=== PATIENT | male | born 1980 | race Caucasian/White ===

== ENCOUNTER 2016-09-18 21:07 | Emergency (ER) | payer MEDICAID ==
[2011-04-18 13:51] VITALS: BMI 33.2
[2016-09-18 22:16] LABS: APPEARANCE CLEAR (CLEAR); COLOR YELLOW (YELLOW); SPECIFIC GRAVITY 1.015 (1.005-1.020)
[2016-09-18 22:17] LABS: BILIRUBIN NEGATIVE (NEGATIVE); GLUCOSE NEGATIVE (NEGATIVE); KETONE NEGATIVE (NEGATIVE); LEUKOCYTE ESTERASE NEGATIVE (NEGATIVE); NITRITE NEGATIVE (NEGATIVE); PROTEIN NEGATIVE (NEGATIVE); UROBILINOGEN NORMAL (NORMAL)
[2016-09-18 22:56] LABS: BASOPHILS 0.3 % (0-2); EOSINOPHILS 2.4 % (0-7); HEMATOCRIT 51.4 % (42.0-54.0); HEMOGLOBIN 17.8 g/dL (13.5-17.5); IMMATURE GRANULOCYTES 0.3 % (0-5); LYMPHOCYTES 37.7 % (15-50); MCHC 34.6 g/dL (31.0-37.0); MCV 92.3 fL (80.0-100.0); MEAN PLATELET VOLUME 11.3 fL (7.4-10.4); NEUTROPHILS 53.3 % (40-80); PLATELET COUNT 220 10x3/uL (130-400); RBC 5.57 10x6/uL (4.20-6.10); RDW 13.4 % (11.5-14.5); WBC 11.6 10x3/uL (4.8-10.8)
[2016-09-18 23:07] LABS: ALBUMIN 3.9 g/dL (3.4-5.0); ALKALINE PHOSPHATASE 123 U/L (46-116); ALT (SGPT) 73 U/L (10-68); BILIRUBIN - TOTAL 0.51 mg/dL (0.2-1.3); CALC OSMOLALITY 279 mosm/kg (275-300); CALCIUM 9.3 mg/dL (8.5-10.1); CARBON DIOXIDE 26.8 mmol/L (21.0-32.0); CHLORIDE - SERUM 103 mmol/L (98-107); CREATININE - SERUM 0.9 mg/dL (0.6-1.3); GLUCOSE 110 mg/dL (74-106); POTASSIUM - SERUM 4.4 mmol/L (3.5-5.1); SODIUM 140 mmol/L (136-145); UREA NITROGEN 13 mg/dL (7-18); eGFR NON AFRICAN AMERICAN > 90 mL/min (90-120)
== END 2016-09-19 01:27 | disposition home or self-care (01) ==
LOC: D.ER 21:07
PROVIDERS: Emergency Medicine
DX: R10.2 Pelvic and perineal pain (principal); M54.5 Low back pain; R19.7 Diarrhea, unspecified; R11.2 Nausea with vomiting, unspecified

== ENCOUNTER 2016-11-23 22:30 | Emergency (ER) | payer MEDICAID ==
[2011-04-18 13:51] VITALS: BMI 33.2
== END 2016-11-24 00:35 | disposition home or self-care (01) ==
LOC: D.ER 22:30
DX: M25.572 Pain in left ankle and joints of left foot (principal); F17.200 Nicotine dependence, unspecified, uncomplicated

== ENCOUNTER 2016-11-27 11:45 | Emergency (ER) | payer MEDICAID ==
[2011-04-18 13:51] VITALS: BMI 33.2
== END 2016-11-27 15:05 | disposition home or self-care (01) ==
LOC: D.ER 11:45
DX: M25.572 Pain in left ankle and joints of left foot (principal); S82.402A Unspecified fracture of shaft of left fibula, initial encounter for closed fracture; X58.XXXA Exposure to other specified factors, initial encounter; Y93.89 Activity, other specified; Y92.89 Other specified places as the place of occurrence of the external cause; F17.200 Nicotine dependence, unspecified, uncomplicated

== ENCOUNTER 2016-12-16 12:14 | Emergency (ER) | payer MEDICAID ==
[2011-04-18 13:51] VITALS: BMI 33.2
[2016-12-16 12:56] LABS: BASOPHILS 0.3 % (0-2); EOSINOPHILS 1.4 % (0-7); HEMATOCRIT 48.7 % (42.0-54.0); HEMOGLOBIN 17.4 g/dL (13.5-17.5); IMMATURE GRANULOCYTES 0.2 % (0-5); LYMPHOCYTES 26.8 % (15-50); MCH 32.2 pg (26.0-34.0); MCHC 35.7 g/dL (31.0-37.0); MEAN PLATELET VOLUME 11.3 fL (7.4-10.4); MONOCYTES 5.6 % (2-11); NEUTROPHILS 65.7 % (40-80); PLATELET COUNT 199 10x3/uL (130-400); RBC 5.41 10x6/uL (4.20-6.10); WBC 11.1 10x3/uL (4.8-10.8)
[2016-12-16 13:09] LABS: ALBUMIN 3.7 g/dL (3.4-5.0); ALKALINE PHOSPHATASE 110 U/L (46-116); ALT (SGPT) 110 U/L (10-68); BILIRUBIN - TOTAL 0.92 mg/dL (0.2-1.3); CALC OSMOLALITY 279 mosm/kg (275-300); CALCIUM 9.3 mg/dL (8.5-10.1); CHLORIDE - SERUM 103 mmol/L (98-107); GLUCOSE 122 mg/dL (74-106); POTASSIUM - SERUM 4.1 mmol/L (3.5-5.1); PROTEIN - SERUM 7.9 g/dL (6.4-8.2); SODIUM 140 mmol/L (136-145); UREA NITROGEN 13 mg/dL (7-18); eGFR NON AFRICAN AMERICAN 89 mL/min (90-120)
[2016-12-16 13:28] LABS: CKMB 1.2 U/L (0.0-3.6); CREATINE KINASE 220 UL (21-232)
[2016-12-16 13:31] LABS: TROPONIN-I < 0.017 ng/mL (0.000-0.060)
== END 2016-12-16 14:20 | disposition home or self-care (01) ==
LOC: D.ER 12:14
PROVIDERS: Emergency Medicine
DX: R07.9 Chest pain, unspecified (principal); F17.200 Nicotine dependence, unspecified, uncomplicated

== ENCOUNTER 2017-06-05 11:32 | Emergency (ER) | payer MEDICAID ==
[2011-04-18 13:51] VITALS: BMI 33.2
[2017-06-05 12:12] LABS: BASOPHILS 0.2 % (0-2); EOSINOPHILS 1.6 % (0-7); HEMATOCRIT 49.3 % (42.0-54.0); HEMOGLOBIN 17.1 g/dL (13.5-17.5); IMMATURE GRANULOCYTES 0.2 % (0-5); LYMPHOCYTES 26.1 % (15-50); MCH 31.7 pg (26.0-34.0); MCHC 34.7 g/dL (31.0-37.0); MCV 91.5 fL (80.0-100.0); MEAN PLATELET VOLUME 11.3 fL (7.4-10.4); MONOCYTES 5.5 % (2-11); NEUTROPHILS 66.4 % (40-80); PLATELET COUNT 188 10x3/uL (130-400); RBC 5.39 10x6/uL (4.20-6.10); RDW 13.1 % (11.5-14.5); WBC 10.4 10x3/uL (4.8-10.8)
[2017-06-05 12:17] LABS: INR 1.02 (0.85-1.17)
[2017-06-05 12:19] LABS: D-DIMER-QUANTITATIVE < 0.27 ug/mLFEU (0.20-0.54)
[2017-06-05 12:38] LABS: ALBUMIN 3.5 g/dL (3.4-5.0); ALKALINE PHOSPHATASE 106 U/L (46-116); ALT (SGPT) 137 U/L (10-68); BILIRUBIN - TOTAL 0.84 mg/dL (0.2-1.3); CALC OSMOLALITY 273 mosm/kg (275-300); CALCIUM 8.3 mg/dL (8.5-10.1); CHLORIDE - SERUM 104 mmol/L (98-107); CREATININE - SERUM 1.1 mg/dL (0.6-1.3); GLUCOSE 121 mg/dL (74-106); POTASSIUM - SERUM 4.1 mmol/L (3.5-5.1); PROTEIN - SERUM 7.4 g/dL (6.4-8.2); SODIUM 136 mmol/L (136-145); UREA NITROGEN 16 mg/dL (7-18); eGFR NON AFRICAN AMERICAN 79 mL/min (90-120)
[2017-06-05 12:42] LABS: UDS - AMPHET NEGATIVE QUAL (NEGATIVE); UDS - BARB NEGATIVE QUAL (NEGATIVE); UDS - BENZO NEGATIVE QUAL (NEGATIVE); UDS - COCAINE NEGATIVE QUAL (NEGATIVE); UDS - OPIATE NEGATIVE QUAL (NEGATIVE); UDS - PCP NEGATIVE QUAL (NEGATIVE); UDS - THC NEGATIVE QUAL (NEGATIVE)
[2017-06-05 12:43] LABS: CHOL - HDL RATIO 5.7 ratio (2.3-4.9); CHOLESTEROL, TOTAL 182 mg/dL (0-200); CKMB 1.4 U/L (0.0-3.6); CREATINE KINASE 138 UL (21-232); HDL CHOLESTEROL 32 mg/dL (32-96); LDL CHOLESTEROL 79 mg/dL (0-100); LDL-HDL RATIO 2.5 ratio (1.5-3.5); PRO BNP 13 pg/mL (0-125); TRIGLYCERIDE 357 mg/dL (30-200)
[2017-06-05 12:44] LABS: TROPONIN-I < 0.017 ng/mL (0.000-0.060)
[2017-06-05 13:14] LABS: APPEARANCE CLOUDY (CLEAR); BILIRUBIN NEGATIVE (NEGATIVE); COLOR YELLOW (YELLOW); GLUCOSE NEGATIVE (NEGATIVE); KETONE NEGATIVE (NEGATIVE); NITRITE NEGATIVE (NEGATIVE); PROTEIN NEGATIVE (NEGATIVE)
[2017-06-05 13:14] LABS: AMYLASE - SERUM 45 U/L (25-115); LIPASE 131 U/L (73-393)
[2017-06-05 13:15] LABS: AMORPHOUS SEDIMENT >1+ /lpf (NONE SEEN); BACTERIA FEW /hpf (NONE SEEN); EPITHELIAL CELLS RARE /hpf (0-5); MUCUS <1+ /lpf (NONE SEEN); WHITE CELLS - URINE RARE /hpf (0-5)
== END 2017-06-05 14:24 | disposition home or self-care (01) ==
LOC: D.ER 11:32
PROVIDERS: Emergency Medicine; Nurse Practitioner Family
DX: R09.1 Pleurisy (principal); Z86.79 Personal history of other diseases of the circulatory system

== ENCOUNTER 2017-06-15 20:38 | Emergency (ER) | payer MEDICAID ==
[2011-04-18 13:51] VITALS: BMI 33.2
[2017-06-15 21:11] LABS: BASOPHILS 0.3 % (0-2); EOSINOPHILS 1.7 % (0-7); HEMATOCRIT 47.4 % (42.0-54.0); HEMOGLOBIN 16.9 g/dL (13.5-17.5); IMMATURE GRANULOCYTES 0.3 % (0-5); LYMPHOCYTES 32.5 % (15-50); MCH 32.3 pg (26.0-34.0); MCHC 35.7 g/dL (31.0-37.0); MCV 90.5 fL (80.0-100.0); MEAN PLATELET VOLUME 11.7 fL (7.4-10.4); MONOCYTES 6.7 % (2-11); NEUTROPHILS 58.5 % (40-80); RBC 5.24 10x6/uL (4.20-6.10); RDW 12.9 % (11.5-14.5); WBC 13.3 10x3/uL (4.8-10.8)
[2017-06-15 21:12] LABS: PLATELET COUNT 276 10x3/uL (130-400)
[2017-06-15 21:52] LABS: APTT 31.5 SECONDS (22.8-39.4); PROTIME 12.8 SECONDS (11.6-15.0)
[2017-06-15 22:08] LABS: ALBUMIN 3.4 g/dL (3.4-5.0); ALKALINE PHOSPHATASE 104 U/L (46-116); ALT (SGPT) 116 U/L (10-68); BILIRUBIN - TOTAL 0.56 mg/dL (0.2-1.3); CALC OSMOLALITY 270 mosm/kg (275-300); CALCIUM 8.9 mg/dL (8.5-10.1); CARBON DIOXIDE 25.8 mmol/L (21.0-32.0); CHLORIDE - SERUM 101 mmol/L (98-107); CKMB 1.7 U/L (0.0-3.6); CREATINE KINASE 229 UL (21-232); GLUCOSE 115 mg/dL (74-106); POTASSIUM - SERUM 3.6 mmol/L (3.5-5.1); PRO BNP 27 pg/mL (0-125); PROTEIN - SERUM 7.2 g/dL (6.4-8.2); SODIUM 135 mmol/L (136-145); UREA NITROGEN 12 mg/dL (7-18); eGFR NON AFRICAN AMERICAN 88 mL/min (90-120)
[2017-06-15 22:14] LABS: TROPONIN-I < 0.017 ng/mL (0.000-0.060)
== END 2017-06-16 00:27 | disposition home or self-care (01) ==
LOC: D.ER 20:38
PROVIDERS: Family Medicine
DX: R00.2 Palpitations (principal); I10 Essential (primary) hypertension

== ENCOUNTER 2017-10-27 18:52 | Emergency (ER) | payer MEDICAID ==
[~2017-10-27] VITALS: Ht 195.6 cm; Wt 140.9 kg
[2017-10-27 19:48] VITALS: Ht 195.6 cm; Wt 140.9 kg
[2017-10-27 20:42] LABS: BASOPHILS 0.2 % (0-2); HEMATOCRIT 48.1 % (42.0-54.0); HEMOGLOBIN 16.9 g/dL (13.5-17.5); IMMATURE GRANULOCYTES 0.3 % (0-5); LYMPHOCYTES 36.7 % (15-50); MCHC 35.1 g/dL (31.0-37.0); MCV 91.1 fL (80.0-100.0); MEAN PLATELET VOLUME 10.8 fL (7.4-10.4); NEUTROPHILS 54.8 % (40-80); RBC 5.28 10x6/uL (4.20-6.10); RDW 13.1 % (11.5-14.5); WBC 13.1 10x3/uL (4.8-10.8)
[2017-10-27 20:59] LABS: PLATELET COUNT 196 10x3/uL (130-400)
[2017-10-27 21:10] LABS: ALBUMIN 3.7 g/dL (3.4-5.0); ALKALINE PHOSPHATASE 100 U/L (46-116); ALT (SGPT) 95 U/L (10-68); BILIRUBIN - TOTAL 0.55 mg/dL (0.2-1.3); CALC OSMOLALITY 276 mosm/kg (275-300); CALCIUM 8.6 mg/dL (8.5-10.1); CARBON DIOXIDE 26.7 mmol/L (21.0-32.0); CHLORIDE - SERUM 104 mmol/L (98-107); CREATININE - SERUM 0.9 mg/dL (0.6-1.3); GLUCOSE 80 mg/dL (74-106); POTASSIUM - SERUM 3.9 mmol/L (3.5-5.1); PROTEIN - SERUM 7.6 g/dL (6.4-8.2); SODIUM 139 mmol/L (136-145); UREA NITROGEN 13 mg/dL (7-18); eGFR NON AFRICAN AMERICAN > 90 mL/min (90-120)
[2017-10-27 22:21] LABS: APPEARANCE CLEAR (CLEAR); BILIRUBIN NEGATIVE (NEGATIVE); COLOR YELLOW (YELLOW); GLUCOSE NEGATIVE (NEGATIVE); KETONE NEGATIVE (NEGATIVE); NITRITE NEGATIVE (NEGATIVE); PROTEIN NEGATIVE (NEGATIVE); SPECIFIC GRAVITY 1.025 (1.005-1.020); UROBILINOGEN NORMAL (NORMAL)
[2017-10-28] MEDS ORDERED: ACETAMINOPHEN500 M1 PO (00:04)
[2017-10-28] MEDS ORDERED: MEDROL DOSE PACK4 MG PO (00:04)
[2017-10-28] MEDS ORDERED: IBUPROFEN800 MG PO (00:04)
[2017-10-28] MEDS ORDERED: KEFLEX500 MG PO (00:04)
[2017-10-28 00:28] VITALS: BP 139/74
== END 2017-10-28 00:27 | disposition home or self-care (01) ==
LOC: D.ER 18:52
PROVIDERS: Family Medicine
DX: J02.9 Acute pharyngitis, unspecified (principal); R13.10 Dysphagia, unspecified; F17.200 Nicotine dependence, unspecified, uncomplicated

== ENCOUNTER 2017-12-31 14:21 | Inpatient (IN) | payer MEDICAID ==
[~2017-12-31] VITALS: Ht 195.6 cm; Wt 154.8 kg
[2017-12-31] VITALS (10 sets, daily range): BP systolic 110–130; BP diastolic 67–84; BMI 36.8
--- NOTE | ~2017-12-31 | HEMODYNAMI ---
PATIENT:HEMANTH JUDD MEDICAL RECORD: [id number] : 76 [facility] [id number] ADMISSION DATE: 12/31/17 Generatedon:12/31/201716:23 Patient name: HEMANTH JUDD Patient #: [id number] : 1980 Date of study: 12/31/2017 Page: Of Hemodynamic Procedure Report Patient Data Patient Demographics Procedure consent was obtained First Name: HEMANTH Gender: Male Last Name: DUTCH : 1980 [facility] Initial: Nabil Age: 37 year(s) Patient #: [id number] Race: SSN: [id number] Additional ID: [id number] Contact details [address]: [address] [place] [address] circle State: [place] City: [place] Zip code: [address] Admission Admission Data Admission Date: 12/31/2017 Admission Time: 15:09 Arrival Date: 12/31/2017 Arrival Time: 14:21 Admit Source: Emergency Insurance Payor: Medicaid department Room #: D.T04 Lab Results Lab Result Date: 12/31/2017 Lab Result Time: 0:00 Biochemistry Name Units Result Min Max BUN mg/dl 26 --(----)-* 7 18 Creatinine mg/dl 1.6 --(----)-* 0.6 1.3 CBC Name Units Result Min Max Hemoglobin g/dl 12.9 -*(----)-- 13.5 17.5 Procedure Procedure Types Cath Procedure Diagnostic Procedure LHC LHC w/Coronaries Sedation Charges Moderate Sedation up to 30 minutes PCI Procedure AMI/SVG/CERTIFIED NURSE PRACTITIONER PTCA or Stent AMI-BMS/YOVANY Initial PTCA PTCA Additional Procedure Description Procedure Date Procedure Date: 12/31/2017 Procedure Start Time: 14:58 Procedure End Time: 16:14 Procedure Staff Name Function Rohan Collins MD Performing Physician Jocelin Fall RT Monitor Nikkie Colón RT Scrub Adonis Braun RN Nurse Herman Moseley MD Assisting physician Procedure Data Cath Procedure Fluoroscopy Diagnostic fluoroscopy Total fluoroscopy Time: time: 22.8 min 22.8 min Diagnostic fluoroscopy Total fluoroscopy dose: dose: 4780 mGy 4780 mGy Contrast Material Contrast Material Type Amount (ml) Isovue 300 333 Entry Location Entry Primary Successful Side Size Upsize Upsize Entry Closure Succes sful Closure Location (Fr) 1 (Fr) 2 (Fr) Remarks Device Remarks Femoral Right 6 Fr Exoseal artery Short Femoral Right 6 Fr Sheath vein Short sutured in place Estimated blood loss: 5 ml Diagnostic catheters Device Type Used For End Catheter Placement MULTIPACK JL 4.0 5Fr Left Coronary catheter Angiography MULTIPACK 3DRC 5Fr Right Coronary catheter Angiography MULTIPACK Pigtail 5 Fr Right Coronary catheter Angiography Procedure Complications No complications Procedure Medications Medication Administration Route Dosage Amiodarone Loading I.V. drip Dose (150mg/100ml D5W) Heparin Bolus I.V. 9000 units Fentanyl I.V. 50 mcg Versed I.V. 1 mg Lopressor I.V. 5 mg Fentanyl I.V. 50 mcg Versed I.V. 1 mg Oxygen NC 2 l/min Heparin Flush Bag added to field 2 bags (1000units/500ml NS) 0.9% NaCl I.V. 100 ml/hr Fentanyl I.V. 50 mcg Fentanyl I.V. 50 mcg Heparin Bolus I.V. 4000 units Integrilin (Bolus I.V. 11.2 ml 2mg/ml) Fentanyl I.V. 50 mcg Fentanyl I.V. 50 mcg Integrilin Drip I.V. drip 20 ml/hr (75mg/100ml) Integrilin Drip I.V. drip 20 ml/hr (75mg/100ml) Brilinta P.O. 180 mg Hemodynamics Rest HGB: 12.9 (g/dl) Heart Rate: 174 (bpm) Pressure Samples Time Site Value (mmHg) Purpose Heart Use Rate(bpm) 15:19 LV 131/16,37 Snapshot 77 Gradients Valve Time Site Site Mean SEP/DFP Peak To Heart Use 1 2 (mmHg) (sec/min) Peak Rate (mmHg) (bpm) Aortic 15:19 LV AO 87 Snapshots Pre Cath Intra NCS Post Cath Vital Signs Time Heart Resp SPO2 etCO2 NIBP (mmHg) Rhythm Pain Sedation Rate (ipm) (%) (mmHg) Status Level (bpm) 14:56:49 74 17 0 Measuring NSR 0 (11) 10(A) , No pain 14:57:12 113 15 0 165/104(131) NSR 0 (11) 10(A) , No pain 15:02:11 300 15 98 0 Measuring NSR 0 (11) 10(A) , No pain 15:03:35 143 18 100 0 Time NSR 0 (11) 10(A) Exceeded , No pain 15:05:34 109 13 98 0 144/93(128) NSR 0 (11) 10(A) , No pain 15:09:52 136 12 96 0 151/101(121) NSR 0 (11) 10(A) , No pain 15:14:14 103 9 96 0 142/97(110) NSR 0 (11) 10(A) , No pain 15:18:32 109 8 96 0 152/93(131) NSR 0 (11) 10(A) , No pain 15:22:52 95 13 96 0 135/100(118) NSR 0 (11) 10(A) , No pain 15:27:06 94 19 93 26.1 148/98(120) NSR 0 (11) 10(A) , No pain 15:32:05 96 16 92 19.4 Measuring NSR 0 (11) 10(A) , No pain 15:32:07 96 12 92 19.4 140/104(118) NSR 0 (11) 10(A) , No pain 15:36:28 95 17 92 26.9 152/94(123) NSR 0 (11) 10(A) , No pain 15:40:54 96 17 92 11.2 159/103(129) NSR 0 (11) 10(A) , No pain 15:45:22 95 17 93 29.9 157/106(128) NSR 0 (11) 10(A) , No pain 15:49:48 93 16 90 25.4 143/79(104) NSR 0 (11) 10(A) , No pain 15:54:08 102 16 93 28.4 152/99(116) NSR 0 (11) 10(A) , No pain 15:58:33 206 17 88 25.4 145/108(123) NSR 0 (11) 10(A) , No pain 16:02:55 97 17 86 26.9 156/99(132) NSR 0 (11) 10(A) , No pain 16:07:25 99 17 87 31.4 171/59(124) NSR 0 (11) 10(A) , No pain 16:11:51 96 17 88 8.9 146/89(101) NSR 0 (11) 10(A) , No pain Medications Time Medication Route Dose Verified Delivered Reason Notes Effectiveness by by 14:50:18 Oxygen NC 2 Rohan Adonis Per physician l/min Dennis Braun RN 14:50:30 Heparin Flush added 2 Rohan Adonis used for Bag to bags Dennis Braun RN procedure (1000units/500ml field NS) 14:50:40 0.9% NaCl I.V. 100 Rohan Adonis Per physician ml/hr Dennis Braun RN 14:58:31 Amiodarone I.V. Rohan Adonis for arrhythmia Loading Dose drip Dennis Braun RN (150mg/100ml D5W) 15:05:02 Heparin Bolus I.V. 9000 Rohan Adonis for units Dennis Braun RN anticoagulation 15:06:50 Fentanyl I.V. 50 Rohan Adonis for sedation mcg Dennis Braun RN 15:06:57 Versed I.V. 1 mg Rohan Adonis for sedation Dennis Braun RN 15:12:15 Lopressor I.V. 5 mg Rohan Adonis for arrhythmia Dennis Braun RN 15:17:47 Fentanyl I.V. 50 Rohan Adonis for sedation mcg Dennis Braun RN 15:17:51 Versed I.V. 1 mg Rohan Adonis for sedation Dennis Braun RN 15:30:19 Fentanyl I.V. 50 Rohan Adonis for sedation mcg Dennis Braun RN 15:40:24 Fentanyl I.V. 50 Rohan Adonis for sedation mcg Dennis Braun RN 15:49:49 Heparin Bolus I.V. 4000 Rohan Adonis for units Dennis Braun RN anticoagulation 15:50:02 Integrilin I.V. 11.2 Rohan Adonis for (Bolus 2mg/ml) ml Dennis Braun RN anticoagulation 15:52:06 Fentanyl I.V. 50 Rohan Adonis for sedation mcg Dennis Braun RN 15:55:24 Fentanyl I.V. 50 Rohan Adonis for sedation mcg Dennis Braun RN 16:03:42 Integrilin Drip I.V. 20 Rohan Adonis for (75mg/100ml) drip ml/hr Dennis Braun RN antiplatelet therapy 16:05:26 Integrilin Drip I.V. 20 Rohan Adonis for (75mg/100ml) drip ml/hr Dennis Braun RN antiplatelet therapy 16:07:34 Brilinta P.O. 180 Rohan Adonis for mg Dennis Braun RN antiplatelet therapy Procedure Log Time Note 14:35:07 Adonis Braun RN sent for patient. Start room use. 14:44:02 Informed consent obtained and on chart 14:44:20 Admit Source: Emergency department 14:44:22 Arrival Date: 12/31/2017 2:21:00 PM 14:44:29 Insurance Payor : Medicaid 14:44:45 Diagnostic Cath Status : Emergency 14:45:08 Time tracking: Regular hours (M-F 7:00 - 5:00) 14:45:12 Plan of Care:Hemodynamics will remain stable., Cardiac rhythm will remain stable., Comfort level will be maintained., Respiratory function will remain adequate., Patient/ family verbilizes understanding of procedure., Procedure tolerated without complication., Recovers from procedure without complications.. 14:45:49 Patient received from ED to CCL 2 Alert and oriented. Tansferred to table in Supine position. 14:45:50 Warm blankets applied, and ashley hugger turned on for patient comfort. 14:45:52 Correct patient and procedure confirmed by team. 14:45:52 ECG and BP/O2 sat monitors applied to patient. 14:50:18 Oxygen 2 l/min NC was administered by Adonis Braun RN; Per physician; 14:50:30 Heparin Flush Bag (1000units/500ml NS) 2 bags added to field was administered by Adonis Braun RN; used for procedure; 14:50:40 0.9% NaCl 100 ml/hr I.V. was administered by Adonis Braun RN; Per physician; 14:55:00 Vital chart was started 14:55:03 Baseline sample Acquired. 14:55:07 Full Disclosure recording started 14:55:13 H&P Date Dictated: 12/31/2017 New H&P dictated by physician.. 14:55:14 Pre-procedure instructions explained to patient. 14:55:15 Pre-op teaching completed and patient verbalized understanding. 14:55:16 Family in waiting room. 14:55:19 Is the patient allergic to Iodine/contrast media? Unknown. 14:55:21 Was the patient premedicated? Unknown 14:55:22 Is patient on blood thinner?Unknown 14:55:23 Patient diabetic? Unknown. 14:55:26 Previous problem with sedation/anesthesia? Unknown ? 14:55:28 Snore? Unknown 14:55:30 Sleep apnea? Unknown 14:55:31 Deviated septum? Unknown 14:55:32 Opens mouth fully? Unknown 14:55:33 Sticks out tongue? Unknown 14:55:36 Airway obstruction? Unknown ? 14:55:39 Dentures? Unknown ? 14:55:50 IV patent on arrival in left antecubital with 0.9% NaCl at [facility]. 14:55:57 Right groin area was prepped with chlora-prep and draped in sterile fashion 14:55:58 Alarms reviewed by R. N. 14:55:58 Sharps counted by scrub and verified by R.N. 14:56:00 Physician arrived 14:56:01 --------ALL STOP TIME OUT------ 14:56:01 Final Timeout: patient, procedure, and site verified with staff and physician. All members of the team are in agreement. 14:56:03 Right groin site verified by team. 14:56:05 Physical assessment completed. ASA score P 2 - A patient with mild systemic disease as per Rohan Collins MD. 14:56:10 Sedation plan: IV Moderate Sedation Medication:Versed, Fentanyl 14:56:23 Use device set Femoral Dx 14:56:24 ACIST Syringe (72749) opened to sterile field. 14:56:24 Bag Decanter (2002) opened to sterile field. 14:56:25 Medline Cath Pack ([id number]) opened to sterile field. 14:56:25 DIAGNOSTIC WIRE .035 260cm J wire (066684) opened to sterile field. 14:56:26 ACIST Hand Control (70154) opened to sterile field. 14:56:27 ACIST Manifold (56582) opened to sterile field. 14:56:27 DIAGNOSTIC Multipack 5Fr catheter set (VZ3977) opened to sterile field. 14:56:28 Tegaderm 4 x 4 (1626W) opened to sterile field. 14:56:39 SHEATH Prelude 6Fr 0.035 (CCN-1T-83-035) opened to sterile field. 14:56:43 Procedure started. 14:58:08 patient went into Vtach on the table during preperation for procedure; quick combo pad placed on chest and shocked 3 times at 360 joules;code blue called 14:58:31 Amiodarone Loading Dose (150mg/100ml D5W) I.V. drip was administered by Adonis Braun RN; for arrhythmia; 14:58:50 Local anesthetic to right femoral artery with Lidocaine 2% by Rohan Collins MD.INITIAL ACCESS ONLY 14:59:00 A 6 Fr Short sheath was inserted into the Right Femoral artery 14:59:28 A MULTIPACK JL 4.0 5Fr catheter was advanced over the wire and used for Left Coronary Angiography. 14:59:36 Defibrillator synced and charged to 360 Joules. 14:59:38 Shock delivered. 15:00:06 LCA angiography performed. 15:00:14 Injector settings: Ml/sec: 3, Volume: 6, 15:01:01 TUBING High Pressure Extension Tubing (Dennis) ([id number]) opened to sterile field. 15:01:01 GUIDE 6FR XBLAD 3.5 catheter ([id number]) opened to sterile field. 15:01:26 Defibrillator synced and charged to 360 Joules. 15:01:29 Shock delivered. 15:02:28 Defibrillator synced and charged to 360 Joules. 15:02:29 Shock delivered. 15:02:51 BMW 300cm Chariton 2 J wire ([id number]) opened to sterile field. 15:03:28 6 Fr xblad 3.5 guide catheter was inserted over the wire 15:03:31 bmw wire advanced. 15:03:55 Defibrillator synced and charged to 360 Joules. 15:04:45 Inflate balloon Inflation number: 1 A EMERGE OTW 3.0 x 15 balloon ([id number]) was prepped and advanced across the Ramus, then inflated to 10 TYREL for 0:10 (min:sec). 15:05:02 Heparin Bolus 9000 units I.V. was administered by Adonis Braun RN; for anticoagulation; 15:05:04 Inflation number: 2 The EMERGE OTW 3.0 x 15 balloon ([id number]) was reinflated across the Ramus, to 12 TYREL for 0:10 (min:sec). 15:06:50 Fentanyl 50 mcg I.V. was administered by Adonis Braun RN; for sedation; 15:06:57 Versed 1 mg I.V. was administered by Adonis Braun RN; for sedation; 15:08:08 Wire removed. 15:08:20 WHISPER 300cm guide wire ([id number]) opened to sterile field. 15:12:15 Lopressor 5 mg I.V. was administered by Adonis Braun RN; for arrhythmia; 15:15:29 whisper wire advanced and removed 15:15:34 Catheter removed. 15:15:42 A MULTIPACK 3DRC 5Fr catheter was advanced over the wire and used for Right Coronary Angiography. 15:17:09 RCA angiography performed. 15:17:11 Injector settings: Ml/sec: 3, Volume: 6, 15:17:46 Catheter removed. 15:17:47 Fentanyl 50 mcg I.V. was administered by Adonis Braun RN; for sedation; 15:17:51 Versed 1 mg I.V. was administered by Adonis Braun RN; for sedation; 15:17:59 A MULTIPACK Pigtail 5 Fr catheter was advanced over the wire and used for Right Coronary Angiography. 15:19:08 LV hemodynamics recorded. 15:19:09 LV gram done using DUVAL 15:19:12 Injector settings: Ml/sec: 5, Volume: 15, 15:19:31 EF : 40 % 15:19:47 Catheter removed. 15:21:33 6 Fr xblad 3.5 guide catheter was inserted over the wire 15:27:49 whisper wire advanced. 15:29:38 FIELDER XT J 300cm guide wire ([id number]) opened to sterile field. 15:29:44 Wire removed. 15:29:52 fielder wire advanced. 15:30:19 Fentanyl 50 mcg I.V. was administered by Adonis Braun RN; for sedation; 15:38:51 Dr Moseley scrubbing in to assist 15:40:21 A 6 Fr Short sheath was inserted into the Right Femoral vein 15:40:24 Fentanyl 50 mcg I.V. was administered by Adonis Braun RN; for sedation; 15:40:30 SuperCross Microcatheter 90 angle (5304) opened to sterile field. 15:40:51 SHEATH Prelude 6Fr 0.035 (BPO-5E-35-035) opened to sterile field. 15:41:30 CHOICE PT Extra Support J 300cm guide wire ([id number]) opened to sterile field. 15:43:03 super cross catheter and choice pt extra support wire used to gain access to LAD 15:44:48 Wire advanced across lesion. 15:45:00 supercross removed over wire 15:48:28 Inflate balloon Inflation number: 1 A EUPHORA 3.5 x 20 Balloon ([id number]) was prepped and advanced across the Prox LAD, then inflated to 10 TYREL for 0:10 (min:sec). 15:49:49 Heparin Bolus 4000 units I.V. was administered by Adonis Braun RN; for anticoagulation; 15:50:02 Integrilin (Bolus 2mg/ml) 11.2 ml I.V. was administered by Adonis Braun RN; for anticoagulation; 15:50:03 Balloon removed over the wire. 15:51:50 BMW 300cm Chariton 2 J wire ([id number]) opened to sterile field. 15:52:06 Fentanyl 50 mcg I.V. was administered by Adonis Braun RN; for sedation; 15:52:19 choice pt wire exchanged for bmw wire 15:53:06 Inflation number: 2 The EMERGE OTW 3.0 x 15 balloon ([id number]) was reinflated across the Prox LAD, to 14 TYREL for 0:10 (min:sec). 15:53:26 Inflation number: 3 The EMERGE OTW 3.0 x 15 balloon ([id number]) was reinflated across the Prox LAD, to 14 TYREL for 0:10 (min:sec). 15:55:24 Fentanyl 50 mcg I.V. was administered by Adonis Braun RN; for sedation; 15:56:27 Place stent Inflation Number: 4 A INTEGRITY OTW 4.0 X 22 stent ([id number]) was prepped and advanced across the Prox LAD. The stent was deployed at 14 TYREL for 0:10 (min:sec). 15:57:52 Stent catheter was removed intact over wire. 16:00:00 EXOSEAL 6Fr (EX600) opened to sterile field. 16:00:15 Sheath removed intact; hemostasis achieved with Exoseal to the Right Femoral artery. 16:00:19 Procedure ended.(Physican Out) 16:02:28 Fluoroscopy time 22.80 minutes. 16::35 Flurop Dose total: 4780 16::35 Fluoroscopy dose: 4780 mGy 16:03:14 Contrast amount:Isovue 300 333ml. 16:03:24 Sharps counted by scrub and verified by R.N. 16:03:26 Insertion/operative site no bleeding no hematoma. 16:03:28 Post-op/insertion site Right Femoral artery dressed using a 4 x 4 and Tegaderm. 16:03:31 Post right femoral artery:stable 16:03:38 Post Procedure Pulses reassessed and unchanged 16:03:42 Integrilin Drip (75mg/100ml) 20 ml/hr I.V. drip was administered by Adonis Braun RN; for antiplatelet therapy; 16:03:43 Post procedure rhythm: unchanged. 16:03:46 Estimated blood loss: 5 ml 16:03:47 Post procedure instruction explained to patient.Patient verbalizes understanding. 16:05:26 Integrilin Drip (75mg/100ml) 20 ml/hr I.V. drip was administered by Adonis Braun RN; for antiplatelet therapy; 16:07:34 Brilinta 180 mg P.O. was administered by Adonis Braun RN; for antiplatelet therapy; 16:08:51 Patient needs reinforcement of post procedure teaching. 16:09:13 Sheath removed intact; hemostasis achieved with Sheath sutured in place to the Right Femoral vein. 16:13:51 Procedure type changed to Cath procedure, Diagnostic procedure, LHC, LHC w/Coronaries, Sedation Charges, Moderate Sedation up to 30 minutes, PCI procedure, AMI/SVG/CERTIFIED NURSE PRACTITIONER PTCA or Stent, AMI-BMS/YOVANY Initial, PTCA, PTCA Additional 16:13:52 Procedure and supply charges have been captured, reviewed, submitted and are correct. 16:13:55 Procedure Complication : No complications 16:13:58 Vital chart was stopped 16::58 See physician's report for complete and final results. 16:14:15 Report given to CVICU. 16:14:18 Patient transfered to CVICU with Stretcher. 16:14:21 Procedure ended. 16:14:21 Full Disclosure recording stopped 16:14:28 ACC-PCI Only Patient was given prescriptions, or instructed by Rohan Collins MD to start/continue the following medications upon discharge: Plavix 16:14:30 End room use (Document Last) 16:15:31 Lab Result : Hemoglobin 12.9 g/dl 16:15:31 Lab Result : Creatinine 1.6 mg/dl 16:15:31 Lab Result : BUN 26 mg/dl Intervention Summary Intervention Notes Time ActionType Lesion and Equipment Action# Pressure Duration Attributes Used 15:04:45 Inflate Ramus EMERGE OTW 1 10 00:10 balloon 3.0 x 15 balloon ([id number]) 15:05:04 Reinflate Ramus EMERGE OTW 2 12 00:10 balloon 3.0 x 15 balloon ([id number]) 15:48:28 Inflate Prox LAD EUPHORA 3.5 1 10 00:10 balloon x 20 Balloon ([id number]) 15:53:06 Reinflate Prox LAD EMERGE OTW 2 14 00:10 balloon 3.0 x 15 balloon ([id number]) 15:53:26 Reinflate Prox LAD EMERGE OTW 3 14 00:10 balloon 3.0 x 15 balloon ([id number]) 15:56:27 Place stent Prox LAD INTEGRITY 4 14 00:10 OTW 4.0 X 22 stent ([id number]) Device Usage Item Name Manufacture Quantity Catalog Number Hospital Part Current Minimal Lot# / Charge Number Stock Stock Serial# Code ACIST Syringe Acist 1 64012 437407 067254 [id number] 20 (33431) [employer] Bag Decanter Microtek 1 502418 34096 923744 5 () Medical Inc. Medline Cath Cardinal [address] [id number] 1925[address] [facility] (OBSZ92790) DIAGNOSTIC WIRE St Silvio 1 490294 015824 674385 330687 30 .035 260cm J wire (304745) ACIST Hand Acist 1 78216 782284 997558 776258 5 Control (63983) [employer] Inc ACIST Manifold Acist 1 16982 111186 780418 436754 5 (42536) [employer] Inc DIAGNOSTIC Cardinal 1 RC0799 332557 56162 860976 30 Multipack 5Fr Health catheter set (AD5163) Tegaderm 4 x 4 3M 1 1626W 492739 407978 637263 5 (1626W) SHEATH Prelude Merit 2 TUC-2J-22-35 893537 3208409 191014 5 6Fr 0.035 Medical (YLC-1R-62-035) MULTIPACK JL Cardinal 1 120137 5 4.0 5Fr Health catheter TUBING High Merit 1 [id number] 386106 76014 331327 10 Pressure Medical Extension Tubing (Collins) (JV8862Q) GUIDE 6FR XBLAD Cardinal 1 10038004 909958 226829 893137 10 3.5 catheter Health (11533767) BMW 300cm Adames 2 5992301D 553058 250917 078461 5 Chariton 2 J Vascular wire (1444957N) EMERGE OTW 3.0 Sumner 1 [id number] 515284 759915 223639 5 15240215 x 15 balloon Scientific ([id number]) WHISPER 300cm Adames 1 [id number] 941912 284598 744212 5 guide wire Vascular (1329172OP) MULTIPACK 3DRC Cardinal 1 351387 5 5Fr catheter Health MULTIPACK Cardinal 1 072656 5 Pigtail 5 Fr Health catheter FIELDER XT J Adames 1 [id number] 735110 524481 187137 5 300cm guide Vascular wire ([id number]) SuperCross Vascular 1 5304 407515 017924 645662 5 Microcatheter Solutions 90 angle (5304) CHOICE PT Extra Sumner 1 [id number] 960598 091850 078488 5 Support J 300cm Scientific guide wire ([id number]) EUPHORA 3.5 x Medtronic 1 [id number] 517468 059347 780471 5 [id number] 20 Balloon (TVY7496Z) INTEGRITY OTW Medtronic 1 [id number] 716558 045306 5 [id number] 4.0 X 22 stent ([id number]) EXOSEAL 6Fr Cardinal 1 EX600 122442 524485 035615 10 (EX600) Health Signature Audit [place] Stage Time Signature Unsigned Intra-Procedure 12/31/2017 Jocelin Fall 4:23:36 PM RT(R) Signatures Monitor : Jocelin Fall RT Signature : Date : Time : [address] [place] [address]
--- NOTE | ~2017-12-31 | CN ---
PATIENT NAME:HEMANTH LOVE MEDICAL RECORD: [id number] : 76 LOCATION:[facility] ADMIT DATE: 12/31/17 ACCOUNT: [id number] CONSULTING PHYSICIAN: CARRILLO LYNNE MD REFERRING PHYSICIAN: ELICEO COLLINS M.D. DATE OF CONSULTATION: 01/01/2018 CONSULT REQUESTING PHYSICIAN: Eliceo Collins MD REASON FOR CONSULTATION: Hemoptysis. HISTORY OF PRESENT ILLNESS: Mr. Love is a 37-year-old gentleman who was admitted yesterday with chest pain, found out his anterior wall AR. The patient was taken to the cardiac catheterization and during the catheterization, he went into V-tach and the patient was shocked times 6. Today, he is complaining of some chest wall pain and also whenever he coughs, he is coughing blood. The blood pressure is fresh, is not clotted blood and is not frothy. It is tinged with phlegm. REVIEW OF SYSTEMS: Mainly in the history of present illness. PAST MEDICAL HISTORY: 1. Hypertension. 2. Diabetes mellitus. 3. History of cerebrovascular accident. PAST SURGICAL HISTORY: He has a knee surgery. He has a left ankle surgery. ALLERGIES: There is no known drug allergy. MEDICATIONS: On MyWeb[employer] is reviewed. PERSONAL AND SOCIAL HISTORY: The patient is a drinker. FAMILY HISTORY: Noncontributory. PHYSICAL EXAMINATION: GENERAL: Now, the patient is lying comfortably in bed. He is not in acute distress. VITAL SIGNS: The blood pressure is 121/77, pulse is 84, respiration is 16, temperature 98.2, SpO2 is 93% on room air. HEENT: Conjunctivae are pink. Sclerae are not icteric. NECK: The neck is supple, no JVD. CHEST: The chest excursion is minimal on both sides. There is no wheeze, no rales. The chest wall is tender on palpation. HEART: Rhythm regular, normal sound, no murmur. ABDOMEN: The abdomen is soft, bowel sounds present. No hepatosplenomegaly. RECTAL: Deferred. EXTREMITIES: No cyanosis, no clubbing, no pedal edema. SKIN: The skin is warm, normal turgor. CENTRAL NERVOUS SYSTEM: The patient is awake and alert. There is no obvious cranial nerve abnormality. The gait was not tested. IMAGING: Chest radiograph on the , there is mild diffuse increase in interstitial marking. Possible pulmonary edema. CONSULT REPORT [id number] [facility] DATA: CBC: WBC 18.2, hemoglobin 16.8, hematocrit 48.6, the platelet count 202. Chemistry: Sodium 139, potassium 4.2, BUN is 11, creatinine 0.9. IMPRESSION: 1. Hemoptysis, rule out pulmonary embolism. The patient is high risk for recent AR, cardiac catheterization yesterday. 2. Possible bronchitis with significant leukocytosis. 3. Acute anterior wall myocardial infarction. 4. V-tach, status post shock times 6. Chest pain secondary to AR as well as secondary to shock of the chest. 5. History of cerebrovascular accident. RECOMMENDATION: 1. Start racemic nebulizer p.r.n. 2. Check the CTA of the chest. Check the anti-GBM. Check the ANCA level. 3. Start on empiric Augmentin for possible bronchitis. Follow up labs and chest radiograph. Dr. Collins, thank you for involving me in the care of Mr. Love. TRANSINT:[id number] Voice Confirmation ID: [id number] DOCUMENT ID: [id number] CARRILLO LYNNE MD at 1301 CC: [id number] DICTATION DATE: 01/01/181732 CREAM BUYER: 01/01/18 1805 DIS IN 01/05/18 [facility] [address] [place] [address]
--- NOTE | ~2017-12-31 | OP ---
PATIENT NAME: HEMANTH JUDD MEDICAL RECORD: [id number] :76 LOCATION:[facility] EarlCV07 ADMISSION DATE:12/31/17 SURGEON: ADELIA BAEZA MD DATE OF OPERATION: 01/02/2018 DATE OF SERVICE: 01/02/2018 PROCEDURES: 1. PTCA stent of left circumflex. 2. Selective coronary angiography. INDICATION: Angina and coronary artery disease. PROCEDURE IN DETAIL: After informed consent was obtained and after detailed description of risks, benefits as well as alternative therapies, the patient elected to proceed with angiogram and angioplasty. The right radial area was prepped and draped in normal sterile fashion. Right radial artery was cannulated via modified Seldinger technique with placement of 6-Bengali sheath. All catheters exchanged through this sheath. FINDINGS: The left circumflex had 90% stenosis. This was addressed with a 3.0 x 18 mm Integrity stent. Result was 0% residual stenosis. OVERALL IMPRESSION: Successful percutaneous transluminal coronary angioplasty stent of the left circumflex going from 90% initial stenosis to 0% residual stenosis. TRANSINT:[id number] Voice Confirmation ID: [id number] DOCUMENT ID: [id number] ADELIA BAEZA MD at 1616 CC: [id number] DICTATION DATE: 01/02/18 1219 DIAGNOSTICS SALES DEVELOPER: 01/02/18 1227 [place] [address]
--- NOTE | ~2017-12-31 | HEMODYNAMI ---
PATIENT:HEMANTH JUDD MEDICAL RECORD: [id number] : 76 [facility]atan[id number] ADMISSION DATE: 12/31/17 Generatedon:01/02/201812:25 Patient name: HEMANTH JUDD Patient #: [id number] : 1980 Date of study: 01/02/2018 Page: Of Hemodynamic Procedure Report Patient Data Patient Demographics Procedure consent was obtained First Name: HEMANTH Gender: Male Last Name: DUTCH : 1980 [facility] Initial: J Age: 37 year(s) Patient #: [id number] Race: SSN: [id number] Additional ID: [id number] Contact details Address: [address] [place] [address] [place] State: [place] City: [place] Zip code: [address] Past Medical History Allergies Allergen Reaction Date Comments Reported Other allergy 01/02/2018 Admission Admission Data Admission Date: 12/31/2017 Admission Time: 15:09 Arrival Date: 12/31/2017 Arrival Time: 14:21 Admit Source: Emergency Insurance Payor: Medicaid department Room #: D.CV07 Lab Results Lab Result Date: 01/02/2018 Lab Result Time: 5:55 Biochemistry Name Units Result Min Max BUN mg/dl 11 --(-*--)-- 7 18 Creatinine mg/dl 0.9 --(-*--)-- 0.6 1.3 CBC Name Units Result Min Max Hematocrit % 48.6 --(--*-)-- 42 54 Hemoglobin g/dl 16.8 --(---*)-- 13.5 17.5 Procedure Procedure Types Cath Procedure Diagnostic Procedure Sedation Charges Moderate Sedation up to 15 minutes PCI Procedure Coronary Stent Coronary Stent Additional Procedure Description Procedure Date Procedure Date: 01/02/2018 Procedure Start Time: 12:03 Procedure End Time: 12:21 Procedure Staff Name Function Herman Moseley MD Performing Physician Kelly Rey RT Monitor Roshan Nelson RT Scrub Buffie Torres RN Nurse Procedure Data Cath Procedure Fluoroscopy Diagnostic fluoroscopy Total fluoroscopy Time: 2 time: 2 min min Diagnostic fluoroscopy Total fluoroscopy dose: 356 dose: 356 mGy mGy Contrast Material Contrast Material Type Amount (ml) Isovue 300 38 Entry Location Entry Primary Successful Side Size Upsize Upsize Entry Closure Padron ccessful Closure Location (Fr) 1 (Fr) 2 (Fr) Remarks Device Remarks Radial Right 6 Fr Mechanical artery Short Compression Estimated blood loss: 10 ml Procedure Complications No complications Procedure Medications Medication Administration Route Dosage Oxygen NC 3 l/min Lidocaine 2% added to field 20 Radial Cocktail I.A. 1 syringe (Verapomil 2mg/Nitro 400mcg/Heparin 1500units) 0.9% NaCl I.V. 100 ml/hr Versed I.V. 2 mg Fentanyl I.V. 100 mcg Versed I.V. 2 mg Fentanyl I.V. 50 mcg Heparin Bolus I.V. 4000 units Plavix P.O. 75 mg Hemodynamics Rest Pre Cath Intra NCS Post Cath Vital Signs Time Heart Resp SPO2 etCO2 NIBP (mmHg) Rhythm Pain Status Sedation Rate (ipm) (%) (mmHg) Level (bpm) 11:31:59 80 19 91 21 110/82(95) NSR w/ ST 4 (11) , 10(A) Elevation Distressing 11:36:43 82 25 93 26.3 108/77(91) NSR w/ ST 4 (11) , 10(A) Elevation Distressing 11:41:30 78 27 94 20.3 117/85(103) NSR w/ ST 4 (11) , 10(A) Elevation Distressing 11:46:17 80 20 91 12.7 113/84(99) NSR w/ ST 4 (11) , 10(A) Elevation Distressing 11:51:04 82 23 92 2.2 122/79(99) NSR w/ ST 4 (11) , 10(A) Elevation Distressing 11:55:51 84 20 90 9 120/79(101) NSR w/ ST 4 (11) , 10(A) Elevation Distressing 12:00:37 78 21 91 2.2 119/81(93) NSR w/ ST 4 (11) , 10(A) Elevation Distressing 12:05:26 76 18 90 39 107/77(85) NSR w/ ST 0 (11) , No 9(A) Elevation pain 12:10:11 81 17 91 36.8 104/69(83) NSR w/ ST 0 (11) , No 9(A) Elevation pain 12:14:55 78 27 94 32.3 109/69(88) NSR w/ ST 0 (11) , No 10(A) Elevation pain 12:19:40 41 21 92 3 116/77(90) NSR w/ ST 0 (11) , No 9(A) Elevation pain Medications Time Medication Route Dose Verified Delivered Reason Notes Effectiveness by by 11:50:54 Oxygen NC 3 l/min Herman Buffie used for Pradip Torres RN procedure 11:54:00 Lidocaine 2% added 20ml Herman Sutton for local to vial Pradip Moseley MD anesthetic field 11:54:17 0.9% NaCl I.V. 100 Herman Felixie Per physician ml/hr Pradip Torres RN 11:54:47 Versed I.V. 2 mg Herman Ferreira for sedation Pradip Torres RN 11:54:53 Fentanyl I.V. 100 mcg Herman Ferreira for sedation Pradip Torres RN 12:01:38 Versed I.V. 2 mg Herman Felixie for sedation Pradip Torres RN 12:01:44 Fentanyl I.V. 50 mcg Herman Ferreira for sedation Pradip Torres RN 12:06:07 Radial I.A. 1 Herman Ferreira for Cocktail syringe Pradip Torres RN vasodilation (Verapomil 2mg/Nitro 400mcg/Heparin 1500units) 12:06:25 Heparin Bolus I.V. 4000 Herman Ferreira for verifi ed units Pradip Torres RN anticoagulation with dr moseley 12:18:07 Plavix P.O. 75 mg Herman Ferreira for Pradip Torres RN antiplatelet therapy Procedure Log Time Note 11:02:03 Informed consent obtained and on chart 11:02:08 Admit Source: Emergency department 11:03:32 Diagnostic Cath status Elective 11:03:35 Time tracking: Regular hours (M-F 7:00 - 5:00) 11:03:37 Plan of Care:Hemodynamics will remain stable., Cardiac rhythm will remain stable., Comfort level will be maintained., Respiratory function will remain adequate., Patient/ family verbilizes understanding of procedure., Procedure tolerated without complication., Recovers from procedure without complications.. 11:03:58 H&P Date Dictated: 12/31/2017 Within 30 days and on chart.. 11:11:04 Hanna Torres RN sent for patient. Start room use. 11:15:00 Lab Result : Hemoglobin 16.8 g/dl 11:15:00 Lab Result : Creatinine 0.9 mg/dl 11:15:00 Lab Result : BUN 11 mg/dl 11:15:00 Lab Result : Hematocrit 48.6 % 11:24:13 Patient received from CVICU to CCL 1 Alert and oriented. Tansferred to table in Supine position. 11:24:14 Warm blankets applied, and ashley hugger turned on for patient comfort. 11:24:14 Correct patient and procedure confirmed by team. 11:24:15 ECG and BP/O2 sat monitors applied to patient. 11:24:16 Pre-procedure instructions explained to patient. 11:24:17 Pre-op teaching completed and patient verbalized understanding. 11:24:18 Family in waiting room. 11:24:25 Patient NPO since Midnight. 11:24:31 Patient allergic to Other allergy 11:31:02 Vital chart was started 11:31:10 Rhythm: sinus rhythm 11:31:11 Full Disclosure recording started 11:31:15 Is the patient allergic to Iodine/contrast media? No. 11:31:17 Is patient on blood thinner?Yes 11:31:20 ACC The patient was administered the following blood thiners within the last 24 hours: ACCBrilinta 11:33:27 Patient diabetic? No. 11:33:30 Previous problem with sedation/anesthesia? No ? 11:33:32 Snore? Yes 11:33:33 Sleep apnea? Yes 11:33:34 Deviated septum? No 11:33:35 Opens mouth fully? Yes 11:33:36 Sticks out tongue? Yes 11:33:38 Airway obstruction? No ? 11:33:41 Dentures? No ? 11:33:45 Pre procedure: left dorsailis pedis pulse 1+ Palpable, but thready & weak; easily obliterated 11:33:49 Modified Leander's test Ulnar < 7 seconds 11:34:05 Patient pain scale 0/10 ?. 11:36:06 IV patent on arrival in right femoral vein with 0.9% NaCl at KVO. 11:36:38 Lab results completed and on chart. 11:36:44 Right Radial & Left Groin area was prepped with chlora-prep and draped in sterile fashion 11:36:47 Alarms reviewed by R. N. 11:36:48 Sharps counted by scrub and verified by R.N. 11:48:47 RT FEMORAL VENOUS LINE D/C. 11:48:56 IV started by Hanna Torres RN inleft hand with a 22 gauge IV catheter with 0.9% NaCl at KVO. 11:49:06 STOPCOCK 3-Way Large Bore ([id number]) opened to sterile field. 11:50:54 Oxygen 3 l/min NC was administered by Hanna Torres RN; used for procedure; 11:51:29 RADIAL PULSE AT 80BPM 11:51:30 --------ALL STOP TIME OUT------ 11:51:31 Final Timeout: patient, procedure, and site verified with staff and physician. All members of the team are in agreement. 11:51:33 Right Radial & Left Groin site verified by team. 11:51:36 Physical assessment completed. ASA score P 2 - A patient with mild systemic disease as per Herman Moseley MD. 11:51:42 Sedation plan: IV Moderate Sedation Medication:Versed, Fentanyl 11:54:00 Lidocaine 2% 20ml vial added to field was administered by Herman Moseley MD; for local anesthetic; 11:54:03 Zero performed for pressure channel P1 11:54:17 0.9% NaCl 100 ml/hr I.V. was administered by Hanna Torres RN; Per physician; 11:54:47 Versed 2 mg I.V. was administered by Hanna Torres RN; for sedation; 11:54:53 Fentanyl 100 mcg I.V. was administered by Hanna Torres RN; for sedation; 11:58:17 Zero performed for pressure channel P1 12::38 Versed 2 mg I.V. was administered by Hanna Torres RN; for sedation; 12:01:44 Fentanyl 50 mcg I.V. was administered by Hanna Torres RN; for sedation; 12:03:24 Procedure started. 12:03:36 Local anesthetic to right radial artery with Lidocaine 2% by Herman Moseley MD.INITIAL ACCESS ONLY 12:04:02 Use device set Radial Dx or PCI 12:04:07 ACIST Syringe (92894) opened to sterile field. 12:04:08 Bag Decanter () opened to sterile field. 12:04:12 ACIST Hand Control (00591) opened to sterile field. 12:04:12 ACIST Manifold (22098) opened to sterile field. 12:04:14 Tegaderm 4 x 4 (1626W) opened to sterile field. 12:04:15 Medline Cath Pack ([id number]) opened to sterile field. 12:04:16 DIAGNOSTIC WIRE .035 260cm J wire (148107) opened to sterile field. 12:04:16 MBrace Wrist Support ([id number]) opened to sterile field. 12:04:17 SHEATH 6Fr Prelude Radial ([id number]) opened to sterile field. 12:04:39 A 6 Fr Short sheath was inserted into the Right Radial artery 12:05:06 GUIDE 6FR XB 4.0 catheter ([id number]) opened to sterile field. 12:05:38 6 Fr XB 4 guide catheter was inserted over the wire 12:06:07 Radial Cocktail (Verapomil 2mg/Nitro 400mcg/Heparin 1500units) 1 syringe I.A. was administered by Hanna Torres RN; for vasodilation; 12:06:25 Heparin Bolus 4000 units I.V. was administered by Hanna Torres RN; for anticoagulation; verified with dr moseley 12:07:57 INFLATOR Merit BasixCompak (DX8943) opened to sterile field. 12:07:57 CHOICE PT Extra Support 182cm wire ([id number]) opened to sterile field. 12:07:59 STOPCOCK 3-Way Large Bore (Z10165) opened to sterile field. 12:08:14 CHOICE ES 182 wire advanced. 12:08:38 Wire advanced across lesion. 12:09:54 Place stent Inflation Number: 1 A INTEGRITY RX 3.0 x 18 stent ([id number]) was prepped and advanced across the 1st Ob Josiane. The stent was deployed at 13 TYREL for 0:10 (min:sec). 12:10:09 Stent catheter was removed intact over wire. 12:10:09 Wire removed. 12:10:10 Guide catheter removed. 12:10:16 TR BAND Standard (EVN32PFD) opened to sterile field. 12:10:24 Procedure ended.(Physican Out) 12:11:15 Sheath removed intact; hemostasis achieved with Mechanical Compression to the Right Radial artery. 12:12:00 Fluoroscopy time 02.00 minutes. 12:12:05 Flurop Dose total: 356 12:12:05 Fluoroscopy dose: 356 mGy 12:12:09 Contrast amount:Isovue 300 38ml. 12:12:10 Sharps counted by scrub and verified by R.N. 12:12:12 TR band inflated with 11cc of air. 12:15:13 RT. FEMORAL VENOUS SHEATH PULLED. 12:15:25 Post-op/insertion site Right Femoral vein dressed using a 4 x 4 and Tegaderm. 12:15:30 Post right femoral vein:stable, soft, clean and dry 12:18:07 Plavix 75 mg P.O. was administered by Hanna Torres RN; for antiplatelet therapy; 12:19:25 Post-procedure physical assessment completed. ASA score P 2 - A patient with mild systemic disease as per Herman Moseley MD. 12:19:31 Post procedure rhythm: unchanged. 12:19:35 Estimated blood loss: 10 ml 12:19:38 Post procedure instruction explained to patient.Patient verbalizes understanding. 12:19:39 Patient needs reinforcement of post procedure teaching. 12:21:01 Procedure type changed to Cath procedure, Diagnostic procedure, Sedation Charges, Moderate Sedation up to 15 minutes, PCI procedure, Coronary Stent, Coronary Stent Additional 12:21:31 Procedure and supply charges have been captured, reviewed, submitted and are correct. 12:21:34 Procedure Complication : No complications 12:21:35 Vital chart was stopped 12:21:36 See physician's report for complete and final results. 12:21:38 Report given to CVICU. 12:21:41 Patient transfered to CVICU with Bed. 12:21:43 Procedure ended. 12:21:43 Full Disclosure recording stopped 12:21:45 End room use (Document Last) Intervention Summary Intervention Notes Time ActionType Lesion and Equipment Action# Pressure Duration Attributes Used 12:09:54 Place stent 1st Ob Josiane INTEGRITY RX 1 13 00:10 3.0 x 18 stent ([id number]) Device Usage Item Name Manufacture Quantity Catalog Number Hospital Part Current M inimal Lot# / Charge Number Stock Stock Serial# Code ELIZABETH 3-Way Cook Medical 2 [id number] 065279 0594 665378 5 Large Bore ([id number]) ACIST Syringe Acist 1 55898 313599 531313 654194 2 0 (67753) Medical Systems Inc Bag Decanter Microtek 1 2001S 936929 07256 335263 5 (2001S) Medical Inc. ACIST Hand Acist 1 98734 795752 421403 888959 5 Control (96521) Medical Systems Inc ACIST Manifold Acist 1 35058 407791 619415 785070 5 (10240) Medical Systems Inc Tegaderm 4 x 4 3M 1 1626W 144823 903827 149623 5 (1626W) Medline Cath Cardinal 1 [id number] 590374 57800 835827 5 Pack Health ([id number]) DIAGNOSTIC WIRE St Silvio 1 612397 706502 617563 059908 3 0 .035 260cm J wire (204271) MBrace Wrist Advanced 1 140-0250-00 705509 48721 039877 5 Support Vascular ([id number]) Dynamics SHEATH 6Fr Merit 1 [id number] 238342 947754 843639 5 Prelude Radial Medical ([id number]) GUIDE 6FR XB Cardinal 1 [id number] 794499 730416 774726 2 4.0 catheter Health (98139073) INFLATOR Merit Merit 1 LL6781 637547 975798 808600 1 5 TheBlogTV (PG0212) CHOICE PT Extra Raymond 1 [id number] 089007 905562 792406 5 Support 182cm Scientific wire ([id number]) INTEGRITY RX Medtronic 1 [id number] 188603 756816 201980 5 [id number] 3.0 x 18 stent ([id number]) TR BAND Terumo 1 [id number] 308705 428420 284338 4 0 Standard ([id number]) Signature Audit [place] Stage Time Signature Unsigned Intra-Procedure 01/02/2018 Kelly Rey 12:25:01 PM RT(R) Signatures Monitor : Kelly Rey Signature : RT Date : Time : [place] [address] [address] [place] [address]
--- NOTE | ~2017-12-31 | DS ---
PATIENT:HEMANTH JUDD :[birth year] MEDICAL RECORD: [id number] DISCHARGE SUMMARY ADMISSION DATE: 12/31/17 DISCHARGE DATE: DATE OF DISCHARGE: 01/02/2018 DISCHARGE DIAGNOSES: 1. Acute anterior myocardial infarction. 2. Coronary artery disease. 3. PTCA and stent of LAD and left circumflex this admission. 4. Hyperlipidemia. HOSPITAL COURSE: Mr. Judd presented with acute anterior myocardial infarction. Underwent PTCA and stent of the LAD. He had concomitant disease of the left circumflex. Underwent PTCA and stent of the left circumflex. Discharged home with the addition of aspirin, Plavix, atorvastatin, Coreg to his medical regimen. He will follow up with [facility] in 1 month. TRANSINT:[id number] Voice Confirmation ID: [id number] DOCUMENT ID: [id number] ADELIA BAEZA MD at 1616 CC: [id number] DICTATION DATE: 01/02/188 TERRA COTTA ROOFER HELPER: 01/02/18 1222 ADM IN [place] [address] [place] [address]
[~2017-12-31 14:21] MED LIST: ACETAMINOPHEN500 M1 PO; IBUPROFEN800 MG PO; KEFLEX500 MG PO; MEDROL DOSE PACK4 MG PO
[2017-12-31 14:56] LABS: BASOPHILS 0.2 % (0-2); HEMATOCRIT 48.2 % (42.0-54.0); HEMOGLOBIN 17.6 g/dL (13.5-17.5); IMMATURE GRANULOCYTES 0.2 % (0-5); LYMPHOCYTES 40.4 % (15-50); MCH 32.5 pg (26.0-34.0); MCHC 36.5 g/dL (31.0-37.0); MCV 89.1 fL (80.0-100.0); MEAN PLATELET VOLUME 11.7 fL (7.4-10.4); MONOCYTES 8.3 % (2-11); NEUTROPHILS 48.9 % (40-80); PLATELET COUNT 213 10x3/uL (130-400); RBC 5.41 10x6/uL (4.20-6.10); RDW 12.8 % (11.5-14.5); WBC 12.5 10x3/uL (4.8-10.8)
[2017-12-31 15:10] LABS: APTT 31.4 SECONDS (22.8-39.4); INR 0.96 (0.85-1.17); PROTIME 12.4 SECONDS (11.6-15.0)
[2017-12-31 15:11] LABS: D-DIMER-QUANTITATIVE 0.49 ug/mLFEU (0.20-0.54)
[2017-12-31 15:25] LABS: ALBUMIN 3.5 g/dL (3.4-5.0); ALKALINE PHOSPHATASE 112 U/L (46-116); BILIRUBIN - TOTAL 2.17 mg/dL (0.2-1.3); CALCIUM 8.4 mg/dL (8.5-10.1); CARBON DIOXIDE 22.3 mmol/L (21.0-32.0); CHLORIDE - SERUM 106 mmol/L (98-107); CKMB 2.7 U/L (0.0-3.6); CREATINE KINASE 452 UL (21-232); POTASSIUM - SERUM 4.5 mmol/L (3.5-5.1); PRO BNP 37 pg/mL (0-125); PROTEIN - SERUM 7.6 g/dL (6.4-8.2); SODIUM 141 mmol/L (136-145); UREA NITROGEN 11 mg/dL (7-18); eGFR NON AFRICAN AMERICAN 88 mL/min (90-120)
[2017-12-31 15:32] LABS: ALT (SGPT) 141 U/L (10-68); CALC OSMOLALITY 281 mosm/kg (275-300); GLUCOSE 132 mg/dL (74-106); TROPONIN-I < 0.017 ng/mL (0.000-0.060)
[2018-01-01] VITALS (15 sets, daily range): BP systolic 101–128; BP diastolic 47–85; BMI 40.1
[2018-01-01 07:10] LABS: CALC OSMOLALITY 278 mosm/kg (275-300); CALCIUM 7.9 mg/dL (8.5-10.1); CARBON DIOXIDE 24.1 mmol/L (21.0-32.0); CHLORIDE - SERUM 106 mmol/L (98-107); CREATININE - SERUM 0.9 mg/dL (0.6-1.3); GLUCOSE 137 mg/dL (74-106); POTASSIUM - SERUM 4.2 mmol/L (3.5-5.1); SODIUM 139 mmol/L (136-145); UREA NITROGEN 11 mg/dL (7-18); eGFR NON AFRICAN AMERICAN > 90 mL/min (90-120)
[2018-01-01 07:44] LABS: TROPONIN-I 137.768 ng/mL (0.000-0.060)
[2018-01-01 13:14] LABS: BASOPHILS 0.1 % (0-2); EOSINOPHILS 0.3 % (0-7); HEMATOCRIT 48.6 % (42.0-54.0); HEMOGLOBIN 16.8 g/dL (13.5-17.5); IMMATURE GRANULOCYTES 0.3 % (0-5); LYMPHOCYTES 11.6 % (15-50); MCH 32.1 pg (26.0-34.0); MCHC 34.6 g/dL (31.0-37.0); MONOCYTES 5.6 % (2-11); NEUTROPHILS 82.1 % (40-80); PLATELET COUNT 202 10x3/uL (130-400); RBC 5.24 10x6/uL (4.20-6.10); RDW 13.5 % (11.5-14.5)
[2018-01-01 13:15] LABS: MCV 92.7 fL (80.0-100.0); WBC 18.2 10x3/uL (4.8-10.8)
[2018-01-02] VITALS (15 sets, daily range): BP systolic 90–115; BP diastolic 59–77; Ht 195.6 cm; Wt 154.8 kg
[2018-01-02 06:37] LABS: CHOL - HDL RATIO 5.5 ratio (2.3-4.9); LDL-HDL RATIO 3.4 ratio (1.5-3.5)
[2018-01-03] VITALS (14 sets, daily range): BP systolic 94–128; BP diastolic 56–75
[2018-01-03 03:25] LABS: BASOPHILS 0.3 % (0-2); EOSINOPHILS 2.1 % (0-7); HEMATOCRIT 43.5 % (42.0-54.0); HEMOGLOBIN 14.9 g/dL (13.5-17.5); IMMATURE GRANULOCYTES 0.3 % (0-5); LYMPHOCYTES 28.3 % (15-50); MCH 31.6 pg (26.0-34.0); MCHC 34.3 g/dL (31.0-37.0); MCV 92.4 fL (80.0-100.0); MEAN PLATELET VOLUME 11.1 fL (7.4-10.4); MONOCYTES 9.4 % (2-11); NEUTROPHILS 59.6 % (40-80); PLATELET COUNT 179 10x3/uL (130-400); RBC 4.71 10x6/uL (4.20-6.10); RDW 13.2 % (11.5-14.5)
[2018-01-03 03:26] LABS: WBC 11.7 10x3/uL (4.8-10.8)
[2018-01-03 03:34] LABS: CALC OSMOLALITY 272 mosm/kg (275-300); CALCIUM 8.2 mg/dL (8.5-10.1); CARBON DIOXIDE 24.8 mmol/L (21.0-32.0); CHLORIDE - SERUM 103 mmol/L (98-107); CREATININE - SERUM 0.8 mg/dL (0.6-1.3); GLUCOSE 115 mg/dL (74-106); POTASSIUM - SERUM 4.1 mmol/L (3.5-5.1); SODIUM 136 mmol/L (136-145); UREA NITROGEN 12 mg/dL (7-18); eGFR NON AFRICAN AMERICAN > 90 mL/min (90-120)
[2018-01-04] VITALS (15 sets, daily range): BP systolic 90–120; BP diastolic 47–79
[2018-01-04 03:19] LABS: BASOPHILS 0.4 % (0-2); EOSINOPHILS 2.9 % (0-7); HEMATOCRIT 42.3 % (42.0-54.0); HEMOGLOBIN 14.6 g/dL (13.5-17.5); IMMATURE GRANULOCYTES 0.5 % (0-5); LYMPHOCYTES 26.2 % (15-50); MCH 31.7 pg (26.0-34.0); MCHC 34.5 g/dL (31.0-37.0); MEAN PLATELET VOLUME 11.2 fL (7.4-10.4); MONOCYTES 8.2 % (2-11); NEUTROPHILS 61.8 % (40-80); PLATELET COUNT 176 10x3/uL (130-400); WBC 10.3 10x3/uL (4.8-10.8)
[2018-01-04 03:27] LABS: CALC OSMOLALITY 270 mosm/kg (275-300); CALCIUM 8.2 mg/dL (8.5-10.1); CARBON DIOXIDE 26.2 mmol/L (21.0-32.0); CHLORIDE - SERUM 102 mmol/L (98-107); CREATININE - SERUM 0.9 mg/dL (0.6-1.3); GLUCOSE 107 mg/dL (74-106); POTASSIUM - SERUM 4.1 mmol/L (3.5-5.1); SODIUM 136 mmol/L (136-145); UREA NITROGEN 11 mg/dL (7-18); eGFR NON AFRICAN AMERICAN > 90 mL/min (90-120)
[2018-01-05] VITALS (9 sets, daily range): BP systolic 95–113; BP diastolic 53–75
[2018-01-05 04:57] LABS: BASOPHILS 0.3 % (0-2); EOSINOPHILS 2.6 % (0-7); HEMOGLOBIN 14.7 g/dL (13.5-17.5); IMMATURE GRANULOCYTES 0.4 % (0-5); LYMPHOCYTES 25.2 % (15-50); MCH 31.4 pg (26.0-34.0); MCHC 34.2 g/dL (31.0-37.0); MCV 91.9 fL (80.0-100.0); MEAN PLATELET VOLUME 11.6 fL (7.4-10.4); MONOCYTES 7.2 % (2-11); NEUTROPHILS 64.3 % (40-80); RBC 4.68 10x6/uL (4.20-6.10); RDW 13.1 % (11.5-14.5); WBC 9.6 10x3/uL (4.8-10.8)
[2018-01-05 05:03] LABS: CALC OSMOLALITY 274 mosm/kg (275-300); CALCIUM 8.3 mg/dL (8.5-10.1); CARBON DIOXIDE 26.1 mmol/L (21.0-32.0); CHLORIDE - SERUM 103 mmol/L (98-107); CREATININE - SERUM 0.9 mg/dL (0.6-1.3); GLUCOSE 92 mg/dL (74-106); POTASSIUM - SERUM 4.1 mmol/L (3.5-5.1); SODIUM 138 mmol/L (136-145); UREA NITROGEN 11 mg/dL (7-18); eGFR NON AFRICAN AMERICAN > 90 mL/min (90-120)
[2018-01-05 05:07] LABS: PLATELET COUNT 225 10x3/uL (130-400)
[2018-01-05] MEDS ORDERED: LIPITOR20 MG PO (13:38)
[2018-01-05] MEDS ORDERED: COREG 3.1253.125 MG PO (13:38)
[2018-01-05] MEDS ORDERED: PLAVIX75 MG PO (13:38)
[2018-01-05] MEDS ORDERED: LEVAQUIN750 MG PO ×2 (13:47→13:51)
[2018-01-05] MEDS ORDERED: LEVAQUIN250 MG PO (13:51)
[2018-01-05] MEDS ORDERED: NICODERM TRANSDERM (13:55)
[2018-01-05] MEDS ORDERED: BAYER CHEWABLE81 MG PO (14:37)
[2018-01-14 16:18] LABS: ANCA - ANTIMYELOPEROXIDASE <9.0 U/mL (0.0-9.0); ANCA - ANTIPROTEINASE 3 <3.5 U/mL (0.0-3.5); ANCA - ATYPICAL <1:20 titer (Neg:<1:20); ANCA - CYTOPLASMIC <1:20 titer (Neg:<1:20); ANCA - PERINUCLEAR <1:20 titer (Neg:<1:20)
== END 2018-01-05 14:40 | disposition home or self-care (01) | DRG 248 ==
LOC: D.ER 14:21 → D.CVICU 15:09 → D.EDHOLD 15:09 → D.CVICU 16:30
PROVIDERS: Emergency Medicine; Internal Medicine Cardiovascular Disease; Internal Medicine Pulmonary Disease
PROC: B2111ZZ Fluoroscopy of Multiple Coronary Arteries using Low Osmolar Contrast (ICD-10-PCS; 2017-12-31)
PROC: B2151ZZ Fluoroscopy of Left Heart using Low Osmolar Contrast (ICD-10-PCS; 2017-12-31)
PROC: 4A023N7 Measurement of Cardiac Sampling and Pressure, Left Heart, Percutaneous Approach (ICD-10-PCS; 2017-12-31)
PROC: 02703ZZ Dilation of Coronary Artery, One Artery, Percutaneous Approach (ICD-10-PCS; principal; 2017-12-31 14:45)
PROC: 02703DZ Dilation of Coronary Artery, One Artery with Intraluminal Device, Percutaneous Approach (ICD-10-PCS; 2017-12-31 14:45)
PROC: 02703DZ Dilation of Coronary Artery, One Artery with Intraluminal Device, Percutaneous Approach (ICD-10-PCS; 2018-01-02)
DX: I21.09 ST elevation (STEMI) myocardial infarction involving other coronary artery of anterior wall (principal); J18.9 Pneumonia, unspecified organism; I50.21 Acute systolic (congestive) heart failure; J81.1 Chronic pulmonary edema; I47.2 Ventricular tachycardia; R04.2 Hemoptysis; I25.10 Atherosclerotic heart disease of native coronary artery without angina pectoris; E78.5 Hyperlipidemia, unspecified; D72.829 Elevated white blood cell count, unspecified; Y95 Nosocomial condition; Z86.73 Personal history of transient ischemic attack (TIA), and cerebral infarction without residual deficits; I27.20 Pulmonary hypertension, unspecified; K76.0 Fatty (change of) liver, not elsewhere classified; R16.1 Splenomegaly, not elsewhere classified; E78.00 Pure hypercholesterolemia, unspecified; F17.200 Nicotine dependence, unspecified, uncomplicated; I11.0 Hypertensive heart disease with heart failure; E11.9 Type 2 diabetes mellitus without complications

== ENCOUNTER 2018-01-06 02:59 | Inpatient (IN) | payer MEDICAID ==
[~2018-01-06] VITALS: Ht 195.6 cm; Wt 149.8 kg
[~2018-01-06 02:59] MED LIST changes: +BAYER CHEWABLE81 MG PO; +COREG 3.1253.125 MG PO; +LEVAQUIN250 MG PO; +LEVAQUIN750 MG PO; +LIPITOR20 MG PO; +NICODERM TRANSDERM; +PLAVIX75 MG PO
[2018-01-06 03:46] LABS: BASOPHILS 0.2 % (0-2); EOSINOPHILS 2.6 % (0-7); HEMATOCRIT 44.2 % (42.0-54.0); HEMOGLOBIN 15.7 g/dL (13.5-17.5); IMMATURE GRANULOCYTES 0.2 % (0-5); LYMPHOCYTES 16.7 % (15-50); MCH 32.1 pg (26.0-34.0); MCHC 35.5 g/dL (31.0-37.0); MCV 90.4 fL (80.0-100.0); MEAN PLATELET VOLUME 10.8 fL (7.4-10.4); MONOCYTES 7.3 % (2-11); PLATELET COUNT 244 10x3/uL (130-400); RBC 4.89 10x6/uL (4.20-6.10); RDW 12.8 % (11.5-14.5)
[2018-01-06 03:51] LABS: APTT 30.3 SECONDS (22.8-39.4); INR 1.07 (0.85-1.17); PROTIME 13.5 SECONDS (11.6-15.0)
[2018-01-06 03:52] LABS: D-DIMER-QUANTITATIVE 1.51 ug/mLFEU (0.20-0.54)
[2018-01-06 03:53] LABS: WBC 12.1 10x3/uL (4.8-10.8)
[2018-01-06 03:58] LABS: ALBUMIN 3.1 g/dL (3.4-5.0); ALKALINE PHOSPHATASE 77 U/L (46-116); ALT (SGPT) 115 U/L (10-68); BILIRUBIN - TOTAL 1.15 mg/dL (0.2-1.3); CALC OSMOLALITY 274 mosm/kg (275-300); CALCIUM 8.7 mg/dL (8.5-10.1); CHLORIDE - SERUM 102 mmol/L (98-107); CREATININE - SERUM 0.9 mg/dL (0.6-1.3); GLUCOSE 103 mg/dL (74-106); POTASSIUM - SERUM 4.2 mmol/L (3.5-5.1); SODIUM 137 mmol/L (136-145); eGFR NON AFRICAN AMERICAN > 90 mL/min (90-120)
[2018-01-06 03:59] LABS: UREA NITROGEN 15 mg/dL (7-18)
[2018-01-06 04:15] LABS: CKMB 4.4 U/L (0.0-3.6); CREATINE KINASE 642 UL (21-232); PRO BNP 2833 pg/mL (0-125)
[2018-01-06 04:18] LABS: TROPONIN-I 6.512 ng/mL (0.000-0.060)
[2018-01-06 04:43] VITALS: BP 125/74
[2018-01-06 05:46] VITALS: BP 111/64
[2018-01-06 07:37] LABS: ERYTHROCYTE SEDIMENTATION RATE 4 mm/hr (0-15)
[2018-01-06 08:21] VITALS: BP 111/64
[2018-01-06 11:23] VITALS: BP 119/69
[2018-01-06 15:18] LABS: MAGNESIUM - SERUM 1.8 mg/dL (1.8-2.4); T4 THYROXIN - FREE 1.12 ng/dL (0.76-1.46); THYROID STIMULATING HORMONE 2.32 uIU/mL (0.36-3.74)
[2018-01-06 15:26] LABS: APPEARANCE CLEAR (CLEAR); BILIRUBIN NEGATIVE (NEGATIVE); COLOR YELLOW (YELLOW); GLUCOSE NEGATIVE (NEGATIVE); KETONE NEGATIVE (NEGATIVE); NITRITE NEGATIVE (NEGATIVE); PROTEIN NEGATIVE (NEGATIVE); UROBILINOGEN NORMAL (NORMAL)
[2018-01-06 15:39] VITALS: BP 101/60
[2018-01-06 23:50] VITALS: BP 98/58
[2018-01-07 06:28] LABS: BASOPHILS 0.4 % (0-2); EOSINOPHILS 3.2 % (0-7); HEMOGLOBIN 15.5 g/dL (13.5-17.5); IMMATURE GRANULOCYTES 0.3 % (0-5); LYMPHOCYTES 25.5 % (15-50); MCH 31.6 pg (26.0-34.0); MCHC 34.4 g/dL (31.0-37.0); MCV 91.8 fL (80.0-100.0); MEAN PLATELET VOLUME 11.3 fL (7.4-10.4); MONOCYTES 8.3 % (2-11); NEUTROPHILS 62.3 % (40-80); PLATELET COUNT 246 10x3/uL (130-400); RDW 13.3 % (11.5-14.5)
[2018-01-07 07:06] LABS: CALC OSMOLALITY 272 mosm/kg (275-300); CALCIUM 8.7 mg/dL (8.5-10.1); CARBON DIOXIDE 26.9 mmol/L (21.0-32.0); CHLORIDE - SERUM 100 mmol/L (98-107); GLUCOSE 84 mg/dL (74-106); MAGNESIUM - SERUM 2.3 mg/dL (1.8-2.4); POTASSIUM - SERUM 4.3 mmol/L (3.5-5.1); PRO BNP 1625 pg/mL (0-125); SODIUM 137 mmol/L (136-145); UREA NITROGEN 13 mg/dL (7-18); eGFR NON AFRICAN AMERICAN 88 mL/min (90-120)
[2018-01-07 07:09] VITALS: BP 96/57
[2018-01-07 09:04] VITALS: BP 94/49
[2018-01-07 11:26] VITALS: BP 102/51
[2018-01-07 12:47] VITALS: Ht 195.6 cm; Wt 149.8 kg
[2018-01-07 15:47] VITALS: BP 110/63
[2018-01-07 22:05] VITALS: BP 91/45
[2018-01-08 05:21] LABS: BASOPHILS 0.5 % (0-2); EOSINOPHILS 3.1 % (0-7); HEMATOCRIT 43.5 % (42.0-54.0); HEMOGLOBIN 14.9 g/dL (13.5-17.5); IMMATURE GRANULOCYTES 0.2 % (0-5); LYMPHOCYTES 31.3 % (15-50); MCH 31.6 pg (26.0-34.0); MCHC 34.3 g/dL (31.0-37.0); MCV 92.4 fL (80.0-100.0); MEAN PLATELET VOLUME 11.4 fL (7.4-10.4); MONOCYTES 8.7 % (2-11); NEUTROPHILS 56.2 % (40-80); PLATELET COUNT 242 10x3/uL (130-400); RBC 4.71 10x6/uL (4.20-6.10); WBC 8.8 10x3/uL (4.8-10.8)
[2018-01-08 05:49] LABS: CALC OSMOLALITY 271 mosm/kg (275-300); CALCIUM 8.6 mg/dL (8.5-10.1); CARBON DIOXIDE 26.6 mmol/L (21.0-32.0); CHLORIDE - SERUM 102 mmol/L (98-107); GLUCOSE 87 mg/dL (74-106); MAGNESIUM - SERUM 2.1 mg/dL (1.8-2.4); POTASSIUM - SERUM 4.4 mmol/L (3.5-5.1); SODIUM 136 mmol/L (136-145); UREA NITROGEN 16 mg/dL (7-18); eGFR NON AFRICAN AMERICAN 88 mL/min (90-120)
[2018-01-08 06:16] VITALS: BP 91/60
[2018-01-08 08:39] VITALS: BP 94/66
[2018-01-08 10:47] VITALS: BP 97/64
[2018-01-08 15:37] VITALS: BP 107/72
[2018-01-08 21:18] VITALS: BP 116/73
[2018-01-09 05:02] LABS: BASOPHILS 0.5 % (0-2); EOSINOPHILS 2.9 % (0-7); HEMATOCRIT 44.5 % (42.0-54.0); HEMOGLOBIN 15.8 g/dL (13.5-17.5); IMMATURE GRANULOCYTES 0.3 % (0-5); LYMPHOCYTES 27.5 % (15-50); MCH 32.4 pg (26.0-34.0); MCHC 35.5 g/dL (31.0-37.0); MCV 91.2 fL (80.0-100.0); MEAN PLATELET VOLUME 10.7 fL (7.4-10.4); MONOCYTES 9.4 % (2-11); NEUTROPHILS 59.4 % (40-80); PLATELET COUNT 238 10x3/uL (130-400); RBC 4.88 10x6/uL (4.20-6.10); RDW 12.7 % (11.5-14.5); WBC 9.3 10x3/uL (4.8-10.8)
[2018-01-09 05:22] LABS: CALCIUM 8.7 mg/dL (8.5-10.1); CARBON DIOXIDE 26.1 mmol/L (21.0-32.0); CHLORIDE - SERUM 103 mmol/L (98-107); CREATININE - SERUM 1.1 mg/dL (0.6-1.3); POTASSIUM - SERUM 4.5 mmol/L (3.5-5.1); SODIUM 136 mmol/L (136-145); eGFR NON AFRICAN AMERICAN 79 mL/min (90-120)
[2018-01-09 05:35] LABS: CALC OSMOLALITY 272 mosm/kg (275-300); GLUCOSE 86 mg/dL (74-106); UREA NITROGEN 17 mg/dL (7-18)
[2018-01-09 05:42] VITALS: BP 107/73
[2018-01-09 11:50] VITALS: BP 104/67
[2018-01-09] MEDS ORDERED: ATROVENT 0.02%2.5 ML UPD ×2 (11:56→15:21)
[2018-01-09] MEDS ORDERED: LISINOPRIL2.5 MG PO (11:57)
[2018-01-09] MEDS ORDERED: ALDACTONE25 MG PO (11:57)
[2018-01-09] MEDS ORDERED: LASIX40 MG PO (11:59)
[2018-01-09] MEDS ORDERED: IBUPROFEN600 MG PO (11:59)
[2018-01-09] MEDS ORDERED: PROTONIX40 MG PO (12:00)
[2018-01-09] MEDS ORDERED: PULMICORT0.5 MG/21 UPD (12:00)
== END 2018-01-09 16:54 | disposition home or self-care (01) | DRG 292 ==
LOC: D.ER 02:59 → D.M2 05:46
PROVIDERS: Family Medicine; Internal Medicine Nephrology; Internal Medicine Pulmonary Disease
DX: I11.0 Hypertensive heart disease with heart failure (principal); J44.1 Chronic obstructive pulmonary disease with (acute) exacerbation; F17.213 Nicotine dependence, cigarettes, with withdrawal; I25.10 Atherosclerotic heart disease of native coronary artery without angina pectoris; I50.23 Acute on chronic systolic (congestive) heart failure; I27.20 Pulmonary hypertension, unspecified; I08.1 Rheumatic disorders of both mitral and tricuspid valves; E04.1 Nontoxic single thyroid nodule; K76.0 Fatty (change of) liver, not elsewhere classified; R16.1 Splenomegaly, not elsewhere classified; E78.00 Pure hypercholesterolemia, unspecified; Z86.73 Personal history of transient ischemic attack (TIA), and cerebral infarction without residual deficits

== ENCOUNTER 2018-03-22 01:40 | Observation (INO) | payer MEDICAID ==
[~2018-03-22] VITALS: Ht 195.6 cm; Wt 104.5 kg
--- NOTE | ~2018-03-22 | HP ---
PATIENT: HEMANTH JUDD MEDICAL RECORD: [id number] ACCOUNT: [id number] LOCATION:[address] : [birth year] ADMISSION DATE: 03/22/18 PCP: ADELIA BAEZA MD HISTORY AND PHYSICAL EXAMINATION ADMITTING DIAGNOSES: 1. Angina. 2. Coronary artery disease. 3. Percutaneous transluminal coronary angioplasty stent left anterior descending and circumflex in December with concomitant disease right coronary artery. 4. Hypertension. 5. Hyperlipidemia. HISTORY OF PRESENT ILLNESS: Mr. Judd presents with chest discomfort. It is very similar to that of his heart attack, just not as severe. His troponin is normal. His EKG is normal. He has not had any further chest pain. PHYSICAL EXAMINATION: GENERAL APPEARANCE: Well-nourished, well-developed, appears stated age. Level of distress, comfortable. PSYCHIATRIC: Mental status, alert, normal affect. Orientation, oriented to time, place and person. EYES: Lids and conjunctiva, noninjected. No discharge, no pallor. ENT: Lips, teeth, gums, normal dentition. Oropharynx, no cyanosis, no pallor. NECK: Carotid arteries, bilateral normal upstroke, no bruits, no thrills. JUGULAR VEINS: No jugular venous pressure or distention. CERVICAL LYMPH NODES: Nontender, nonenlarged. THYROID: Not enlarged. Nontender. No nodules. LUNGS: Respiratory effort, unlabored. CHEST: Normal curvature. No thoracic deformity. No chest wall tenderness. Percussion, resonant. Auscultation, clear. No wheezes, no rales, no rhonchi. CARDIOVASCULAR: Precordial exam, nondisplaced. No heaves or pericardial thrills. Rate and rhythm, regular. Heart sounds, normal S1, normal S2. No S3, no gallop, no rub. Systolic murmur, not heard. Diastolic murmur, not heard. EXTREMITIES: No cyanosis, no edema. Peripheral pulses, full and equal in all extremities, except as noted. No bruits appreciated. ABDOMEN: Soft, nondistended. Normal aorta. No bruit. Nontender. No masses. Liver, nontender, no hepatomegaly. Spleen, nontender, no splenomegaly. MUSCULOSKELETAL: No joint tenderness. No joint swelling. No erythema. NEUROLOGICAL: Normal gait, normal strength, normal tone. SKIN: Warm and dry. OVERALL IMPRESSION: Chest pain compatible with angina. I have reviewed the cath film. He underwent successful percutaneous transluminal coronary angioplasty stent of the left anterior descending and circumflex. He did have disease of the right coronary artery. He wants to go home and come back as an outpatient for this. He has had no further chest pain. He is stable at this point. Troponin is normal. We will be able to discharge him and proceed with outpatient coronary angiography in the near future, most likely transcatheter revascularization of the right coronary artery if the left system is patent. TRANSINT:[id number] Voice Confirmation ID: [id number] DOCUMENT ID: [id number] HISTORY AND PHYSICAL [id number] HEMANTH JUDD, ADELIA LEMOS at 1108 CC: [id number] DICTATION DATE: 03/22/18 1342 RAILROAD AUDITOR: 03/22/18 1357 DIS IN 03/22/18 [facility] [address] [place] [address]
--- NOTE | ~2018-03-22 | DS ---
PATIENT:HEMANTH JUDD :[birth year] MEDICAL RECORD: [id number] DISCHARGE SUMMARY ADMISSION DATE: 03/22/18 DISCHARGE DATE: 03/22/18 DISCHARGE DIAGNOSES: 1. Angina. 2. Coronary artery disease. 3. Hypertension. 4. Hyperlipidemia. HOSPITAL COURSE: Mr. Judd presented with anginal symptomatology; however, ruled out for myocardial infarction. He most likely has significant disease of the RCA. We will plan for outpatient cardiac catheterization in the near future and transcatheter revascularization of the left system if needed and RCA. TRANSINT:[id number] Voice Confirmation ID: [id number] DOCUMENT ID: [id number] ADELIA BAEZA MD at 1108 CC: [id number] DICTATION DATE: 03/22/18 1343 MOLD MOVER: 03/22/18 2359 DIS IN 03/22/18 [place] [address] [place] [address]
--- NOTE | ~2018-03-22 | MORECARE ---
CASE MANAGEMENT DISCHARGE SUMMARY PATIENT: HEMANTH JUDD UNIT: [id number] ADM DATE: 03/22/18 AGE: 37 : [birth year] SEX: M ROOM/BED: D.2121 AUTHOR: MALLIKA GALEAS PHYSICIAN: REFERRING PHYSICIAN: ADELIA BAEZA MD DATE OF SERVICE: 03/23/18 Discharge Plan Patient Name: [facility]EMANTH JUDD [facility] [facility] 1980 Planned Disposition: Home Anticipated Discharge Date: 03/22/18 Discharge Date: 03/22/2018 Expected LOS: 1 Initial Reviewer: [email or web address] Initial Review Date: 03/23/2018 Generated: 03/23/18 6:08 pm Patient Name: HEMANTH JUDD Page 77449 at 1708 All edits/amendments must be made on the electronic document DICTATION DATE: 03/23/181706 HEDGE FUND TRADER: JORGE 03/23/181706 RPT#: [id number] DC DATE:03/22/18 STATUS: DIS IN [facility] [address] [place] [address] END OF REPORT
[~2018-03-22 01:40] MED LIST changes: +ALDACTONE25 MG PO; +ATROVENT 0.02%2.5 ML UPD; +IBUPROFEN600 MG PO; +LASIX40 MG PO; +LISINOPRIL2.5 MG PO; +PROTONIX40 MG PO; +PULMICORT0.5 MG/21 UPD
[2018-03-22 02:03] LABS: BASOPHILS 0.3 % (0-2); EOSINOPHILS 2.1 % (0-7); HEMATOCRIT 47.1 % (42.0-54.0); HEMOGLOBIN 16.4 g/dL (13.5-17.5); IMMATURE GRANULOCYTES 0.3 % (0-5); LYMPHOCYTES 33.3 % (15-50); MCH 31.2 pg (26.0-34.0); MCHC 34.8 g/dL (31.0-37.0); MCV 89.5 fL (80.0-100.0); MEAN PLATELET VOLUME 10.6 fL (7.4-10.4); MONOCYTES 9.1 % (2-11); NEUTROPHILS 54.9 % (40-80); PLATELET COUNT 206 10x3/uL (130-400); RBC 5.26 10x6/uL (4.20-6.10); RDW 12.6 % (11.5-14.5)
[2018-03-22 02:10] LABS: INR 1.05 (0.85-1.17); PROTIME 13.2 SECONDS (11.6-15.0)
[2018-03-22 02:16] LABS: ALBUMIN 3.8 g/dL (3.4-5.0); ALKALINE PHOSPHATASE 116 U/L (46-116); ALT (SGPT) 83 U/L (10-68); BILIRUBIN - TOTAL 0.92 mg/dL (0.2-1.3); CALC OSMOLALITY 274 mosm/kg (275-300); CALCIUM 8.7 mg/dL (8.5-10.1); CARBON DIOXIDE 26.9 mmol/L (21.0-32.0); CHLORIDE - SERUM 100 mmol/L (98-107); CREATININE - SERUM 0.9 mg/dL (0.6-1.3); POTASSIUM - SERUM 3.9 mmol/L (3.5-5.1); PROTEIN - SERUM 8.1 g/dL (6.4-8.2); SODIUM 136 mmol/L (136-145); UREA NITROGEN 15 mg/dL (7-18); eGFR NON AFRICAN AMERICAN > 90 mL/min (90-120)
[2018-03-22 02:20] LABS: GLUCOSE 142 mg/dL (74-106)
[2018-03-22 02:25] LABS: CKMB 1.7 U/L (0.0-3.6); CREATINE KINASE 149 UL (21-232); MAGNESIUM - SERUM 1.8 mg/dL (1.8-2.4); TROPONIN-I < 0.017 ng/mL (0.000-0.060)
[2018-03-22 02:45] VITALS: BP 112/79
[2018-03-22 03:55] VITALS: BP 100/59; Ht 195.6 cm; Wt 104.5 kg
[2018-03-22 06:42] LABS: CREATINE KINASE 143 UL (21-232); TROPONIN-I < 0.017 ng/mL (0.000-0.060)
[2018-03-22 08:38] VITALS: BP 117/78
[2018-03-23] MEDS ORDERED: PLAVIX75 MG PO (10:59)
== END 2018-03-22 14:37 | disposition home or self-care (01) ==
LOC: D.ER 01:40 → D.M2 02:52 → OBSVTIME 02:52 → D.M2 14:37
PROVIDERS: Emergency Medicine
DX: I25.119 Atherosclerotic heart disease of native coronary artery with unspecified angina pectoris (principal); Z95.5 Presence of coronary angioplasty implant and graft; I10 Essential (primary) hypertension

== ENCOUNTER 2018-03-23 09:03 | Outpatient (CLI) | payer MEDICAID ==
[~2018-03-23] VITALS: Ht 195.6 cm; Wt 150.0 kg
--- NOTE | ~2018-03-23 | HEMODYNAMI ---
PATIENT:HEMANTH JUDD MEDICAL RECORD: [id number] : 76 LOCATION:[facility] ADMISSION DATE: 03/23/18 Generatedon:03/23/201810:56 Patient name: HEMANTH JUDD Patient #: [id number] : 1980 Date of study: 03/23/2018 Page: Of Hemodynamic Procedure Report Patient Data Patient Demographics Procedure consent was obtained First Name: HEMANTH Gender: Male Last Name: DUTCH : 1980 Middle Initial: J Age: 37 year(s) Patient #: [id number] Race: SSN: [id number] Additional ID: [id number] Contact details Address: [address] [place] [address] State: [place] City: [facility] Zip code: [address] Past Medical History Allergies Allergen Reaction Date Comments Reported Other allergy 01/02/2018 Admission Admission Data Admission Date: 03/23/2018 Admission Time: 9:03 Weight (lbs.): 330.7 Weight (kg.): 150 Lab Results Lab Result Date: 03/23/2018 Lab Result Time: 0:00 Biochemistry Name Units Result Min Max BUN mg/dl 16 --(---*)-- 7 18 Creatinine mg/dl 0.8 --(-*--)-- 0.6 1.3 CBC Name Units Result Min Max Hemoglobin g/dl 15.9 --(--*-)-- 13.5 17.5 Platelets 10^3/l 196 --(*---)-- 130 400 Procedure Procedure Types Cath Procedure Diagnostic Procedure C [facility] w/Coronaries PCI Procedure Coronary Stent Coronary Stent Initial Procedure Description Procedure Date Procedure Date: 03/23/2018 Procedure Start Time: 10:34 Procedure End Time: 10:52 Procedure Staff Name Function Herman Moseley MD Performing Physician Sundeep Rodriguez RT Monitor Lisa Watson RN Nurse Carl Red RT Scrub Spike Stern RT Java Spring Developer Procedure Data Cath Procedure Fluoroscopy Diagnostic fluoroscopy Total fluoroscopy Time: 5.7 time: 5.7 min min Diagnostic fluoroscopy Total fluoroscopy dose: dose: 1312 mGy 1312 mGy Contrast Material Contrast Material Type Amount (ml) Isovue 300 110 Entry Location Entry Primary Successful Side Size Upsize Upsize Entry Closure Padron ccessful Closure Location (Fr) 1 (Fr) 2 (Fr) Remarks Device Remarks Radial Right 6 Fr Mechanical artery Short Compression Estimated blood loss: 10 ml Diagnostic catheters Device Type Used For End Catheter Placement DIAGNOSTIC Hurley 110cm 5 Procedure Fr catheter ([id number]) Procedure Complications No complications Procedure Medications Medication Administration Route Dosage 0.9% NaCl I.V. 100 ml/hr Oxygen etCO2 Nasal cannula 2 l/min Lidocaine 2% added to field 20 Heparin Flush Bag added to field 2 bags (1000units/500ml NS) Radial Cocktail added to field 1 syringe (Verapomil 2mg/Nitro 400mcg/Heparin 1500units) Versed I.V. 2 mg Fentanyl I.V. 100 mcg Heparin Bolus I.V. 4000 units Versed I.V. 2 mg Fentanyl I.V. 100 mcg Versed I.V. 2 mg Fentanyl I.V. 50 mcg Versed I.V. 1 mg Plavix P.O. 75 mg Hemodynamics Rest HGB: 15.9 (g/dl) Heart Rate: 86 (bpm) Pressure Samples Time Site Value (mmHg) Purpose Heart Use Rate(bpm) 10:38 AO 91/69(77) Snapshot 96 Snapshots Pre Cath Intra NCS Post Cath Vital Signs Time Heart Resp SPO2 etCO2 NIBP Rhythm Pain Sedation Rate (ipm) (%) (mmHg) (mmHg) Status Level (bpm) 10:20:37 90 22 99 36.2 103/74(89) NSR 0 (11) 10(A) , No pain 10:24:57 97 16 100 36.4 110/76(94) NSR 0 (11) 10(A) , No pain 10:29:22 93 14 97 32.6 103/66(85) NSR 0 (11) 10(A) , No pain 10:33:48 98 20 97 34.1 91/54(77) NSR 0 (11) 10(A) , No pain 10:38:08 98 11 98 31 93/51(74) NSR 0 (11) 10(A) , No pain 10:42:18 96 12 98 33.3 93/65(76) NSR 0 (11) 10(A) , No pain 10:46:38 88 10 99 39.4 110/63(91) NSR 0 (11) 10(A) , No pain 10:51:06 88 14 97 39.4 109/64(80) NSR 0 (11) 10(A) , No pain Medications Time Medication Route Dose Verified Delivered Reason Notes Effectiveness by by 10:15:37 0.9% NaCl I.V. 100 Herman Lisa used for ml/hr Pradip Watson aprn 10:15:44 Oxygen etCO2 2 l/min Herman Lisa used for Nasal Pradip Watson procedure cannula RN 10:15:50 Lidocaine 2% added 20ml Herman Herman for local to vial Pradip Moseley MD anesthetic field 10:15:54 Heparin Flush added 2 bags Herman Herman used for Bag to Pradip Moseley MD procedure (1000units/500ml field NS) 10:16:01 Radial Cocktail added 1 Herman Herman used for (Verapomil to syringe Pradip Moseley MD procedure 2mg/Nitro field 400mcg/Heparin 1500units) 10:32:30 Versed I.V. 2 mg Herman Lisa for sedation Pradip Watson RN 10:32:39 Fentanyl I.V. 100 mcg Herman Lisa for sedation Pradip Watson RN 10:37:00 Fentanyl I.V. 100 mcg Herman Lisa for sedation Pradip Watson RN 10:37:54 Versed I.V. 2 mg Herman Lisa for sedation Pradip Watson RN 10:42:29 Versed I.V. 2 mg Herman Lisa for sedation Pradip Watson RN 10:42:37 Fentanyl I.V. 50 mcg Herman Lisa for sedation Pradip Watson RN 10:43:03 Heparin Bolus I.V. 4000 Herman Lisa for sedation verifi ed units Pradip Watson with Dr. CAN Moseley 10:50:30 Versed I.V. 1 mg Herman Lisa for sedation Pradip Watson RN 10:53:53 Plavix P.O. 75 mg Herman Lisa for Pradip Watson antiplatelet RN therapy Procedure Log Time Note 9:55:12 Spike Jarred RT(R) (CV) sent for patient. Start room use. 10:06:13 Time tracking: Regular hours (M-F 7:00 - 5:00) 10:06:17 Plan of Care:Hemodynamics will remain stable., Cardiac rhythm will remain stable., Comfort level will be maintained., Respiratory function will remain adequate., Patient/ family verbilizes understanding of procedure., Procedure tolerated without complication., Recovers from procedure without complications.. 10:07:19 Patient Weight : 330.7 lbs 10::39 Lab Result : BUN 16 mg/dl 10::39 Lab Result : Platelets 196 10^3/l ::39 Lab Result : Hemoglobin 15.9 g/dl ::39 Lab Result : Creatinine 0.8 mg/dl 10:12:26 Patient received from Pre/Post Procedure Room to CCL 1 Alert and oriented. Tansferred to table in Supine position. 10:12:27 Warm blankets applied, and ashley hugger turned on for patient comfort. 10:12:28 Correct patient and procedure confirmed by team. 10:12:29 Signed procedure consent form obtained from patient. 10:12:30 ECG and BP/O2 sat monitors applied to patient. 10:15:37 0.9% NaCl 100 ml/hr I.V. was administered by Lisa Watson RN; used for procedure; 10:15:44 Oxygen 2 l/min etCO2 Nasal cannula was administered by Lisa Watson RN; used for procedure; 10:15:50 Lidocaine 2% 20ml vial added to field was administered by Herman Moseley MD; for local anesthetic; 10:15:54 Heparin Flush Bag (1000units/500ml NS) 2 bags added to field was administered by Herman Moseley MD; used for procedure; 10:16:01 Radial Cocktail (Verapomil 2mg/Nitro 400mcg/Heparin 1500units) 1 syringe added to field was administered by Herman Moseley MD; used for procedure; 10:19:17 Vital chart was started 10:26:54 Baseline sample Acquired. 10:26:57 Rhythm: sinus rhythm 10:26:58 Full Disclosure recording started 10:27:06 H&P Date Dictated: 03/23/2018 Within 30 days and on chart., H&P Addendum completed by physician on day of procedure. (MUST COMPLETE FOR ALL OUTPATIENTS). 10:27:08 Pre-procedure instructions explained to patient. 10::08 Pre-op teaching completed and patient verbalized understanding. 10:27:11 Family in patients room. 10:27:13 Patient NPO since Midnight. 10:27:14 Is the patient allergic to Iodine/contrast media? No. 10:27:17 Is patient on blood thinner?Yes 10:27:19 ACC The patient was administered the following blood thiners within the last 24 hours: ACCPlavix 10:27:23 Patient diabetic? No. 10:27:26 Previous problem with sedation/anesthesia? No ? 10::27 Snore? Yes 10::27 Sleep apnea? Yes 10::28 Deviated septum? No 10::29 Opens mouth fully? Yes 10:27:30 Sticks out tongue? Yes 10::32 Airway obstruction? No ? 10:27:35 Dentures? Yes IN 10:27:40 Pre procedure: right dorsailis pedis pulse 1+ Palpable, but thready & weak; easily obliterated 10:27:42 Modified Leander's test Ulnar < 7 seconds 10:27:43 Patient pain scale 0/10 ?. 10:27:52 IV patent on arrival in left forearm with 0.9% NaCl at KVO. 10:27:56 Lab results completed and on chart. 10:27:59 Right Radial & Right Groin area was prepped with chlora-prep and draped in sterile fashion 10::00 Alarms reviewed by R. N. 10::00 Sharps counted by scrub and verified by R.N. 10::07 --------ALL STOP TIME OUT------ 10::07 Final Timeout: patient, procedure, and site verified with staff and physician. All members of the team are in agreement. 10:30:09 Right Radial & Right Groin site verified by team. 10:30:13 Physical assessment completed. ASA score P 3 - A patient with severe systemic disease as per Herman Moseley MD. 10:30:17 Sedation plan: IV Moderate Sedation Medication:Versed, Fentanyl 10:32:23 Use device set Radial Dx or PCI 10:32:27 Tegaderm 4 x 4 (1626W) opened to sterile field. 10:32:27 ACIST Manifold (47838) opened to sterile field. 10:32:28 ACIST Hand Control (42224) opened to sterile field. 10:32:30 Versed 2 mg I.V. was administered by Lisa Watson RN; for sedation; 10:32:30 ACIST Syringe (96585) opened to sterile field. 10:32:30 Medline Cath Pack ([id number]) opened to sterile field. 10:32:31 Bag Decanter (2002) opened to sterile field. 10:32:32 Quick Combo opened to sterile field. 10:32:32 DIAGNOSTIC WIRE .035 260cm J wire (668821) opened to sterile field. 10:32:33 MBrace Wrist Support (675095044) opened to sterile field. 10:32:34 SHEATH 6FR Slender (80-3260) opened to sterile field. 10:32:39 Fentanyl 100 mcg I.V. was administered by Lisa Watson RN; for sedation; 10:32:42 Quick combo pads placed on patients chest and back. 10:32:54 Zero performed for pressure channel P1 10:33:56 Procedure started. 10:34:01 Local anesthetic to right radial artery with Lidocaine 2% by Herman Moseley MD.INITIAL ACCESS ONLY 10:36:30 A 6 Fr Short sheath was inserted into the Right Radial artery 10:36:50 A DIAGNOSTIC Hurley 110cm 5 Fr catheter (519011) was advanced over the wire and used for Procedure. 10:37:00 Fentanyl 100 mcg I.V. was administered by Lisa Watson RN; for sedation; 10:37:54 Versed 2 mg I.V. was administered by Lisa Watson RN; for sedation; 10:38:06 LV angiography performed. 10:38:08 LV gram done using DUVAL 10:38:15 EF : 55 % 10:38:18 Injector settings: Ml/sec: 7, Volume: 15, 10:39:01 RCA angiography performed. 10:39:19 Use device set TAUTH PCI 10:39:50 Catheter exchanged over wire. 10:40:20 GUIDE 6FR XB 4.0 catheter ([id number]) opened to sterile field. 10:41:01 6 Fr XB 4 guide catheter was inserted over the wire 10:41:53 Guide Catheter removed. unable to cannulate vessel. 10:42:03 6 Fr XBC 3.5 guide catheter was inserted over the wire 10:42:11 GUIDE 6FR XBC 3.5 (11242131) opened to sterile field. 10:42:24 LCA angiography performed. 10:42:29 Versed 2 mg I.V. was administered by Lisa Watson RN; for sedation; 10:42:37 Fentanyl 50 mcg I.V. was administered by Lisa Watson RN; for sedation; 10:43:03 Heparin Bolus 4000 units I.V. was administered by Lisa Watson RN; for sedation; verified with Dr. Moseley 10:43:08 CHOICE PT Extra Support 182cm wire ([id number]) opened to sterile field. 10:43:13 INFLATOR Merit BasixCompak (DK0688) opened to sterile field. 10:43:29 CPTXS wire advanced. 10:45:34 Wire advanced across lesion. 10:46:49 Place stent Inflation Number: 1 A ELSIE RX 3.5 x 08 stent ([id number]) was prepped and advanced across the 1st Ob Josiane. The stent was deployed at 13 TYREL for 0:10 (min:sec). 10:47:03 Inflation number: 2 The stent balloon was then re-inflated across the 1st Ob Josiane to 13 TYREL for 0:10 (min:sec). 10:48:46 TR BAND Large ([id number]) opened to sterile field. 10:49:04 Stent catheter was removed intact over wire. 10:49:04 Wire removed. 10:49:05 Guide catheter removed. 10:49:13 Sheath removed intact; hemostasis achieved with Mechanical Compression to the Right Radial artery. 10:49:15 Procedure ended.(Physican Out) 10:50:23 Fluoroscopy time 05.70 minutes. 10:50:27 Fluoroscopy dose: 1312 mGy 10:50:27 Flurop Dose total: 1312 10:50:30 Versed 1 mg I.V. was administered by Lisa Watson RN; for sedation; 10:50:31 Contrast amount:Isovue 300 110ml. 10:50:32 Sharps counted by scrub and verified by R.N. 10:50:34 TR band inflated with 10cc of air. 10:50:36 Insertion/operative site no bleeding no hematoma. 10:50:38 Post Procedure Pulses reassessed and unchanged 10:50:41 Post-procedure physical assessment completed. ASA score P 3 - A patient with severe systemic disease as per Herman Moseley MD. 10:50:44 Post procedure rhythm: unchanged. 10:50:46 Estimated blood loss: 10 ml 10:50:48 Post procedure instruction explained to patient.Patient verbalizes understanding. 10:50:49 Patient needs reinforcement of post procedure teaching. 10:50:58 Procedure type changed to Cath procedure, Diagnostic procedure, LHC, LHC w/Coronaries, PCI procedure, Coronary Stent, Coronary Stent Initial 10:51:00 Procedure and supply charges have been captured, reviewed, submitted and are correct. 10:51:06 Procedure Complication : No complications 10:51:44 Vital chart was stopped 10:51:47 See physician's report for complete and final results. 10:51:49 Report given to Pre/Post Procedure Room. 10:51:59 Patient transfered to Pre/Post Procedure Room with Stretcher. 10:52:02 Procedure ended. 10:52:02 Full Disclosure recording stopped 10:53:03 End room use (Document Last) 10:53:53 Plavix 75 mg P.O. was administered by Lisa Watson RN; for antiplatelet therapy; Intervention Summary Intervention Notes Time ActionType Lesion and Equipment Used Action# Pressure Duration Attributes 10:46:49 Place stent 1st Ob Josiane ELSIE RX 3.5 x 1 13 00:10 08 stent ([id number]) 10:47:03 Reinflate 1st Ob Josiane ELSIE RX 3.5 x 2 13 00:10 stent 08 stent balloon ([id number]) Device Usage Item Name Manufacture Quantity Catalog Number Hospital Part Current M inimal Lot# / Charge Number Stock Stock Serial# Code Tegaderm 4 x 4 3M 1 1626W 106970 998540 809159 5 (1626W) ACIST Manifold Acist 1 79947 242635 490778 969835 5 (81357) Medical Systems Inc ACIST Hand Acist 1 79515 789575 605213 094408 5 Control Medical (07920) Systems Inc ACIST Syringe Acist 1 29470 723639 450917 023839 2 0 (94455) Medical Systems Inc Medline Cath Medline 1 [id number] 465259 10728 202510 5 Pack ([id number]) Bag Decanter Microtek 1 2001S 020677 43060 697412 5 (2001S) Medical Inc. Quick Combo Web Performance Systems 1 80757-880896 003903 [address] Silvio 1 676189 931941 003382 857993 3 0 WIRE .035 260cm J wire (756637) MBrace Wrist Advanced 1 140-0250-00 563510 92803 556911 5 Support Vascular (593246064) Dynamics SHEATH 6FR Terumo 1 [id number] 174178 117457 845198 5 Slender (80-1060) DIAGNOSTIC Terumo 1 40-6863 374728 692255 503550 5 Hurley 110cm 5 Fr catheter (224884) GUIDE 6FR XB Cardinal 1 [id number] 651204 002930 958685 2 4.0 catheter Health (07628999) GUIDE 6FR XBC Cardinal 1 99488419 396138 69107 305406 5 3.5 (22796974) Health CHOICE PT Cal[place]oun 1 [id number] 365948 719706 926696 5 Extra Support Scientific 182cm wire (7559643P4) INFLATOR Merit Merit 1 VT8835 443990 470061 688142 1 5 [facility] (PF5828) ELSIE RX 3.5 x Medtronic 1 [id number] 008712 3550084 971011 5 [id number] 08 stent ([id number]) TR BAND Large Terumo 1 [id number] 501844 116722 678474 4 0 ([id number]) Signature Audit [place] Stage Time Signature Unsigned Intra-Procedure 03/23/2018 Sundeep Rodriguez 10:56:36 AM RT(R) Signatures Monitor : Sundeep Rodriguez RT Signature : Date : Time : [id number] [place] [address]
--- NOTE | ~2018-03-23 | OP ---
PATIENT NAME: HEMANTH JUDD MEDICAL RECORD: [id number] :76 LOCATION:D.[facility] ADMISSION DATE: SURGEON: ADELIA BAEZA MD DATE OF OPERATION: 03/23/2018 PROCEDURES: 1. PTCA stent left circumflex first obtuse marginal. 2. Left heart catheterization. 3. Selective coronary angiography. 4. Left ventriculogram. INDICATION: Angina and coronary artery disease. PROCEDURE IN DETAIL: After informed consent was obtained and after a detailed description of the risks, benefits as well as alternative therapies, the patient elected to proceed with angiogram and angioplasty. The right radial area was prepped and draped in normal sterile fashion. Right radial artery was cannulated via modified Seldinger technique with placement of 6-Zambian sheath. All catheters exchanged through this sheath. FINDINGS: Left ventriculogram was performed in the standard 30-degree DUVAL view reveals good cardiac wall motion throughout all segments. Overall ejection fraction preserved at 50%. SELECTIVE CORONARY ANGIOGRAPHY: 1. Left main showed no significant angiographic disease. 2. Left anterior descending has previously placed stent. This is widely patent with no significant restenosis. No disease elsewise throughout the LAD or its branches. 3. Left circumflex has a previously placed stent. There is 70% to 75% stenosis in front of the previously placed stent. 4. The right coronary artery has moderate irregularities, but no flow-limiting stenosis. PTCA STENT OF THE LEFT CIRCUMFLEX FIRST OBTUSE MARGINAL: The stent used was a 3.5 x 8 mm Harrison. Result was 0% residual stenosis. OVERALL IMPRESSION: Successful percutaneous transluminal coronary angioplasty stent of the first obtuse marginal going from 75% initial stenosis to 0% residual. TRANSINT:[id number] Voice Confirmation ID: [id number] DOCUMENT ID: [id number] ADELIA BAEZA MD at 1228 CC: [id number] DICTATION DATE: 03/23/18 1053 VARNISH MELTER: 03/23/18 1140 DEP CLI 03/23/18 [place] [id number]
--- NOTE | ~2018-03-23 | HP ---
PATIENT: HEMANTH JUDD MEDICAL RECORD: [id number] ACCOUNT: [id number] LOCATION:[facility] : 76 ADMISSION DATE: 03/23/18 PCP: No PCP HISTORY AND PHYSICAL EXAMINATION DIAGNOSES: 1. Unstable angina. 2. Coronary artery disease. 3. Previous PTCA stent LAD and circumflex. 4. Hypertension. HISTORY OF PRESENT ILLNESS: This is a gentleman who presents with an acute myocardial infarction in November. He underwent PTCA stent of the LAD and circumflex. He has now had some increasing episodes of chest pain compatible with angina. He does have significant disease of the right coronary artery. PHYSICAL EXAMINATION: GENERAL APPEARANCE: Well-nourished, well-developed, appears stated age. Level of distress, comfortable. PSYCHIATRIC: Mental status, alert, normal affect. Orientation, oriented to time, place and person. EYES: Lids and conjunctiva, noninjected. No discharge, no pallor. ENT: Lips, teeth, gums, normal dentition. Oropharynx, no cyanosis, no pallor. NECK: Carotid arteries, bilateral normal upstroke, no bruits, no thrills. JUGULAR VEINS: No jugular venous pressure or distention. CERVICAL LYMPH NODES: Nontender, nonenlarged. THYROID: Not enlarged. Nontender. No nodules. LUNGS: Respiratory effort, unlabored. CHEST: Normal curvature. No thoracic deformity. No chest wall tenderness. Percussion, resonant. Auscultation, clear. No wheezes, no rales, no rhonchi. CARDIOVASCULAR: Precordial exam, nondisplaced. No heaves or pericardial thrills. Rate and rhythm, regular. Heart sounds, normal S1, normal S2. No S3, no gallop, no rub. Systolic murmur, not heard. Diastolic murmur, not heard. EXTREMITIES: No cyanosis, no edema. Peripheral pulses, full and equal in all extremities, except as noted. No bruits appreciated. ABDOMEN: Soft, nondistended. Normal aorta. No bruit. Nontender. No masses. Liver, nontender, no hepatomegaly. Spleen, nontender, no splenomegaly. MUSCULOSKELETAL: No joint tenderness. No joint swelling. No erythema. NEUROLOGICAL: Normal gait, normal strength, normal tone. SKIN: Warm and dry. OVERALL IMPRESSION: Chest pain compatible with angina in a gentleman with past history of coronary artery disease in an escalating fashion. We will proceed with coronary angiography. Further care depends upon the findings of the angiography. TRANSINT:[id number] Voice Confirmation ID: [id number] DOCUMENT ID: [id number] HISTORY AND PHYSICAL [id number] HEMANTH JUDD JEFFREY MD at 1108 CC: [id number] DICTATION DATE: 03/23/18928 NON MORSE INTERCEPT TECHNICIAN: 03/23/18 1056 [id number] [place] [address]
[2018-03-23 09:37] VITALS: BP 111/63; Ht 195.6 cm; Wt 150.0 kg
[2018-03-23 09:48] LABS: BASOPHILS 0.4 % (0-2); EOSINOPHILS 2.2 % (0-7); HEMOGLOBIN 15.9 g/dL (13.5-17.5); IMMATURE GRANULOCYTES 0.1 % (0-5); LYMPHOCYTES 30.7 % (15-50); MCH 31.1 pg (26.0-34.0); MCHC 35.3 g/dL (31.0-37.0); MCV 88.1 fL (80.0-100.0); MEAN PLATELET VOLUME 10.9 fL (7.4-10.4); MONOCYTES 7.6 % (2-11); PLATELET COUNT 196 10x3/uL (130-400); RBC 5.11 10x6/uL (4.20-6.10); RDW 12.4 % (11.5-14.5)
[2018-03-23 09:49] LABS: WBC 7.4 10x3/uL (4.8-10.8)
[2018-03-23 10:00] LABS: CALC OSMOLALITY 273 mosm/kg (275-300); CALCIUM 8.3 mg/dL (8.5-10.1); CARBON DIOXIDE 26.7 mmol/L (21.0-32.0); CHLORIDE - SERUM 101 mmol/L (98-107); CREATININE - SERUM 0.8 mg/dL (0.6-1.3); GLUCOSE 118 mg/dL (74-106); POTASSIUM - SERUM 4.2 mmol/L (3.5-5.1); SODIUM 136 mmol/L (136-145); UREA NITROGEN 16 mg/dL (7-18); eGFR NON AFRICAN AMERICAN > 90 mL/min (90-120)
[2018-03-23] MEDS ORDERED: PLAVIX75 MG PO (10:59)
== END 2018-03-23 14:56 | disposition home or self-care (01) ==
LOC: D.CATH 09:03
PROVIDERS: Internal Medicine Interventional Cardiology
DX: I25.110 Atherosclerotic heart disease of native coronary artery with unstable angina pectoris (principal); Z95.5 Presence of coronary angioplasty implant and graft; I10 Essential (primary) hypertension; Z01.812 Encounter for preprocedural laboratory examination

== ENCOUNTER 2018-04-04 10:48 | Observation (INO) | payer MEDICAID ==
[~2018-04-04] VITALS: Ht 195.6 cm; Wt 145.5 kg
--- NOTE | ~2018-04-04 | HEMODYNAMI ---
PATIENT:HEMANTH JUDD MEDICAL RECORD: [id number] : 76 [facility]# [id number] ADMISSION DATE: 04/04/18 Generatedon:04/04/201812:19 Patient name: HEMANTH JUDD Patient #: [id number] : 1980 Date of study: 04/04/2018 Page: Of Hemodynamic Procedure Report Patient Data Patient Demographics Procedure consent was obtained First Name: HEMANTH Gender: Male Last Name: DUTCH : 1980 [facility] Initial: J Age: 37 year(s) Patient #: [id number] Race: SSN: [id number] Additional ID: [id number] Contact details Address: [address] [place] [address] State: [place] City: [facility] Zip code: [address] Past Medical History Allergies Allergen Reaction Date Comments Reported Other allergy 01/02/2018 Other allergy 04/04/2018 cOREG Admission Admission Data Admission Date: 04/04/2018 Admission Time: 11:35 Room #: D.E14 Procedure Procedure Types Cath Procedure Diagnostic Procedure C [facility] w/Coronaries Procedure Description Procedure Date Procedure Date: 04/04/2018 Procedure Start Time: 12:08 Procedure End Time: 12:17 Procedure Staff Name Function Herman Moseley MD Performing Physician Nikkie Colón RT Monitor Adonis Braun RN Nurse Kandi Tong RT Scrub Procedure Data Cath Procedure Fluoroscopy Diagnostic fluoroscopy Total fluoroscopy Time: 0.8 time: 0.8 min min Diagnostic fluoroscopy Total fluoroscopy dose: 568 dose: 568 mGy mGy Contrast Material Contrast Material Type Amount (ml) Isovue 300 62 Entry Location Entry Primary Successful Side Size Upsize Upsize Entry Closure Succes sful Closure Location (Fr) 1 (Fr) 2 (Fr) Remarks Device Remarks Femoral Right 6 Fr Exoseal artery Short Estimated blood loss: 10 ml Diagnostic catheters Device Type Used For End Catheter Placement MULTIPACK Pigtail 5 Fr Procedure catheter MULTIPACK JL 4.0 5Fr Procedure catheter MULTIPACK 3DRC 5Fr Procedure catheter Procedure Complications No complications Procedure Medications Medication Administration Route Dosage Oxygen etCO2 Nasal cannula 2 l/min Heparin Flush Bag added to field 2 bags (1000units/500ml NS) 0.9% NaCl I.V. 100 ml/hr Lidocaine 2% added to field 20 Integrilin (Bolus I.V. 11.3 ml 2mg/ml) Fentanyl I.V. 100 mcg Versed I.V. 2 mg Fentanyl I.V. 50 mcg Fentanyl I.V. 50 mcg Versed I.V. 2 mg Integrilin (Bolus wasted 8.7 ml 2mg/ml) Hemodynamics Rest Heart Rate: 90 (bpm) Snapshots Pre Cath Intra NCS Post Cath Vital Signs Time Heart Resp SPO2 etCO2 NIBP Rhythm Pain Sedation Rate (ipm) (%) (mmHg) (mmHg) Status Level (bpm) 11:53:56 91 16 99 34.3 126/75(94) NSR 0 (11) 10(A) , No pain 11:58:14 96 17 98 29.1 145/81(95) NSR 0 (11) 10(A) , No pain 12:02:34 92 17 95 34.3 122/69(85) NSR 0 (11) 9(A) , No pain 12:06:55 89 17 94 35.1 125/67(91) NSR 0 (11) 9(A) , No pain 12:11:17 87 16 94 38.8 128/69(90) NSR 0 (11) 9(A) , No pain 12:15:37 89 17 96 29.8 118/71(94) NSR 0 (11) 9(A) , No pain Medications Time Medication Route Dose Verified Delivered Reason Notes Effectiveness by by 11:58:08 Oxygen etCO2 2 Herman Lamb Per physician Nasal l/min Pradip Braun RN cannula 11:58:15 Heparin Flush added 2 Herman Lamb used for Bag to bags Pradip Braun sail finisher machine (1000units/500ml field NS) 11:58:23 0.9% NaCl I.V. 100 Herman Lamb Per physician ml/hr Pradip Braun RN 11:58:31 Lidocaine 2% added 20ml Herman Lamb used for to vial Pradip Braun sail finisher machine field 11:58:46 Integrilin I.V. 11.3 Herman Lamb for (Bolus 2mg/ml) ml Pradip Braun RN anticoagulation 12:00:17 Fentanyl I.V. 100 Herman Lamb for sedation mcg Pradip Braun RN 12:00:23 Versed I.V. 2 mg Herman Lamb for sedation Pradip Braun RN 12:03:48 Fentanyl I.V. 50 Herman Lamb for sedation mcg Pradip Braun RN 12:07:12 Fentanyl I.V. 50 Herman Lamb for sedation mcg Pradip Braun RN 12:08:32 Versed I.V. 2 mg Herman Lamb for sedation Pradip Braun RN 12:16:31 Integrilin wasted 8.7 Herman Lamb for (Bolus 2mg/ml) ml Pradip Braun RN anticoagulation Procedure Log Time Note 11:34:40 Adonis Braun RN sent for patient. Start room use. 11:34:41 Time tracking: Call back (After hours or weekends) 11:34:45 Plan of Care:Hemodynamics will remain stable., Cardiac rhythm will remain stable., Comfort level will be maintained., Respiratory function will remain adequate., Patient/ family verbilizes understanding of procedure., Procedure tolerated without complication., Recovers from procedure without complications.. 11:52:37 Patient received from ED to CCL 1 Alert and oriented. Tansferred to table in Supine position. 11:52:38 Warm blankets applied, and ashley hugger turned on for patient comfort. 11:52:39 Correct patient and procedure confirmed by team. 11:52:40 Signed procedure consent form obtained from patient. 11:52:41 ECG and BP/O2 sat monitors applied to patient. 11:52:41 Vital chart was started 11:52:42 Full Disclosure recording started 11:54:38 H&P Date Dictated: 04/04/2018 Emergent; H&P N/A. 11:54:40 Pre-procedure instructions explained to patient. 11:54:42 Family in waiting room. 11:54:44 Patient NPO since Midnight. 11:54:59 Patient allergic to Other allergycOREG 11:55:03 Is the patient allergic to Iodine/contrast media? No. 11:55:05 Was the patient premedicated? Yes 11:55:06 Is patient on blood thinner?Yes 11:55:10 ACC The patient was administered the following blood thiners within the last 24 hours: ACCPlavix 11:55:15 Patient diabetic? No. 11:55:22 Snore? Yes 11:55:23 Sleep apnea? No 11:55:25 Deviated septum? No 11:55:32 Dentures? Yes IN TIGHT 11:55:38 Patient pain scale 3/10 ?. 11:55:45 IV patent on arrival in left forearm with 0.9% NaCl at [facility]. 11:55:49 Lab results completed and on chart. 11:55:53 Right groin area was prepped with chlora-prep and draped in sterile fashion 11:55:54 Alarms reviewed by R. N. 11:55:54 Sharps counted by scrub and verified by R.N. 11:55:57 Physician arrived 11:55:58 --------ALL STOP TIME OUT------ 11:55:59 Final Timeout: patient, procedure, and site verified with staff and physician. All members of the team are in agreement. 11:56:01 Right groin site verified by team. 11:56:05 Physical assessment completed. ASA score P 2 - A patient with mild systemic disease as per Herman Moseley MD. 11:56:10 Sedation plan: IV Moderate Sedation Medication:Versed, Fentanyl 11:58:08 Oxygen 2 l/min etCO2 Nasal cannula was administered by Adonis Braun RN; Per physician; 11:58:15 Heparin Flush Bag (1000units/500ml NS) 2 bags added to field was administered by Adonis Braun RN; used for procedure; 11:58:23 0.9% NaCl 100 ml/hr I.V. was administered by Adonis Braun RN; Per physician; 11:58:31 Lidocaine 2% 20ml vial added to field was administered by Adonis Braun RN; used for procedure; 11:58:46 Integrilin (Bolus 2mg/ml) 11.3 ml I.V. was administered by Adonis Barun RN; for anticoagulation; 11:59:56 Use device set Femoral Dx 11:59:58 ACIST Syringe (18345) opened to sterile field. 11:59:59 Bag Decanter (2002S) opened to sterile field. 12:00:00 Medline Cath Pack ([id number]) opened to sterile field. 12:00:01 DIAGNOSTIC WIRE .035 260cm J wire (926327) opened to sterile field. 12:00:02 ACIST Hand Control (25376) opened to sterile field. 12:00:03 ACIST Manifold (24154) opened to sterile field. 12:00:06 DIAGNOSTIC Multipack 5Fr catheter set (CO3819) opened to sterile field. 12:00:17 Fentanyl 100 mcg I.V. was administered by Adonis Braun RN; for sedation; 12:00:23 Versed 2 mg I.V. was administered by Adonis Braun RN; for sedation; 12:02:41 SHEATH 6FR [place] (WSF254) opened to sterile field. 12:02:58 Zero performed for pressure channel P1 12:03:48 Fentanyl 50 mcg I.V. was administered by Adonis Braun RN; for sedation; 12:03:57 Baseline sample Acquired. 12:04:04 Rhythm: sinus rhythm 12:06:49 Procedure started. 12:07:12 Fentanyl 50 mcg I.V. was administered by Adonis Braun RN; for sedation; 12:08:06 Local anesthetic to right femoral artery with Lidocaine 2% by Herman Moseley MD.INITIAL ACCESS ONLY 12:08:17 A 6 Fr Short sheath was inserted into the Right Femoral artery 12:08:32 Versed 2 mg I.V. was administered by Adonis Braun RN; for sedation; 12:08:49 A MULTIPACK Pigtail 5 Fr catheter was advanced over the wire and used for Procedure. 12:09:03 LV angiography performed. 12:09:56 Catheter removed. 12:10:36 EF : 40 % 12:11:30 A MULTIPACK JL 4.0 5Fr catheter was advanced over the wire and used for Procedure. 12:11:35 LCA angiography performed. 12:11:56 Catheter removed. 12:12:11 A MULTIPACK 3DRC 5Fr catheter was advanced over the wire and used for Procedure. 12:13:16 RCA angiography performed. 12:13:18 Catheter removed. 12:13:35 EXOSEAL 6Fr (EX600) opened to sterile field. 12:13:49 Sheath removed intact; hemostasis achieved with Exoseal to the Right Femoral artery. 12:13:52 Procedure ended.(Physican Out) 12:14:06 Fluoroscopy time 00.80 minutes. 12:14:11 Fluoroscopy dose: 568 mGy 12:14:11 Flurop Dose total: 568 12:14:18 Contrast amount:Isovue 300 62ml. 12:14:20 Sharps counted by scrub and verified by R.N. 12:14:23 Insertion/operative site no bleeding no hematoma. 12:14:27 Post-op/insertion site Right Femoral artery dressed using a 4 x 4 and Tegaderm. 12:14:39 Post Procedure Pulses reassessed and unchanged 12:14:44 Post-procedure physical assessment completed. ASA score P 2 - A patient with mild systemic disease as per Herman Moseley MD. 12:14:49 Post procedure rhythm: sinus rhythm 12:15:20 Estimated blood loss: 10 ml 12:15:24 Post procedure instruction explained to patient.Patient verbalizes understanding. 12:16:24 Patient needs reinforcement of post procedure teaching. 12:16:31 Integrilin (Bolus 2mg/ml) 8.7 ml wasted was administered by Adonis Braun RN; for anticoagulation; 12:16:37 Procedure and supply charges have been captured, reviewed, submitted and are correct. 12:17:14 Procedure Complication : No complications 12:17:28 Vital chart was stopped 12:17:29 See physician's report for complete and final results. 12:17:31 Report given to Pre/Post Procedure Room. 12:17:36 Patient transfered to Pre/Post Procedure Room with Bed. 12:17:38 Procedure ended. 12:17:38 Full Disclosure recording stopped 12:17:41 End room use (Document Last) Device Usage Item Name Manufacture Quantity Catalog Hospital Part Current Minimal L ot# / Number Charge Number Stock Stock Serial# Code ACIST Acist 1 57548 547008 022838 545778 20 Syringe Medical (86913) Systems Inc Bag Microtek 1 800961 65344 719426 5 Decanter Medical Inc. () Medline Medline 1 [id number] 229938 08898 879209 5 Cath Pack ([id number]) DIAGNOSTIC St Silvio 1 523047 099614 922100 602436 30 WIRE .035 260cm J wire (459307) ACIST Hand Acist 1 35150 531178 790984 081538 5 Control Medical (97742) Systems Inc ACIST Acist 1 07506 220000 671638 668074 5 Manifold Medical (34231) Systems Inc DIAGNOSTIC Cardinal 1 MZ8510 056722 71506 384982 30 Multipack Health 5Fr catheter set (FP8957) SHEATH 6FR Terumo 1 KBK597 871368 590416 645458 40 [place] (STO082) MULTIPACK Cardinal 1 872258 5 Pigtail 5 Health Fr catheter MULTIPACK Cardinal 1 035703 5 JL 4.0 5Fr Health catheter MULTIPACK Cardinal 1 129975 5 3DRC 5Fr Health catheter EXOSEAL 6Fr Cardinal 1 EX600 403195 440633 346528 10 (EX600) Health Signature Audit [place] Stage Time Signature Unsigned Intra-Procedure 04/04/2018 Nikkie Colón 12:18:57 PM RT(R) Signatures Monitor : Nikkie Colón Signature : RT Date : Time : [id number] [place] [address]
--- NOTE | ~2018-04-04 | OP ---
PATIENT NAME: HEMANTH JUDD MEDICAL RECORD: [id number] :[birth year] LOCATION:D.M2 D.2113 ADMISSION DATE:04/04/18 SURGEON: ADELIA BAEZA MD DATE OF OPERATION: 04/04/2018 PROCEDURES: 1. Left heart catheterization. 2. Selective coronary angiography. 3. Left ventriculogram. INDICATION: Chest pain compatible with angina. PROCEDURE IN DETAIL: After informed consent was obtained and after a detailed description of the risks, benefits as well as alternative therapies, the patient elected to proceed with angiogram and heart catheterization. The right femoral area was prepped and draped in normal sterile fashion. Right femoral artery was cannulated via modified Seldinger technique with placement of 5-Turkmen sheath. All catheters exchanged through this sheath. FINDINGS: Left ventriculogram was performed in standard 30-degree DUVAL view, reveals mild global hypokinesis, ejection fraction, however, is 40%. SELECTIVE CORONARY ANGIOGRAPHY: 1. Left main is with no significant angiographic disease. 2. Left anterior descending has previously placed stents, these are widely patent with no significant restenosis. No disease elsewise throughout the LAD or its branches. 3. Left circumflex has previously placed stents, these are widely patent with no significant restenosis. No disease elsewhere throughout the circumflex or its branches. 4. Right coronary is small, nondominant with no significant disease. OVERALL IMPRESSION: Wide patency of the previously placed stents, no disease elsewise. Continue medical management of the coronary artery disease and cardiac risk factors. TRANSINT:[id number] Voice Confirmation ID: [id number] DOCUMENT ID: [id number] ADELIA BAEZA MD at 1456 CC: [id number] DICTATION DATE: 04/04/18 1218 ENGINEERING PRODUCTION WORKER: 04/04/18 1336 DIS IN 04/05/18 [facility] [address] [id number]
--- NOTE | ~2018-04-04 | MORECARE ---
CASE MANAGEMENT DISCHARGE SUMMARY PATIENT: HEMANTH JUDD UNIT: [id number] ADM DATE: 04/04/18 AGE: 37 : [birth year] SEX: M ROOM/BED: D.2113 AUTHOR: MALLIKA GALEAS PHYSICIAN: REFERRING PHYSICIAN: ADELIA BAEZA MD DATE OF SERVICE: 04/06/18 Discharge Plan Patient Name: [facility]EMANTH JUDD [facility] [facility] 1980 Planned Disposition: Home Anticipated Discharge Date: 04/05/18 Discharge Date: 04/05/2018 Expected LOS: 1 Initial Reviewer: [email or web address] Initial Review Date: 04/06/2018 Generated: 04/06/18 11:05 am Patient Name: HEMANTH JUDD Page 58534 at 1005 All edits/amendments must be made on the electronic document DICTATION DATE: 04/06/18 1005 BACTERIOLOGY RESEARCH ASSISTANT: JORGE 04/06/18 1005 RPT#: [id number] DC DATE:04/05/18 STATUS: DIS IN [facility] [address] [place] [address] END OF REPORT
--- NOTE | ~2018-04-04 | HP ---
PATIENT: HEMANTH JUDD MEDICAL RECORD: [id number] ACCOUNT: [id number] LOCATION:[facility] D.2113 : [birth year] ADMISSION DATE: 04/04/18 PCP: ADELIA BAEZA MD HISTORY AND PHYSICAL EXAMINATION DIAGNOSES: 1. Unstable angina. 2. Coronary artery disease. 3. Previous PTCA and stent of LAD and circumflex. 4. Ventricular tachycardia. 5. Hypertension. 6. Hyperlipidemia. HISTORY OF PRESENT ILLNESS: This is a gentleman well known to us, who presented with an acute anterior myocardial infarction within the last month. Had total occlusion of the LAD with life-threatening ventricular tachycardia and cardiac arrest. He underwent PTCA and stent of the LAD. He had concomitant disease of the circumflex. He underwent PTCA and stent of the circumflex times 2. He has continued to have episodes of chest pain today. The chest pain worsens and he woke up diaphoretic. REVIEW OF SYSTEMS: The patient reports easy bruising but reports no swollen glands. The patient reports no fever, no night sweats, no significant weight gain, no significant weight loss. No significant exercise tolerance. The patient reports no dry eyes, no irritation, no vision change. Patient reports no difficulty hearing and no ear pain. Patient reports no frequent nose bleeds or nose and sinus problems. Patient reports on arm pain on exertion. No shortness of breath while lying down. No history of heart murmur. Patient reports no cough, no wheezing or coughing up blood. Patient reports no abdominal pain, no vomiting. Normal appetite. No diarrhea and not vomiting blood. No nausea and no constipation. Patient reports no incontinence. No difficulty urinating. No hematuria. No increased frequency. Patient reports no muscle aches. No weakness, no arthralgias, no back pain. No swelling of the extremities. Patient reports no abnormal mole, no jaundice, no rashes. Reports no loss of consciousness. No weakness and no numbness. No seizures, dizziness, or headaches. The patient reports no depression, no sleep disturbance, feeling safe in a relationship and no alcohol abuse. Patient reports on fatigue. Reports no runny nose or sinus pressure. No itching, no hives, and no frequent sneezing. PHYSICAL EXAMINATION: GENERAL APPEARANCE: Well-nourished, well-developed, appears stated age. Level of distress, comfortable. PSYCHIATRIC: Mental status, alert, normal affect. Orientation, oriented to time, place and person. EYES: Lids and conjunctiva, noninjected. No discharge, no pallor. ENT: Lips, teeth, gums, normal dentition. Oropharynx, no cyanosis, no pallor. NECK: Carotid arteries, bilateral normal upstroke, no bruits, no thrills. JUGULAR VEINS: No jugular venous pressure or distention. CERVICAL LYMPH NODES: Nontender, nonenlarged. THYROID: Not enlarged. Nontender. No nodules. LUNGS: Respiratory effort, unlabored. CHEST: Normal curvature. No thoracic deformity. No chest wall tenderness. Percussion, resonant. Auscultation, clear. No wheezes, no rales, no rhonchi. CARDIOVASCULAR: Precordial exam, nondisplaced. No heaves or pericardial HISTORY AND PHYSICAL [id number] JUDD,HEMANTH thrills. Rate and rhythm, regular. Heart sounds, normal S1, normal S2. No S3, no gallop, no rub. Systolic murmur, not heard. Diastolic murmur, not heard. EXTREMITIES: No cyanosis, no edema. Peripheral pulses, full and equal in all extremities, except as noted. No bruits appreciated. ABDOMEN: Soft, nondistended. Normal aorta. No bruit. Nontender. No masses. Liver, nontender, no hepatomegaly. Spleen, nontender, no splenomegaly. MUSCULOSKELETAL: No joint tenderness. No joint swelling. No erythema. NEUROLOGICAL: Normal gait, normal strength, normal tone. SKIN: Warm and dry. OVERALL IMPRESSION: Unstable angina, possible acute coronary syndrome. His EKG is abnormal, but has been abnormal since his myocardial infarction. Difficult to read if this is acute changes. We will proceed with coronary angiography. Further care depends upon the findings of the angiography. TRANSINT:[id number] Voice Confirmation ID: [id number] DOCUMENT ID: [id number] ADELIA BAEZA MD at 1456 CC: [id number] DICTATION DATE: 04/04/18 1136 MACHINING AND ASSEMBLY SUPERVISOR: 04/04/18 1149 DIS IN 04/05/18 [address] [place] [address]
[2018-04-04 11:09] LABS: BASOPHILS 0.3 % (0-2); EOSINOPHILS 1.8 % (0-7); HEMATOCRIT 46.7 % (42.0-54.0); HEMOGLOBIN 16.5 g/dL (13.5-17.5); IMMATURE GRANULOCYTES 0.2 % (0-5); LYMPHOCYTES 34.8 % (15-50); MCH 31.2 pg (26.0-34.0); MCHC 35.3 g/dL (31.0-37.0); MCV 88.3 fL (80.0-100.0); MEAN PLATELET VOLUME 10.5 fL (7.4-10.4); MONOCYTES 7.7 % (2-11); NEUTROPHILS 55.2 % (40-80); PLATELET COUNT 226 10x3/uL (130-400); RBC 5.29 10x6/uL (4.20-6.10); RDW 12.6 % (11.5-14.5); WBC 10.4 10x3/uL (4.8-10.8)
[2018-04-04 11:31] LABS: ALBUMIN 3.8 g/dL (3.4-5.0); ALKALINE PHOSPHATASE 89 U/L (46-116); ALT (SGPT) 98 U/L (10-68); BILIRUBIN - TOTAL 1.79 mg/dL (0.2-1.3); CALC OSMOLALITY 275 mosm/kg (275-300); CARBON DIOXIDE 24.3 mmol/L (21.0-32.0); CHLORIDE - SERUM 102 mmol/L (98-107); GLUCOSE 123 mg/dL (74-106); POTASSIUM - SERUM 4.3 mmol/L (3.5-5.1); PROTEIN - SERUM 7.9 g/dL (6.4-8.2); SODIUM 137 mmol/L (136-145); UREA NITROGEN 15 mg/dL (7-18); eGFR NON AFRICAN AMERICAN 88 mL/min (90-120)
[2018-04-04 11:42] LABS: CKMB 2.3 U/L (0.0-3.6); CREATINE KINASE 208 UL (21-232); MAGNESIUM - SERUM 1.9 mg/dL (1.8-2.4); PRO BNP 642 pg/mL (0-125); TROPONIN-I < 0.017 ng/mL (0.000-0.060)
[2018-04-04 13:12] VITALS: BP 101/61; Ht 195.6 cm; Wt 145.5 kg
[2018-04-04 16:14] VITALS: BP 99/52
[2018-04-04 19:55] VITALS: BP 96/55
[2018-04-04 23:45] VITALS: BP 98/59
[2018-04-05 03:55] VITALS: BP 98/59
[2018-04-05 11:34] VITALS: BP 97/64
== END 2018-04-05 12:57 | disposition home or self-care (01) ==
LOC: D.ER 10:48 → OBSVTIME 11:35 → D.EDHOLD 11:35 → D.M2 12:40
PROVIDERS: Family Medicine
DX: I25.110 Atherosclerotic heart disease of native coronary artery with unstable angina pectoris (principal); Z95.5 Presence of coronary angioplasty implant and graft; I47.2 Ventricular tachycardia; I10 Essential (primary) hypertension; E78.5 Hyperlipidemia, unspecified; R94.31 Abnormal electrocardiogram [ECG] [EKG]

== ENCOUNTER 2018-08-04 16:59 | Observation (INO) | payer MEDICAID ==
[~2018-08-04] VITALS: Ht 195.6 cm; Wt 141.4 kg
--- NOTE | ~2018-08-04 | OP ---
PATIENT NAME: HEMANTH JUDD MEDICAL RECORD: [id number] :[birth year] LOCATION:[facility] ADMISSION DATE:08/04/18 SURGEON: ADELIA BAEZA MD DATE OF OPERATION: 08/05/2018 PROCEDURES: 1. PTCA and stent of left circumflex. 2. PTCA and stent of LAD. 3. Intravascular ultrasound. 4. Left heart catheterization. 5. Selective coronary angiography. 6. Left ventriculogram. INDICATIONS: Angina and coronary artery disease. PROCEDURE IN DETAIL: After informed consent was obtained and after a detailed explanation of the risks, benefits as well as alternative therapies, the patient elected to proceed with angiogram and angioplasty. The right radial area was prepped and draped in normal sterile fashion. Right radial artery was cannulated via modified Seldinger technique with placement of 6-[place] sheath. All catheters exchanged through this sheath. FINDINGS: The left ventriculogram was performed in standard 30-degree DUVAL view, reveals global hypokinesis throughout all segments. Overall ejection fraction is 30% to 35%. SELECTIVE CORONARY ANGIOGRAPHY: 1. Left main is with no significant angiographic disease. 2. Left anterior descending has previously placed stent. This is widely patent. However, proximal to the previously placed stent in the proximal LAD, there is 75% stenosis confirmed by intravascular ultrasound. 3. Left circumflex has previously placed stent in the obtuse marginal. There is 75% stenosis proximal and distal to that. 4. The right coronary has mild irregularities, no flow-limiting stenosis. PTCA AND STENT OF THE LAD AND CIRCUMFLEX: The LAD was addressed with a 4.0 x 12-mm Lee. The circumflex covering both lesions were addressed with a 2.5 x 30-mm Bazine. The result was 0% residual. OVERALL IMPRESSION: Successful PTCA and stent of the LAD and circumflex, both going from 75% initial stenosis to 0% residual. TRANSINT:[id number] Voice Confirmation ID: [id number] DOCUMENT ID: [id number] ADELIA BAEZA MD CC: [id number] DICTATION DATE: 08/05/18902 BATTERY SERVICE TECHNICIAN: 08/05/18 1347 DIS IN 08/05/18 [facility] [address] [place] [address]
--- NOTE | ~2018-08-04 | DS ---
PATIENT:HEMANTH JUDD :[birth year] MEDICAL RECORD: [id number] DISCHARGE SUMMARY ADMISSION DATE: 08/04/18 DISCHARGE DATE: 08/05/18 DISCHARGE DIAGNOSES: 1. Unstable angina. 2. Coronary artery disease. 3. Percutaneous transluminal coronary angioplasty and stent of the left anterior descending and circumflex this admission. HOSPITAL COURSE: Mr. Judd presents with unstable anginal symptomatology, found to have significant disease of the LAD and circumflex, underwent successful PTCA and stent of both territories, was discharged home with no change in his medication as he is already on aspirin and Plavix. Will follow up with [facility] in 1 month. TRANSINT:[id number] Voice Confirmation ID: [id number] DOCUMENT ID: [id number] ADELIA BAEZA MD CC: [id number] DICTATION DATE: 08/05/18900 TECHNICAL ASSISTANT: 08/05/182355 DIS IN 08/05/[address] [facility] [address] [id number]
--- NOTE | ~2018-08-04 | HEMODYNAMI ---
PATIENT:HEMANTH JUDD MEDICAL RECORD: [id number] : 76 [facility] [id number] ADMISSION DATE: 08/04/18 Generatedon:08/05/20189:05 Patient name: HEMANTH JUDD Patient #: [id number] : 1980 Date of study: 08/05/2018 Page: Of Hemodynamic Procedure Report Patient Data Patient Demographics Procedure consent was obtained First Name: HEMANTH Gender: Male Last Name: DUTCH : 1980 Middle Initial: J Age: 38 year(s) Patient #: [id number] Race: SSN: [id number] Additional ID: [id number] Contact details Address: [address] [place] [address] State: [place]: [facility] [place] Zip code: [address] Past Medical History Allergies Allergen Reaction Date Comments Reported Other allergy 01/02/2018 Other allergy 04/04/2018 cOREG Other allergy 08/05/2018 Coreg Admission Admission Data Admission Date: 08/04/2018 Admission Time: 19:21 Room #: D.2123 Height (in.): 77 BSA: 2.7 (m2) Height (cm.): 195.58 BMI: 36.96 (kg/m2) Weight (lbs.): 311.65 Weight (kg.): 141.36 Lab Results Lab Result Date: 08/05/2018 Lab Result Time: 0:00 Biochemistry Name Units Result Min Max BUN mg/dl 22 --(----)-* 7 18 Creatinine mg/dl 1 --(--*-)-- 0.6 1.3 CBC Name Units Result Min Max Hemoglobin g/dl 15.7 --(--*-)-- 13.5 17.5 Procedure Procedure Types Cath Procedure Diagnostic Procedure LHC LHC w/Coronaries FFR/IVUS Intra-Coronary IVUS Initial Sedation Charges Moderate Sedation up to 15 minutes PCI Procedure Coronary Stent Coronary Stent Initial x2 Procedure Description Procedure Date Procedure Date: 08/05/2018 Procedure Start Time: 8:44 Procedure End Time: 9:01 Procedure Staff Name Function Herman Moseley MD Performing Physician Hanna Torres RN Welding Machine Assembler Roshan Nelson RT Monitor Adonis Braun RN Nurse Nikkie Colón RT Scrub Procedure Data Cath Procedure Fluoroscopy Diagnostic fluoroscopy Total fluoroscopy Time: 5.4 time: 5.4 min min Diagnostic fluoroscopy Total fluoroscopy dose: dose: 663.47 mGy 663.47 mGy Contrast Material Contrast Material Type Amount (ml) Isovue 300 127 Entry Location Entry Primary Successful Side Size Upsize Upsize Entry Closure Padron ccessful Closure Location (Fr) 1 (Fr) 2 (Fr) Remarks Device Remarks Radial Right 6 Fr Mechanical artery Short Compression Estimated blood loss: 10 ml Diagnostic catheters Device Type Used For End Catheter Placement DIAGNOSTIC Daisy 110cm 5 Procedure Fr catheter ([id number]) Procedure Complications No complications Procedure Medications Medication Administration Route Dosage Oxygen etCO2 Nasal cannula 2 l/min Heparin Flush Bag added to field 2 bags (1000units/500ml NS) 0.9% NaCl I.V. 100 ml/hr Radial Cocktail added to field 1 syringe (Verapomil 2mg/Nitro 400mcg/Heparin 1500units) Lidocaine 2% added to field 20 Fentanyl I.V. 50 mcg Versed I.V. 1 mg Fentanyl I.V. 50 mcg Versed I.V. 1 mg Fentanyl I.V. 50 mcg Fentanyl I.V. 50 mcg Heparin Bolus I.V. 5000 units Hemodynamics Rest BSA: 2.7 (m2) HGB: 15.7 (g/dl) O2 Consumption: Estimated: 313.18 (ml/min) O2 Con sumption indexed: Estimated:115.99 (ml/min/m) Heart Rate: 54 (bpm) Snapshots Pre Cath Intra NCS Post Cath Vital Signs Time Heart Resp SPO2 etCO2 NIBP (mmHg) Rhythm Pain Sedation Rate (ipm) (%) (mmHg) Status Level (bpm) 8:32:44 82 16 99 38.9 118/76(94) NSR 0 (11) 10(A) , No pain 8:37:02 85 17 96 32.9 116/74(89) NSR 0 (11) 10(A) , No pain 8:41:16 76 17 95 36.7 114/84(99) NSR 0 (11) 10(A) , No pain 8:45:34 84 16 94 39.6 113/69(84) NSR 0 (11) 10(A) , No pain 8:49:50 83 16 89 44.8 105/74(99) NSR 0 (11) 9(A) , No pain 8:54:04 75 16 91 47.8 119/69(91) NSR 0 (11) 9(A) , No pain 8:58:22 77 17 92 48.6 114/74(101) NSR 0 (11) 9(A) , No pain 9:02:41 78 10 94 0 129/87(110) NSR 0 (11) 9(A) , No pain Medications Time Medication Route Dose Verified Delivered Reason Note s Effectiveness by by 8:31:46 Oxygen etCO2 2 l/min Herman Lamb Per physician Nasal Pradip Braun RN cannula 8:31:54 Heparin Flush added 2 bags Herman Adonis used for Bag to Pradip Braun RN procedure (1000units/500ml field NS) 8:32:03 0.9% NaCl I.V. 100 Herman Adonis Per physician ml/hr Pradip Braun RN 8:32:11 Radial Cocktail added 1 Herman Adonis used for (Verapomil to syringe Pradip Braun RN procedure 2mg/Nitro field 400mcg/Heparin 1500units) 8:32:20 Lidocaine 2% added 20ml Herman Adonis used for to vial Pradip Braun RN procedure field 8:43:08 Fentanyl I.V. 50 mcg Herman Adonis for sedation Pradip Braun RN 8:43:16 Versed I.V. 1 mg Herman Adonis for sedation Pradip Braun RN 8:45:20 Fentanyl I.V. 50 mcg Herman Adonis for sedation Pradip Braun RN 8:45:28 Versed I.V. 1 mg Herman Adonis for sedation Pradip Braun RN 8:47:24 Fentanyl I.V. 50 mcg Herman Adonis for sedation Pradip Braun RN 8:49:40 Fentanyl I.V. 50 mcg Herman Adonis for sedation Pradip Braun RN 8:49:50 Heparin Bolus I.V. 5000 Herman Adonis for units Tauth MD Braun RN anticoagulation Procedure Log Time Note 8:05:44 Hanna Torres RN sent for patient. Start room use. 8:18:33 Patient Height : 77 inches 8:18:41 Patient Weight : 311.65 lbs 8:19:10 Lab Result : BUN 22 mg/dl 8:19:10 Lab Result : Creatinine 1 mg/dl 8:19:10 Lab Result : Hemoglobin 15.7 g/dl 8:19:42 Diagnostic Cath status Elective 8:19:45 Time tracking: Regular hours (M-F 7:00 - 5:00) 8:19:50 Plan of Care:Hemodynamics will remain stable., Cardiac rhythm will remain stable., Comfort level will be maintained., Respiratory function will remain adequate., Patient/ family verbilizes understanding of procedure., Procedure tolerated without complication., Recovers from procedure without complications.. 8:19:56 Patient received from Med II to CCL 3 Alert and oriented. Tansferred to table in Supine position. 8:31:31 Vital chart was started 8:31:46 Oxygen 2 l/min etCO2 Nasal cannula was administered by Adonis Braun RN; Per physician; 8:31:54 Heparin Flush Bag (1000units/500ml NS) 2 bags added to field was administered by Adonis Braun RN; used for procedure; 8:32:03 0.9% NaCl 100 ml/hr I.V. was administered by Adonis Braun RN; Per physician; 8:32:11 Radial Cocktail (Verapomil 2mg/Nitro 400mcg/Heparin 1500units) 1 syringe added to field was administered by Adonis Braun RN; used for procedure; 8:32:20 Lidocaine 2% 20ml vial added to field was administered by Adonis Braun RN; used for procedure; 8:38:11 Warm blankets applied, and ashley hugger turned on for patient comfort. 8:38:12 Correct patient and procedure confirmed by team. 8:38:15 ECG and BP/O2 sat monitors applied to patient. 8:38:17 Signed procedure consent form obtained from patient. 8:38:20 Baseline sample Acquired. 8:38:23 Rhythm: sinus rhythm 8:38:25 Full Disclosure recording started 8:39:59 H&P Date Dictated: 08/04/2018 Within 30 days and on chart.. 8:40:00 Pre-procedure instructions explained to patient. 8:40:00 Pre-op teaching completed and patient verbalized understanding. 8:40:02 Family in patients room. 8:40:03 Patient NPO since Midnight. 8:40:56 Patient allergic to Other allergyCoreg 8:40:59 Is the patient allergic to Iodine/contrast media? No. 8:42:42 Is patient on blood thinner?Yes 8:42:44 ACC The patient was administered the following blood thiners within the last 24 hours: ACCPlavix 8:42:45 Patient diabetic? No. 8:42:47 Previous problem with sedation/anesthesia? No ? 8:42:48 Snore? Yes 8:42:49 Sleep apnea? No 8:42:50 Deviated septum? No 8:42:50 Opens mouth fully? Yes 8:42:51 Sticks out tongue? Yes 8:42:52 Airway obstruction? No ? 8:42:54 Dentures? No ? 8:42:57 Pre procedure: right dorsailis pedis pulse 2+ Normal; easily identifiable; not easily obliterated 8:42:59 Modified Leander's test Ulnar < 7 seconds 8:43:01 Patient pain scale 0/10 ?. 8:43:06 IV patent on arrival in right forearm with 0.9% NaCl at O. 8:43:08 Fentanyl 50 mcg I.V. was administered by Adonis Braun RN; for sedation; 8:43:08 Lab results completed and on chart. 8:43:09 Right Radial & Right Groin area was prepped with chlora-prep and draped in sterile fashion 8:43:10 Alarms reviewed by R. N. 8:43:11 Sharps counted by scrub and verified by R.N. 8:43:13 Use device set Radial Dx or PCI 8:43:14 ACIST Syringe (99063) opened to sterile field. 8:43:15 Medline Cath Pack ([id number]) opened to sterile field. 8:43:15 Bag Decanter (2002) opened to sterile field. 8:43:16 Versed 1 mg I.V. was administered by Adonis Braun RN; for sedation; 8:43:16 ACIST Manifold (51789) opened to sterile field. 8:43:16 ACIST Hand Control (71839) opened to sterile field. 8:43:16 Tegaderm 4 x 4 (1626W) opened to sterile field. 8:43:17 MBrace Wrist Support ([id number]) opened to sterile field. 8:43:17 DIAGNOSTIC WIRE .035 260cm J wire (422408) opened to sterile field. 8:43:18 SHEATH 6FR Slender (37-4048) opened to sterile field. 8:43:25 Physician arrived 8:43:25 --------ALL STOP TIME OUT------ 8:43:26 Final Timeout: patient, procedure, and site verified with staff and physician. All members of the team are in agreement. 8:43:27 Right Radial & Right Groin site verified by team. 8:43:29 Zero performed for pressure channel P1 8:43:34 Maximum allowable Isovue 300 dose 300ml. Physician notified. (300ml for normal creatinines. For patients with creatinine of 1.7 or higher multiply weight(kg) x 5 divided by creatinine.) 8:43:36 Fire Safety Assessment: A--An alcohol-based skin anteseptic being used preoperatively., C--Open oxygen or nitrous oxide is being used., D--An ESU, laser, or fiber-optic light is being used. 8:43:38 Zero performed for pressure channel P1 8:43:45 Physical assessment completed. ASA score P 2 - A patient with mild systemic disease as per Herman Moseley MD. 8:43:47 Sedation plan: IV Moderate Sedation Medication:Versed, Fentanyl 8:44:35 Procedure started. 8:44:39 Local anesthetic to right radial artery with Lidocaine 2% by Herman Moseley MD.INITIAL ACCESS ONLY 8:45:10 A 6 Fr Short sheath was inserted into the Right Radial artery 8:45:15 A DIAGNOSTIC Daisy 110cm 5 Fr catheter ([id number]) was advanced over the wire and used for Procedure. 8:45:17 LV gram done using DUVAL 8:45:19 Injector settings: Ml/sec: 5, Volume: 15, 8:45:20 Fentanyl 50 mcg I.V. was administered by Adonis Braun RN; for sedation; 8:45:22 LV hemodynamics recorded. 8:45:26 EF : 60 % 8:45:28 Versed 1 mg I.V. was administered by Adonis Braun RN; for sedation; 8:45:44 RCA angiography performed. 8:47:24 Fentanyl 50 mcg I.V. was administered by Adonis Braun RN; for sedation; 8:47:57 INFLATOR Merit BasixCompak (VI2425) opened to sterile field. 8:47:57 CHOICE PT Extra Support 182cm wire ([id number]) opened to sterile field. 8:47:58 INFLATOR Merit BasixCompak (VO8635) opened to sterile field. 8:48:04 Catheter exchanged over wire. 8:48:09 6 Fr xblad 3.5 guide catheter was inserted over the wire 8:49:40 Fentanyl 50 mcg I.V. was administered by Adonis Braun RN; for sedation; 8:49:50 Heparin Bolus 5000 units I.V. was administered by Adonis Braun RN; for anticoagulation; 8:50:00 choice pt es wire advanced. 8:50:15 Wire advanced across lesion. 8:50:29 [place] IVUS Catheter (89029N) opened to sterile field. 8:51:58 IVUS catheter advanced over wire. 8:52:02 IVUS pass to LAD lesion performed. 8:52:04 IVUS catheter removed over wire. 8:53:13 Place stent Inflation Number: 1 A ELSIE RX 4.0 x 12 stent ([id number]) was prepped and advanced across the Prox LAD. The stent was deployed at 17 TYREL for 0:10 (min:sec). 8:53:26 Stent catheter was removed intact over wire. 8:54:05 Wire redirected to cx. 8:54:50 Wire advanced across lesion. 8:57:16 Place stent Inflation Number: 1 A ELSIE RX 2.5 x 30 stent ([id number]) was prepped and advanced across the Prox CX. The stent was deployed at 17 TYREL for 0:10 (min:sec). 8:58:43 Stent catheter was removed intact over wire. 8:58:44 Wire removed. 8:58:45 Guide catheter removed. 8:58:47 TR BAND Large ([id number]) opened to sterile field. 8:58:54 Sheath removed intact; hemostasis achieved with Mechanical Compression to the Right Radial artery. 8:58:55 Procedure ended.(Physican Out) 8:59:27 Fluoroscopy time 05.40 minutes. 8:59:32 Flurop Dose total: 663.47 8:59:32 Fluoroscopy dose: 663.47 mGy 8:59:35 Contrast amount:Isovue 300 127ml. 8:59:36 Sharps counted by scrub and verified by R.N. 8:59:38 TR band inflated with 12cc of air. 8:59:39 Insertion/operative site no bleeding no hematoma. 8:59:45 Post right radial artery:stable, soft, clean and dry 8:59:46 Post Procedure Pulses reassessed and unchanged 8:59:48 Post-procedure physical assessment completed. ASA score P 2 - A patient with mild systemic disease as per Herman Moseley MD. 8:59:50 Post procedure rhythm: unchanged. 8:59:52 Estimated blood loss: 10 ml 8:59:54 Post procedure instruction explained to patient.Patient verbalizes understanding. 8:59:54 Patient needs reinforcement of post procedure teaching. 9:00:23 Procedure type changed to Cath procedure, Diagnostic procedure, LHC, LHC w/Coronaries, FFR/IVUS, Intra-Coronary IVUS Initial, Sedation Charges, Moderate Sedation up to 15 minutes, PCI procedure, Coronary Stent, Coronary Stent Initial x2 9:01:02 Procedure and supply charges have been captured, reviewed, submitted and are correct. 9:01:02 Vital chart was stopped 9:01:11 Procedure Complication : No complications 9:01:13 See physician's report for complete and final results. 9:01:29 Report given to Pre/Post Procedure Room. 9:01:31 Patient transfered to Pre/Post Procedure Room with Stretcher. 9:01:33 Procedure ended. 9:01:33 Full Disclosure recording stopped 9:01:37 End room use (Document Last) Intervention Summary Intervention Notes Time ActionType Lesion and Equipment Used Action# Pressure Duration Attributes 8:53:13 Place stent Prox LAD ELSIE RX 4.0 x 1 17 00:10 12 stent ([id number]) 8:57:16 Place stent Prox CX ELSIE RX 2.5 x 1 17 00:10 30 stent ([id number]) Device Usage Item Name Manufacture Quantity Catalog Number Hospital Part Current M inimal Lot# / Charge Number Stock Stock Serial# Code ACIST Syringe Acist 1 64671 049268 418005 058263 2 0 (62619) Medical Systems Inc Medline Cath Medline 1 [id number] 111206 67012 234284 5 Pack ([id number]) Bag Decanter Microtek 1 2001S 423273 19510 649868 5 (2001S) Medical Inc. ACIST Manifold Acist 1 95170 172432 584662 939328 5 (29632) Medical Systems Inc ACIST Hand Acist 1 85827 544048 704363 877249 5 Control Medical (69738) Systems Inc Tegaderm 4 x 4 3M 1 1626W 246401 498433 418237 5 (1626W) MBrace Wrist Advanced 1 140-5000-00 376607 19275 183078 5 Support Vascular ([id number]) Dynamics DIAGNOSTIC St [place] 1 923589 051269 153192 633868 3 0 WIRE .035 260cm J wire (911732) SHEATH 6FR Terumo 1 [id number] 930144 881890 570214 5 Slender (80-1060) DIAGNOSTIC Terumo 1 40-5013 928871 916873 297874 5 Daisy 110cm 5 Fr catheter (892616) INFLATOR Merit Merit 2 HR4621 041374 843377 027980 1 5 NanoBio (WA8528) CHOICE PT [place] 1 [id number] 506610 434426 996944 5 Extra Support Scientific 182cm wire ([id number]) [place] 1 84800Y 076338 389380 192485 8 [place] IVUS Catheter (26693G) DIAGNOSTIC Terumo 1 40-5023 033152 569151 920046 5 Bimal 110cm 5Fr catheter (979025) NEEDLE Easy [employer] Medical 1 F23706 881612 121215 036433 5 21G 4cm Radial (X61302) TR BAND Terumo 1 HKF49-TGO 460417 347660 249991 4 0 Standard ([id number]) ELSIE RX 4.0 x Medtronic 2 [id number] 477028 7258086 276586 5 [id number] 12 stent ([id number]) ELSIE RX 2.5 x Medtronic 1 [id number] 561506 0445069 558580 5 [id number] 30 stent ([id number]) TR BAND Large Terumo 1 [id number] 836667 962395 658198 4 0 ([id number]) Signature Audit [place] Stage Time Signature Unsigned Intra-Procedure 08/05/2018 Roshan Nelson 9:05:24 AM RT(R) Signatures Monitor : Roshan Nelson RT Signature : Date : Time : [id number] [place] [address]
--- NOTE | ~2018-08-04 | HP ---
PATIENT: HEMANTH JUDD MEDICAL RECORD: [id number] ACCOUNT: [id number] LOCATION:[address] : 76 ADMISSION DATE: 08/04/18 PCP: ADELIA BAEZA MD HISTORY AND PHYSICAL EXAMINATION DIAGNOSES: 1. Unstable angina. 2. Coronary artery disease. 3. Previous percutaneous transluminal coronary angioplasty stent. HISTORY OF PRESENT ILLNESS: Mr. Judd has been having episodes of chest pain, chest discomfort compatible with angina over the past few days. He does have a history of coronary artery disease, previous PTCA stent of the circumflex. PHYSICAL EXAMINATION: GENERAL APPEARANCE: Well-nourished, well-developed, appears stated age. Level of distress, comfortable. PSYCHIATRIC: Mental status, alert, normal affect. Orientation, oriented to time, place and person. EYES: Lids and conjunctiva, noninjected. No discharge, no pallor. ENT: Lips, teeth, gums, normal dentition. Oropharynx, no cyanosis, no pallor. NECK: Carotid arteries, bilateral normal upstroke, no bruits, no thrills. JUGULAR VEINS: No jugular venous pressure or distention. CERVICAL LYMPH NODES: Nontender, nonenlarged. THYROID: Not enlarged. Nontender. No nodules. LUNGS: Respiratory effort, unlabored. CHEST: Normal curvature. No thoracic deformity. No chest wall tenderness. Percussion, resonant. Auscultation, clear. No wheezes, no rales, no rhonchi. CARDIOVASCULAR: Precordial exam, nondisplaced. No heaves or pericardial thrills. Rate and rhythm, regular. Heart sounds, normal S1, normal S2. No S3, no gallop, no rub. Systolic murmur, not heard. Diastolic murmur, not heard. EXTREMITIES: No cyanosis, no edema. Peripheral pulses, full and equal in all extremities, except as noted. No bruits appreciated. ABDOMEN: Soft, nondistended. Normal aorta. No bruit. Nontender. No masses. Liver, nontender, no hepatomegaly. Spleen, nontender, no splenomegaly. MUSCULOSKELETAL: No joint tenderness. No joint swelling. No erythema. NEUROLOGICAL: Normal gait, normal strength, normal tone. SKIN: Warm and dry. OVERALL IMPRESSION: Anginal symptomatology in an escalating unstable fashion. We will proceed with coronary angiography. Further care depends upon findings of the angiography. TRANSINT:[id number] Voice Confirmation ID: [id number] DOCUMENT ID: [id number] HISTORY AND PHYSICAL [id number] HEMANTH JUDD JEFFREY MD CC: [id number] DICTATION DATE: 08/05/18443 SERVICE TESTER: 08/05/18 050 ADM IN [facility] [address] [place] [address]
[2018-08-04 18:30] LABS: BASOPHILS 0.2 % (0-2); EOSINOPHILS 1.3 % (0-7); HEMATOCRIT 44.5 % (42.0-54.0); HEMOGLOBIN 15.7 g/dL (13.5-17.5); IMMATURE GRANULOCYTES 0.2 % (0-5); LYMPHOCYTES 30.5 % (15-50); MCHC 35.3 g/dL (31.0-37.0); MCV 87.8 fL (80.0-100.0); MEAN PLATELET VOLUME 10.8 fL (7.4-10.4); MONOCYTES 6.9 % (2-11); NEUTROPHILS 60.9 % (40-80); PLATELET COUNT 200 10x3/uL (130-400); RBC 5.07 10x6/uL (4.20-6.10); RDW 12.6 % (11.5-14.5)
[2018-08-04 18:42] LABS: APTT 30.9 SECONDS (22.8-39.4)
[2018-08-04 18:43] LABS: INR 1.1 (0.85-1.17); PROTIME 13.7 SECONDS (11.6-15.0)
[2018-08-04 18:45] LABS: ALBUMIN 3.7 g/dL (3.4-5.0); ALKALINE PHOSPHATASE 100 U/L (46-116); ALT (SGPT) 96 U/L (10-68); BILIRUBIN - TOTAL 0.81 mg/dL (0.2-1.3); CALC OSMOLALITY 277 mosm/kg (275-300); CALCIUM 8.5 mg/dL (8.5-10.1); CARBON DIOXIDE 24.4 mmol/L (21.0-32.0); CHLORIDE - SERUM 104 mmol/L (98-107); GLUCOSE 93 mg/dL (74-106); PROTEIN - SERUM 7.5 g/dL (6.4-8.2); SODIUM 138 mmol/L (136-145); UREA NITROGEN 19 mg/dL (7-18); eGFR NON AFRICAN AMERICAN 88 mL/min (90-120)
[2018-08-04 18:55] LABS: CKMB 2.6 U/L (0.0-3.6); CREATINE KINASE 274 UL (21-232); TROPONIN-I 0.018 ng/mL (0.000-0.060)
[2018-08-04 19:57] VITALS: BP 120/73
[2018-08-05 00:30] VITALS: BP 101/54
[2018-08-05 00:35] VITALS: BP 101/54; Ht 195.6 cm; Wt 141.4 kg
[2018-08-05 05:00] VITALS: BP 102/66
[2018-08-05 06:43] LABS: CALC OSMOLALITY 278 mosm/kg (275-300); CALCIUM 8.5 mg/dL (8.5-10.1); CARBON DIOXIDE 24.6 mmol/L (21.0-32.0); CHLORIDE - SERUM 104 mmol/L (98-107); CKMB 2.2 U/L (0.0-3.6); CREATINE KINASE 229 UL (21-232); GLUCOSE 104 mg/dL (74-106); SODIUM 138 mmol/L (136-145); TROPONIN-I < 0.017 ng/mL (0.000-0.060); UREA NITROGEN 22 mg/dL (7-18); eGFR NON AFRICAN AMERICAN 88 mL/min (90-120)
[2018-08-05 06:57] LABS: BASOPHILS 0.4 % (0-2); HEMATOCRIT 45.6 % (42.0-54.0); HEMOGLOBIN 15.8 g/dL (13.5-17.5); IMMATURE GRANULOCYTES 0.1 % (0-5); LYMPHOCYTES 34.7 % (15-50); MCH 30.8 pg (26.0-34.0); MCHC 34.6 g/dL (31.0-37.0); MCV 88.9 fL (80.0-100.0); MEAN PLATELET VOLUME 11.3 fL (7.4-10.4); MONOCYTES 8.9 % (2-11); NEUTROPHILS 53.9 % (40-80); PLATELET COUNT 188 10x3/uL (130-400); RBC 5.13 10x6/uL (4.20-6.10); RDW 12.6 % (11.5-14.5); WBC 7.5 10x3/uL (4.8-10.8)
[2018-08-05 08:39] VITALS: BP 142/71
[2018-08-05 13:27] LABS: CHOL - HDL RATIO 4.3 ratio (2.3-4.9); LDL-HDL RATIO 1.8 ratio (1.5-3.5)
== END 2018-08-05 13:15 | disposition home or self-care (01) ==
LOC: D.ER 16:59 → D.CLR 19:21 → D.M2 19:21 → OBSVTIME 19:21 → D.CLR 08-05 09:07
PROVIDERS: Family Medicine; ADMIT Internal Medicine Interventional Cardiology; ATTEND Internal Medicine Interventional Cardiology
DX: I25.110 Atherosclerotic heart disease of native coronary artery with unstable angina pectoris (principal)

== ENCOUNTER 2018-08-08 01:44 | Emergency (ER) | payer MEDICAID ==
[2018-08-08 01:56] VITALS: BMI 36.8
[2018-08-08 02:16] LABS: BASOPHILS 0.2 % (0-2); EOSINOPHILS 1.1 % (0-7); HEMATOCRIT 49.4 % (42.0-54.0); HEMOGLOBIN 17.8 g/dL (13.5-17.5); IMMATURE GRANULOCYTES 0.2 % (0-5); LYMPHOCYTES 33.9 % (15-50); MCH 31.3 pg (26.0-34.0); MEAN PLATELET VOLUME 10.7 fL (7.4-10.4); MONOCYTES 7.9 % (2-11); NEUTROPHILS 56.7 % (40-80); PLATELET COUNT 222 10x3/uL (130-400); RBC 5.68 10x6/uL (4.20-6.10); RDW 12.6 % (11.5-14.5); WBC 13.1 10x3/uL (4.8-10.8)
[2018-08-08 02:30] LABS: ALKALINE PHOSPHATASE 95 U/L (46-116); ALT (SGPT) 111 U/L (10-68); BILIRUBIN - TOTAL 0.94 mg/dL (0.2-1.3); CALC OSMOLALITY 269 mosm/kg (275-300); CALCIUM 8.8 mg/dL (8.5-10.1); CARBON DIOXIDE 22.4 mmol/L (21.0-32.0); CHLORIDE - SERUM 101 mmol/L (98-107); CREATININE - SERUM 0.9 mg/dL (0.6-1.3); GLUCOSE 99 mg/dL (74-106); POTASSIUM - SERUM 4.1 mmol/L (3.5-5.1); PROTEIN - SERUM 8.2 g/dL (6.4-8.2); SODIUM 135 mmol/L (136-145); UREA NITROGEN 12 mg/dL (7-18); eGFR NON AFRICAN AMERICAN > 90 mL/min (90-120)
[2018-08-08 02:34] LABS: INR 1.14 (0.85-1.17); PROTIME 14.1 SECONDS (11.6-15.0)
[2018-08-08 02:35] LABS: APTT 33.3 SECONDS (22.8-39.4)
[2018-08-08 02:47] LABS: CKMB 1.7 U/L (0.0-3.6); CREATINE KINASE 152 UL (21-232); MAGNESIUM - SERUM 2.1 mg/dL (1.8-2.4)
[2018-08-08 02:51] LABS: TROPONIN-I 0.093 ng/mL (0.000-0.060)
[2018-08-08] MEDS ORDERED: ISOSORBIDE MONO30 M1 PO (03:51)
[2018-08-08] MEDS ORDERED: ATIVAN1 MG PO (04:22)
[2018-08-08 04:42] VITALS: BP 115/72
== END 2018-08-08 04:39 | disposition other institution (70) ==
LOC: D.ER 01:44
PROVIDERS: Emergency Medicine
DX: I20.9 Angina pectoris, unspecified (principal)

== ENCOUNTER 2018-12-07 14:47 | Emergency (ER) | payer MEDICAID ==
[~2018-12-07] VITALS: Ht 195.6 cm; Wt 113.6 kg
[~2018-12-07 14:47] MED LIST changes: +ATIVAN1 MG PO; +ISOSORBIDE MONO30 M1 PO
[2018-12-07 14:53] VITALS: Ht 195.6 cm; Wt 113.6 kg
[2018-12-07] MEDS ORDERED: HYDROCODONE-A1 UDTA2 PO (18:27)
[2018-12-07 20:35] VITALS: BP 132/77
== END 2018-12-07 20:36 | disposition home or self-care (01) ==
LOC: D.ER 14:47
DX: S39.012A Strain of muscle, fascia and tendon of lower back, initial encounter (principal); W18.30XA Fall on same level, unspecified, initial encounter; Y93.89 Activity, other specified; Y92.89 Other specified places as the place of occurrence of the external cause; S90.02XA Contusion of left ankle, initial encounter; S63.502A Unspecified sprain of left wrist, initial encounter

== ENCOUNTER 2018-12-16 10:09 | Observation (INO) | payer MEDICAID ==
[~2018-12-16] VITALS: Ht 195.6 cm; Wt 135.5 kg
--- NOTE | ~2018-12-16 | HEMODYNAMI ---
PATIENT:HEMANTH JUDD MEDICAL RECORD: [id number] : 76 LOCATION:[facility] D.[address] [id number] ADMISSION DATE: 12/16/18 Generatedon:12/17/201812:26 Patient name: HEMANTH JUDD Patient #: [id number] : 1980 Date of study: 12/17/2018 Page: Of Hemodynamic Procedure Report Patient Data Patient Demographics Procedure consent was obtained First Name: HEMANTH Gender: Male Last Name: DUTCH : 1980 Middle Initial: J Age: 38 year(s) Patient #: [id number] Race: SSN: [id number] Additional ID: [id number] Contact details Address: [address] [place] [address] State: [place] City: [facility] Zip code: [address] Past Medical History Allergies Allergen Reaction Date Comments Reported Other allergy 01/02/2018 Other allergy 04/04/2018 cOREG Other allergy 08/05/2018 Coreg Admission Admission Data Admission Date: 12/16/2018 Admission Time: 11:54 Arrival Date: 12/17/2018 Arrival Time: 0:00 Admit Source: Emergency Insurance Payor: Medicaid department [facility] #: [id number] [facility] Height (in.): 76.77 BSA: 2.65 (m2) Height (cm.): 195 BMI: 35.77 (kg/m2) Weight (lbs.): 299.83 Weight (kg.): 136 Lab Results Lab Result Date: 12/17/2018 Lab Result Time: 10:30 CBC Name Units Result Min Max Hematocrit % 47.1 --(-*--)-- 42 54 Hemoglobin g/dl 17 --(---*)-- 13.5 17.5 Procedure Procedure Types Cath Procedure Diagnostic Procedure LHC LHC w/Coronaries Procedure Description Procedure Date Procedure Date: 12/17/2018 Procedure Start Time: 11:52 Procedure End Time: 12:06 Procedure Staff Name Function Sundeep Rodriguez RT Monitor Hanna Torres RN Shallot Packer Herman Moseley MD Performing Physician Roshan Nelson RT Scrub Lisa Watson RN Nurse Procedure Data Cath Procedure Fluoroscopy Diagnostic fluoroscopy Total fluoroscopy Time: 0.9 time: 0.9 min min Diagnostic fluoroscopy Total fluoroscopy dose: 765 dose: 765 mGy mGy Contrast Material Contrast Material Type Amount (ml) Isovue 300 65 Entry Location Entry Primary Successful Side Size Upsize Upsize Entry Closure Succes sful Closure Location (Fr) 1 (Fr) 2 (Fr) Remarks Device Remarks Femoral Right 5 Fr Exoseal artery Estimated blood loss: 10 ml Diagnostic catheters Device Type Used For End Catheter Placement MULTIPACK Pigtail 5 Fr Procedure catheter MULTIPACK JL 4.0 5Fr Procedure catheter MULTIPACK 3DRC 5Fr Procedure catheter Procedure Complications No complications Procedure Medications Medication Administration Route Dosage Oxygen etCO2 Nasal cannula 2 l/min Lidocaine 2% added to field 20 Heparin Flush Bag added to field 2 bags (1000units/500ml NS) 0.9% NaCl I.V. 100 ml/hr Versed I.V. 2 mg Fentanyl I.V. 100 mcg Versed I.V. 2 mg Fentanyl I.V. 50 mcg Hemodynamics Rest BSA: 2.65 (m2) HGB: 17 (g/dl) O2 Consumption: Estimated: 321.99 (ml/min) O2 Cons umption indexed: Estimated:121.51 (ml/min/m) Heart Rate: 68 (bpm) Snapshots Pre Cath Intra NCS Post Cath Vital Signs Time Heart Resp SPO2 etCO2 NIBP Rhythm Pain Sedation Rate (ipm) (%) (mmHg) (mmHg) Status Level (bpm) 11:47:00 70 15 100 26.3 112/78(99) NSR 0 (11) 10(A) , No pain 11:51:10 66 12 95 39.1 114/73(92) NSR 0 (11) 10(A) , No pain 11:55:22 72 13 94 39.1 115/71(82) NSR 0 (11) 9(A) , No pain 12:00:21 67 15 93 33.8 117/62(87) NSR 0 (11) 9(A) , No pain 12:04:31 65 15 94 35.3 113/78(90) NSR 0 (11) 10(A) , No pain Medications Time Medication Route Dose Verified Delivered Reason Notes Eff ectiveness by by 11:46:10 Oxygen etCO2 2 Herman Herman used for Nasal l/min Pradip Moseley MD procedure cannula 11:46:33 Lidocaine 2% added 20ml Herman Herman for local to vial Pradip Moseley MD anesthetic field 11:46:41 Heparin Flush added 2 Herman Herman used for Bag to bags Pradip Moseley MD procedure (1000units/500ml field NS) 11:46:50 0.9% NaCl I.V. 100 Herman Buffie Per ml/hr Pradip Torres RN physician 11:50:08 Versed I.V. 2 mg Herman Buffie for Pradip Torres RN sedation 11:50:16 Fentanyl I.V. 100 Herman Buffie for mcg Pradip Torres RN sedation 11:54:35 Versed I.V. 2 mg Herman Buffie for Pradip Torres RN sedation 11:54:39 Fentanyl I.V. 50 Herman Buffie for mcg Pradip Torres RN sedation Procedure Log Time Note 11:00:02 Lisa Watson RN sent for patient. Start room use. 11:08:02 Informed consent obtained and on chart 11:09:25 Admit Source: Emergency department 11:09:39 Arrival Date: 12/17/2018 12:00:00 AM 11:09:43 Insurance Payor : Medicaid 11:09:53 Patient Height : 76.77 inches 11:09:56 Patient Weight : 299.83 lbs 11:11:59 Lab Result : Hematocrit 47.1 % 11:11:59 Lab Result : Hemoglobin 17 g/dl 11:12:34 ACC Patient presents with Unstable Angina CCS Anginal Class 4--Inability to carry out any physical activity w/o angina. Angina may occur at rest. 11:13:01 Procedure Status Urgent Heart Cath (IP). 11:13:03 Time tracking: Regular hours (M-F 7:00 - 5:00) 11:13:08 Plan of Care:Hemodynamics will remain stable., Cardiac rhythm will remain stable., Comfort level will be maintained., Respiratory function will remain adequate., Patient/ family verbilizes understanding of procedure., Procedure tolerated without complication., Recovers from procedure without complications.. 11:13:25 Patient received from Med II to [facility] 2 Alert and oriented. Tansferred to table in Supine position. 11:13:26 ECG and BP/O2 sat monitors applied to patient. 11:13:26 Correct patient and procedure confirmed by team. 11:13:26 Warm blankets applied, and ashley hugger turned on for patient comfort. 11:20:41 Baseline sample Acquired. 11:20:44 Rhythm: sinus rhythm 11:20:46 Full Disclosure recording started 11:23:24 H&P Date Dictated: 12/16/2018 Within 30 days and on chart.. 11:23:25 Pre-procedure instructions explained to patient. 11:23:26 Pre-op teaching completed and patient verbalized understanding. 11:23:29 Family in patients room. 11:23:30 Patient NPO since Midnight. 11:23:32 Is the patient allergic to Iodine/contrast media? No. 11:23:34 Is patient on blood thinner?Yes 11:23:36 ACC The patient was administered the following blood thiners within the last 24 hours: ACCPlavix 11:23:38 Patient diabetic? No. 11:28:04 Previous problem with sedation/anesthesia? No ? 11:28:05 Snore? Yes 11:28:06 Sleep apnea? No 11:28:07 Deviated septum? No 11:28:08 Opens mouth fully? Yes 11:28:09 Sticks out tongue? Yes 11:28:12 Airway obstruction? No ? 11:28:14 Dentures? No ? 11:28:22 Pre procedure: right dorsailis pedis pulse 1+ Palpable, but thready & weak; easily obliterated 11:28:24 Modified Leander's test Ulnar < 7 seconds 11:28:29 Patient pain scale 0/10 ?. 11:28:32 Lab results completed and on chart. 11:28:41 Right Radial & Right Groin area was prepped with chlora-prep and draped in sterile fashion 11:28:42 Sharps counted by scrub and verified by R.N. 11:28:42 Alarms reviewed by R. N. 11:29:20 IV right wrist, attempting to resite IV for radial access. 11:45:48 Unable to relocate IV from right wrist, proceeding with femoral approach. 11:45:58 Vital chart was started 11:46:03 IV patent on arrival in right wrist with 0.9% NaCl at KVO. 11:46:10 Oxygen 2 l/min etCO2 Nasal cannula was administered by Herman Moseley MD; used for procedure; 11:46:12 Use device set Femoral Dx 11:46:13 Tegaderm 4 x 4 ([id number]) opened to sterile field. 11:46:15 ACIST Hand Control (65472) opened to sterile field. 11:46:15 ACIST Manifold (63000) opened to sterile field. 11:46:17 Medline Cath Pack ([id number]) opened to sterile field. 11:46:17 Bag Decanter (2002S) opened to sterile field. 11:46:17 ACIST Syringe (28594) opened to sterile field. 11:46:20 DIAGNOSTIC Multipack 5Fr catheter set (CY0571) opened to sterile field. 11:46:22 SHEATH 5FR Lincoln (YFN949) opened to sterile field. 11:46:23 EMERALD Guide Wire (137-547) opened to sterile field. 11:46:33 Lidocaine 2% 20ml vial added to field was administered by Herman Moseley MD; for local anesthetic; 11:46:41 Heparin Flush Bag (1000units/500ml NS) 2 bags added to field was administered by Herman Moseley MD; used for procedure; 11:46:50 0.9% NaCl 100 ml/hr I.V. was administered by Hanna Torres RN; Per physician; 11:49:31 Final Timeout: patient, procedure, and site verified with staff and physician. All members of the team are in agreement. 11:49:31 --------ALL STOP TIME OUT------ 11:49:37 Right groin site verified by team. 11:49:42 Fire Safety Assessment: A--An alcohol-based skin anteseptic being used preoperatively., C--Open oxygen or nitrous oxide is being used., D--An ESU, laser, or fiber-optic light is being used. 11:49:47 Physical assessment completed. ASA score P 2 - A patient with mild systemic disease as per Herman Moesley MD. 11:49:50 2) 60-89 Mildly reduced kidney function, and other findings (as for stage 1) point to kidney disease. 11:49:53 Maximum allowable contrast dose (3.7 X eGFR X 0.75)244 ml. 11:49:56 Sedation plan: IV Moderate Sedation Medication:Versed, Fentanyl 11:50:08 Versed 2 mg I.V. was administered by Hanna Torres RN; for sedation; 11:50:16 Fentanyl 100 mcg I.V. was administered by Hanna Torres RN; for sedation; 11:52:32 Use device set TAUALYSE PCI 11:52:44 Procedure started. 11:52:48 Local anesthetic to right femoral artery with Lidocaine 2% by Herman Moseley MD.INITIAL ACCESS ONLY 11:54:00 A 5 Fr sheath was inserted into the Right Femoral artery 11:54:18 A MULTIPACK Pigtail 5 Fr catheter was advanced over the wire and used for Procedure. 11:54:29 LV angiography performed. 11:54:31 LV gram done using DUVAL 11:54:35 Versed 2 mg I.V. was administered by Hanna Torres RN; for sedation; 11:54:35 EF : 35 % 11:54:38 LV hemodynamics recorded. 11:54:39 Fentanyl 50 mcg I.V. was administered by Hanna Torres RN; for sedation; 11:54:55 Injector settings: Ml/sec: 10, Volume: 20, 11:55:00 Catheter removed. 11:55:06 A MULTIPACK JL 4.0 5Fr catheter was advanced over the wire and used for Procedure. 11:55:24 LCA angiography performed. 11:56:13 Catheter removed. 11:56:45 A MULTIPACK 3DRC 5Fr catheter was advanced over the wire and used for Procedure. 11:56:55 RCA angiography performed. 11:57:02 Catheter removed. 11:57:22 EXOSEAL 5Fr (EX500) opened to sterile field. 11:57:42 Sheath removed intact; hemostasis achieved with Exoseal to the Right Femoral artery. 11:57:44 Procedure ended.(Physican Out) 11:58:12 Fluoroscopy time 00.90 minutes. 11:58:16 Fluoroscopy dose: 765 mGy 11:58:16 Flurop Dose total: 765 11:58:29 Dose Area Product 27383 mGy/cm. 11:58:34 Contrast amount:Isovue 300 65ml. 11:58:37 Maximum allowable dose exceeded? No. 11:58:39 Sharps counted by scrub and verified by R.N. 12:01:19 Insertion/operative site no bleeding no hematoma. 12:01:21 Post-op/insertion site Right Femoral artery dressed using a 4 x 4 and Tegaderm. 12:01:22 Post Procedure Pulses reassessed and unchanged 12:01:25 Post-procedure physical assessment completed. ASA score P 2 - A patient with mild systemic disease as per Herman Moseley MD. 12:01:27 Post procedure rhythm: unchanged. 12:01:29 Estimated blood loss: 10 ml 12:01:30 Post procedure instruction explained to patient.Patient verbalizes understanding. 12:01:31 Patient needs reinforcement of post procedure teaching. 12:05:32 Procedure and supply charges have been captured, reviewed, submitted and are correct. 12:05:49 Procedure Complication : No complications 12:05:54 See physician's report for complete and final results. 12:05:54 Vital chart was stopped 12:06:03 Report given to PCU. 12:06:07 Patient transfered to PCU with Bed. 12:06:10 Full Disclosure recording stopped 12:06:10 Procedure ended. 12:06:13 End room use (Document Last) Device Usage Item Name Manufacture Quantity Catalog Hospital Part Current Minimal L ot# / Number Charge Number Stock Stock Serial# Code Tegaderm 4 3M 1 1626W 456259 851673 325137 5 x 4 (1626W) ACIST Acist 1 27474 532341 920100 267617 5 Manifold Medical (77567) Systems Inc ACIST Hand Acist 1 67043 709188 257828 556747 5 Control Medical (53479) Systems Inc ACIST Acist 1 07390 713202 737448 727393 20 Syringe Medical (16453) Systems Inc Bag Microtek 1 2001S 399256 54548 277574 5 Decanter Medical Inc. () Medline Medline 1 [id number] 973204 04978 252888 5 Cath Pack ([id number]) DIAGNOSTIC Cardinal 1 ZS0030 186112 28642 460636 30 RBM Technologies 5Fr catheter set (NS0787) SHEATH 5FR Terumo 1 PTA015 671765 983111 471893 5 Lincoln (BKS629) EMERALD Cardinal 1 502-455 274219 367178 282070 5 Guide Wire [facility] (320-952) MULTIPACK Cardinal 1 861437 5 Pigtail 5 Health Fr catheter MULTIPACK Cardinal 1 442203 5 JL 4.0 5Fr Health catheter MULTIPACK Cardinal 1 798373 5 3DRC 5Fr Health catheter EXOSEAL 5Fr Cardinal 1 EX500 096556 723116 349125 10 (EX500) Health Signature Audit L[place]o Stage Time Signature Unsigned Intra-Procedure 12/17/2018 Sundeep Rodriguez RT(R) 12:06:36 PM RT(R) 12/17/2018 12:25:34 PM Intra-Procedure 12/17/2018 Sundeep Rodriguez 12:26:20 PM RT(R) Signatures Monitor : Sundeep Rodriguez RT Signature : Date : Time : Performing Physician : Signature : Herman Moseley MD Date : Time : Nurse : Lisa Watson RN Signature : Date : Time : [address] [address]
[~2018-12-16 10:09] MED LIST changes: +HYDROCODONE-A1 UDTA2 PO
[2018-12-16 10:31] VITALS: BP 119/81
--- NOTE | 2018-12-16 10:43 | NUR ---
PT STATES CHEST DISCOMFORT 5-7/10 PRIOR TO FIRST SL NITRO TABLET.
--- NOTE | 2018-12-16 10:54 | NUR ---
PT STATES HE HAD A HEADACHE PRIOR TO SL NITRO, AND THAT HIS CP REMAINS UNCHANGED FOLLOWING NITRO. EDP NOTIFIED.
[2018-12-16 10:57] LABS: ALBUMIN 3.5 g/dL (3.4-5.0); ALKALINE PHOSPHATASE 91 U/L (46-116); ALT (SGPT) 147 U/L (10-68); BILIRUBIN - TOTAL 0.84 mg/dL (0.2-1.3); CALC OSMOLALITY 277 mosm/kg (275-300); CALCIUM 8.7 mg/dL (8.5-10.1); CARBON DIOXIDE 26.8 mmol/L (21.0-32.0); CHLORIDE - SERUM 103 mmol/L (98-107); GLUCOSE 116 mg/dL (74-106); POTASSIUM - SERUM 4.2 mmol/L (3.5-5.1); PROTEIN - SERUM 7.1 g/dL (6.4-8.2); SODIUM 138 mmol/L (136-145); UREA NITROGEN 14 mg/dL (7-18); eGFR NON AFRICAN AMERICAN 88 mL/min (90-120)
[2018-12-16 11:01] VITALS: BP 115/58
[2018-12-16 11:02] LABS: BASOPHILS 0.4 % (0-2); EOSINOPHILS 1.1 % (0-7); HEMATOCRIT 47.1 % (42.0-54.0); IMMATURE GRANULOCYTES 0.3 % (0-5); LYMPHOCYTES 31.6 % (15-50); MCH 32.4 pg (26.0-34.0); MCHC 36.1 g/dL (31.0-37.0); MCV 89.7 fL (80.0-100.0); MEAN PLATELET VOLUME 10.7 fL (7.4-10.4); MONOCYTES 7.2 % (2-11); NEUTROPHILS 59.4 % (40-80); RBC 5.25 10x6/uL (4.20-6.10); WBC 7.4 10x3/uL (4.8-10.8)
[2018-12-16 11:03] LABS: PLATELET COUNT 172 10x3/uL (130-400)
[2018-12-16 11:06] LABS: CKMB 2.7 U/L (0.0-3.6); CREATINE KINASE 188 UL (21-232); MAGNESIUM - SERUM 1.8 mg/dL (1.8-2.4); TROPONIN-I < 0.017 ng/mL (0.000-0.060)
[2018-12-16 11:12] LABS: INR 1.04 (0.85-1.17); PROTIME 13.1 SECONDS (11.6-15.0)
[2018-12-16 12:01] VITALS: BP 81/39
--- NOTE | 2018-12-16 12:08 | NUR ---
DR. BAEZA AT THE BEDSIDE TO SPEAK WITH PT AT THIS TIME.
[2018-12-16 12:17] VITALS: BP 110/66
--- NOTE | 2018-12-16 12:38 | NUR ---
RECIVED FROM ER TO ROOM 2113. ADMIT ASSESSMENT PER RN
[2018-12-16 13:00] VITALS: BP 100/61; Ht 195.6 cm; Wt 135.5 kg
--- NOTE | 2018-12-16 18:02 | NUR ---
WITHOUT CHANGES OR DISTRESS NOTED AT THIS TIME. DENIES NEEDS
--- NOTE | 2018-12-16 19:23 | NUR ---
BEDSIDE REPORT RECEIVED. PATIENT IS AAO X 4. RESPIRATIONS ARE EVEN AND UNLABORED. NO S/S OF DISTRESS. NO C/O PAIN. CALL LIGHT WITHIN REACH. WILL CPOC.
[2018-12-16 20:00] VITALS: BP 100/55
[2018-12-17] VITALS: BP 94/54
--- NOTE | 2018-12-17 02:50 | NUR ---
IV IN LEFT HAND INFILTARATED. NEW IV STARTED IN 20G RIGHT WRIST
[2018-12-17 04:00] VITALS: BP 90/48
[2018-12-17 06:53] LABS: BASOPHILS 0.4 % (0-2); EOSINOPHILS 2.3 % (0-7); HEMATOCRIT 46.8 % (42.0-54.0); HEMOGLOBIN 16.3 g/dL (13.5-17.5); IMMATURE GRANULOCYTES 0.1 % (0-5); MCH 31.7 pg (26.0-34.0); MCHC 34.8 g/dL (31.0-37.0); MCV 91.1 fL (80.0-100.0); MEAN PLATELET VOLUME 11.1 fL (7.4-10.4); MONOCYTES 8.7 % (2-11); NEUTROPHILS 52.5 % (40-80); PLATELET COUNT 174 10x3/uL (130-400); RBC 5.14 10x6/uL (4.20-6.10); RDW 13.2 % (11.5-14.5)
[2018-12-17 07:02] LABS: CALC OSMOLALITY 278 mosm/kg (275-300); CALCIUM 8.3 mg/dL (8.5-10.1); CARBON DIOXIDE 31.4 mmol/L (21.0-32.0); CHLORIDE - SERUM 104 mmol/L (98-107); CREATININE - SERUM 1.1 mg/dL (0.6-1.3); GLUCOSE 90 mg/dL (74-106); SODIUM 139 mmol/L (136-145); UREA NITROGEN 15 mg/dL (7-18); eGFR NON AFRICAN AMERICAN 79 mL/min (90-120)
[2018-12-17 07:05] LABS: POTASSIUM - SERUM 5.4 mmol/L (3.5-5.1)
[2018-12-17 09:38] VITALS: BP 97/50
--- NOTE | 2018-12-17 11:10 | NUR ---
PRE-OPS GIVEN, TO ZIGZAG STITCHER BY BED.
--- NOTE | 2018-12-17 12:00 | HP ---
PATIENT: HEMANTH LOVE MEDICAL RECORD: [id number] ACCOUNT: [id number] LOCATION:[address] : [birth year] ADMISSION DATE: 12/16/18 PCP: SYLVAIN HAMMOND HISTORY AND PHYSICAL EXAMINATION ADMITTING DIAGNOSES: 1. Unstable angina. 2. Syncope. 3. Coronary artery disease. 4. Previous multivessel percutaneous transluminal coronary angioplasty stent. 5. Ischemic cardiomyopathy. 6. Shortness of breath, dyspnea on exertion. 7. Hypertension. 8. Hyperlipidemia. HISTORY OF PRESENT ILLNESS: Mr. Love is well known to us with past history of a myocardial infarction requiring CPR and multiple defibrillations in December of last year. He underwent successful PTCA stent of the circumflex and LAD. Since then, he has had repeat interventions in March and July on the circumflex. He as well has concomitant disease of the RCA. For the past 2 days, he has had increasing episodes of chest discomfort, chest pain to a class IV symptomatology with episodes of rest pain. He had severe chest pain today associated with syncope. He has not had any further dysrhythmias that have been known since the myocardial infarction in December. He is with a heart rate in the 70s and a systolic blood pressure 110-120s. PHYSICAL EXAMINATION: CONSTITUTIONAL/GENERAL APPEARANCE: Well nourished, well developed, appears stated age. EYES: Lids and conjunctivae noninjected. No discharge. No pallor. ENT: Lips within normal limit. No cyanosis. No pallor. NECK: Carotid arteries, bilateral normal upstroke. No bruits. No thrills. No jugular venous pressure or distention. CERVICAL LYMPH NODES: Nontender. Nonenlarged. THYROID: Not enlarged. No nodules. CARDIOVASCULAR: Precordial exam, nondisplaced. No heaves or pericardial thrills. Rate and rhythm, regular. Heart sounds, normal S1, normal S2. No S3, no gallop, no rub. Systolic murmur, not heard. Diastolic murmur, not heard. RESPIRATORY: Respiratory effort, unlabored. Normal curvature. No thoracic deformity. No chest wall tenderness. Percussion, resonant. Auscultation, clear. No wheezes, no rales, no rhonchi. ABDOMEN: Soft, nondistended, nontender. No abdominal pain, no vomiting and normal appetite. MUSCULOSKELETAL: No joint tenderness, normal gait, normal tone. SKIN: Warm and dry. OVERALL IMPRESSION: Class IV anginal symptomatology. We will add a nitro patch to him, but he is on optimal medical management due to his heart rate and blood pressure. We will proceed with coronary angiography in the a.m. Further care depends upon findings of the angiography. TRANSINT:[id number] Voice Confirmation ID: [id number] DOCUMENT ID: [id number] HISTORY AND PHYSICAL [id number] HEMANTH LOVE, ADELIA LEMOS at 1200 CC: [id number] DICTATION DATE: 12/16/18 1218 ANIMAL CARE TECHNICIAN: 12/16/18 1228 ADM IN [facility] [address] [id number]
--- NOTE | 2018-12-17 12:28 | NUR ---
BACK FROM HEADLIGHT ASSEMBLER. VS WNL. RIGHT GROIN STABLE WITHOUT BLEEDING OR HEMATOMA NOTED. WILL MONITOR.
--- NOTE | 2018-12-17 14:00 | NUR ---
BED REST UP. GROIN STABLE. IV AND TELEMETRY DCD. UNDERSTANDING VOICED.
--- NOTE | 2018-12-18 07:36 | MORECARE ---
CASE MANAGEMENT DISCHARGE SUMMARY PATIENT: HEMANTH JUDD UNIT: [id number] ADM DATE: 12/16/18 AGE: 38 : [birth year] SEX: M ROOM/BED: D.2114 AUTHOR: MALLIKA GAELAS PHYSICIAN: REFERRING PHYSICIAN: ADELIA BAEZA MD DATE OF SERVICE: 12/18/18 Discharge Plan Patient Name: [facility]EMANTH JUDD [facility] [facility] 1980 Planned Disposition: Home Anticipated Discharge Date: 12/17/18 Discharge Date: 12/17/2018 Expected LOS: 1 Initial Reviewer: [email or web address] Initial Review Date: 12/18/2018 Generated: 12/18/18 8:36 am Patient Name: HEMANTH JUDD Page [phone] at 0736 All edits/amendments must be made on the electronic document DICTATION DATE: 12/18/18 0736 POWER CHISEL OPERATOR: JORGE 12/18/18 0736 RPT#: [id number] DC DATE:12/17/18 STATUS: DIS IN [facility] [address] [place] [address] END OF REPORT
--- NOTE | 2018-12-23 14:31 | OP ---
PATIENT NAME: HEMANTH JUDD MEDICAL RECORD: [id number] :[birth year] LOCATION:D.M2 D.2114 ADMISSION DATE:12/16/18 SURGEON: ADELIA BAEZA MD DATE OF OPERATION: 12/17/2018 PROCEDURES: 1. Left heart catheterization. 2. Selective coronary angiography. 3. Left ventriculogram. INDICATION: Angina and coronary artery disease. PROCEDURE IN DETAIL: After informed consent was obtained and after a detailed description of risks, benefits as well as alternative therapies, the patient elected to proceed with angiogram and heart catheterization. The right femoral area was prepped and draped in normal sterile fashion. Right femoral artery was cannulated via modified Seldinger technique with placement of 5-Peruvian sheath. All catheters exchanged through this sheath. FINDINGS: Left ventriculogram in standard 30-degree DUVAL view reveals global hypokinesis, ejection fraction 35%, but unchanged from previous angiography. SELECTIVE CORONARY ANGIOGRAPHY: 1. Left main showed no significant angiographic disease. 2. Left anterior descending has previously placed stents, these are widely patent with no significant restenosis. No disease elsewise throughout the LAD or its branches. 3. Left circumflex has previously placed stents, these are widely patent with no significant restenosis. No disease elsewise throughout the left circumflex or its branches. 4. Right coronary artery is small, nondominant, no significant disease. OVERALL IMPRESSION: Wide patency of the previously placed stents, no disease elsewise, ischemic cardiomyopathy. Center medical management on treatment of the cardiomyopathy. TRANSINT:[id number] Voice Confirmation ID: [id number] DOCUMENT ID: [id number] ADELIA BAEZA MD at 1431 CC: [id number] DICTATION DATE: 12/17/18 1202 BROACHING MACHINE OPERATOR: 12/17/18 1226 DIS IN 12/17/18 [address] [place] [address]
--- NOTE | 2018-12-23 14:31 | EC ---
PATIENT:HEMANTH JUDD DATE OF SERVICE: 12/16/18 SEX: M MEDICAL RECORD: [id number] DATE OF : [birth year] LOCATION:D.M2 D.211 AGE OF PATIENT: 38 ADMISSION DATE: 12/16/18 REFERRING PHYSICIAN: INTERPRETING PHYSICIAN: ADELIA MOSELEY MD ECHOCARDIOGRAM REPORT ECHO CHARGES 4 ECHO COMPLETE Date: 12/16/18 CLINICAL DIAGNOSIS: DIALTED CARDIOMYOPATHY HX CAD ECHOCARDIOGRAPHIC MEASUREMENTS (adult normal given) AC root (d.<3.7cm) 3.5 cm LV Septum d (<1.2 cm> 1.5 cm Valve Excursion 1.9 cm LV Septum (systole) 2.1 cm Left Atria (s.<4.0cm> 4.2 cm LVPW d(<1.2cm) 1.8 cm RV (d.<2.3cm) 4.0 cm LVPW (sytole) 2.0 cm LV diastole(<5.6CM) 6.4 cm MV E-F(>70mm/sec) cm LV systole 4.4 cm LVOT Diameter 2.4 cm MV exc.(>10mm) 1.9 cm Est.ejection fraction (50-75%) % DOPPLER: LVIT cm/sec A 63.0 cm/sec E 94.0 cm/sec LA cm/sec RVSP 20 mmHg LVOT 112 cm/sec AOP1/2T m/s Asc. Ao 13 cm/sec RVOT 95 cm/sec RA cm/sec PA 135 cm/sec AV Gradient Peak 6.86 mmHg AV Mean 3.64 mmHg AV Area 3.6 cm MV Gradient Peak 3.88 mmHg MV Mean 1.32 mmHg MV Area cm COMMENTS: Ground Crew Lines Person: 2 DAGMAR GARCIA Lehr Stripper: 1 Dr. Moseley TAPE# PACS Pericardial Effusion N DATE OF SERVICE: FINDINGS: 1. Left ventricular chamber size is mildly dilated. Left ventricular systolic function is moderately reduced at 35%. 2. Left atrium is enlarged at 4.2 cm. Right atrium and right ventricular chamber size is as well mildly dilated. 3. Valvular structures have normal structure and motion. 4. Doppler interrogation reveals only mild tricuspid regurgitation, no other valvular insufficiency or stenosis. Pulmonary systolic pressure is normal ECHOCARDIOGRAM REPORT [id number] HEMANTH JUDD estimated at 20 mmHg. 5. No evidence of pericardial effusion or left ventricular thrombus. TRANSINT:[id number] Voice Confirmation ID: [id number] DOCUMENT ID: [id number] ADELIA MOSELEY MD at 1431 CC: [id number] DICTATION DATE: 12/17/18 1217 KNOCKER OUT: 12/17/18 1235 DIS IN 12/17/18 [facility] [address] [id number]
== END 2018-12-17 14:44 | disposition home or self-care (01) ==
LOC: D.ER 10:09 → D.M2 11:37 → OBSVTIME 11:37 → D.ER 11:54 → D.M2 11:54 → D.SDCHOLD 14:35 → D.M2 14:35
PROVIDERS: Family Medicine; ADMIT Internal Medicine Interventional Cardiology; ATTEND Internal Medicine Interventional Cardiology
DX: I25.110 Atherosclerotic heart disease of native coronary artery with unstable angina pectoris (principal); R55 Syncope and collapse; Z95.5 Presence of coronary angioplasty implant and graft; R06.02 Shortness of breath; I10 Essential (primary) hypertension; E78.5 Hyperlipidemia, unspecified; I25.5 Ischemic cardiomyopathy

== ENCOUNTER 2019-02-13 22:21 | Inpatient (IN) | payer MEDICAID ==
[~2019-02-13] VITALS: Ht 195.6 cm; Wt 144.1 kg
--- NOTE | ~2019-02-13 | HEMODYNAMI ---
PATIENT:HEMANTH JUDD MEDICAL RECORD: [id number] : 76 [id number] ADMISSION DATE: 02/14/19 Generatedon:02/15/201916:30 Patient name: HEMANTH JUDD Patient #: [id number] : 1980 Date of study: 02/15/2019 Page: Of Hemodynamic Procedure Report Patient Data Patient Demographics Procedure consent was obtained First Name: HEMANTH Gender: Male Last Name: DUTCH : 1980 Middle Initial: J Age: 38 year(s) Patient #: [id number] Race: SSN: [id number] Additional ID: [id number] Contact details Address: [address] [place] [address] State: [place] City: [facility] Zip code: [address] Past Medical History Allergies Allergen Reaction Date Comments Reported Other allergy 01/02/2018 Other allergy 04/04/2018 cOREG Other allergy 08/05/2018 Coreg Other allergy 02/15/2019 carvedilol Admission Admission Data Admission Date: 02/14/2019 Admission Time: 15:13 Arrival Date: 02/15/2019 Arrival Time: 0:00 Room #: D.2118 Insurance Payor: Medicaid [facility] #: [id number] Height (in.): 77.17 BSA: 2.73 (m2) Height (cm.): 196 BMI: 37.48 (kg/m2) Weight (lbs.): 317.47 Weight (kg.): 144 Lab Results Lab Result Date: 02/15/2019 Lab Result Time: 0:00 Biochemistry Name Units Result Min Max BUN mg/dl 17 --(---*)-- 7 18 Creatinine mg/dl 0.9 --(-*--)-- 0.6 1.3 eGFR ml/min 90 --(*---)-- 90 120 NONAFRICAN CBC Name Units Result Min Max Hemoglobin g/dl 16 --(--*-)-- 13.5 17.5 Procedure Procedure Types Cath Procedure Diagnostic Procedure [facility] w/Coronaries FFR/IVUS FFR Initial Sedation Charges Moderate Sedation up to 15 minutes PCI Procedure Coronary Stent Coronary Stent Initial Procedure Description Procedure Date Procedure Date: 02/15/2019 Procedure Start Time: 16:05 Procedure End Time: 16:28 Procedure Staff Name Function Herman Moseley MD Performing Physician Kelly Rey RT Monitor Becca Aly RT Monitor Hanna Torres RN Nurse Marine Vazquez RT Scrub Indication CAD Procedure Data Cath Procedure Fluoroscopy Diagnostic fluoroscopy Total fluoroscopy Time: 5.5 time: 5.5 min min Diagnostic fluoroscopy Total fluoroscopy dose: dose: 1246 mGy 1246 mGy Contrast Material Contrast Material Type Amount (ml) Isovue 300 96 Entry Location Entry Primary Successful Side Size Upsize Upsize Entry Closure Padron ccessful Closure Location (Fr) 1 (Fr) 2 (Fr) Remarks Device Remarks Radial Right 6 Fr Mechanical artery Short Compression Estimated blood loss: 10 ml Diagnostic catheters Device Type Used For End Catheter Placement DIAGNOSTIC Thousandsticks 110cm 5 Procedure Fr catheter ([id number]) Procedure Complications No complications Procedure Medications Medication Administration Route Dosage Oxygen etCO2 Nasal cannula 2 l/min Lidocaine 2% added to field 20 Heparin Flush Bag added to field 2 bags (1000units/500ml NS) 0.9% NaCl I.V. 100 ml/hr Radial Cocktail I.A. 1 syringe (Verapamil 2mg/Nitro 400mcg/Heparin 1500units) Versed I.V. 2 mg Fentanyl I.V. 100 mcg Versed I.V. 2 mg Fentanyl I.V. 100 mcg Versed I.V. 2 mg Fentanyl I.V. 100 mcg Heparin Bolus I.V. 4000 units Versed I.V. 2 mg Hemodynamics Rest BSA: 2.73 (m2) HGB: 16 (g/dl) O2 Consumption: Estimated: 340.68 (ml/min) O2 Cons umption indexed: Estimated:124.79 (ml/min/m) Heart Rate: 77 (bpm) Snapshots Pre Cath Intra NCS Post Cath Vital Signs Time Heart Resp SPO2 etCO2 NIBP (mmHg) Rhythm Pain Sedation Rate (ipm) (%) (mmHg) Status Level (bpm) 15:56:29 75 23 98 0 128/91(106) NSR 0 (11) 10(A) , No pain 16:00:43 73 11 94 0 129/83(98) NSR 0 (11) 10(A) , No pain 16:04:59 77 16 94 0 133/87(104) NSR 0 (11) 10(A) , No pain 16:09:15 93 19 92 0 101/68(89) NSR 0 (11) 9(A) , No pain 16:13:31 75 15 95 0 94/59(82) NSR 0 (11) 9(A) , No pain 16:17:45 83 17 92 0 101/53(76) NSR 0 (11) 9(A) , No pain 16:21:59 82 19 92 0 108/59(88) NSR 0 (11) 10(A) , No pain 16:26:17 85 11 92 0 109/60(88) NSR 0 (11) 10(A) , No pain Medications Time Medication Route Dose Verified Delivered Reason Not es Effectiveness by by 15:55:32 Oxygen etCO2 2 l/min Herman Buffie used for Nasal Pradip Torres RN procedure cannula 15:55:38 Lidocaine 2% added 20ml Herman Herman for local to vial Pradip Moseley MD anesthetic field 15:55:44 Heparin Flush added 2 bags Hermanleighton Sutton used for Bag to Pradip Moseley MD procedure (1000units/500ml field NS) 15:55:53 0.9% NaCl I.V. 100 Herman Buffie Per physician ml/hr Pradip Torres RN 15:56:04 Radial Cocktail I.A. 1 Hermanleighton Sutton for (Verapamil syringe Pradip Moseley MD vasodilation 2mg/Nitro 400mcg/Heparin 1500units) 16:03:00 Versed I.V. 2 mg Herman Buffie for sedation Pradip Torres RN 16:03:06 Fentanyl I.V. 100 mcg Herman Buffie for sedation Pradip Torres RN 16:08:29 Versed I.V. 2 mg Herman Buffie for sedation Pradip Torres RN 16:08:32 Fentanyl I.V. 100 mcg Herman Buffie for sedation Pradip Torres RN 16:14:45 Versed I.V. 2 mg Herman Buffie for sedation Pradip Torres RN 16:14:48 Fentanyl I.V. 100 mcg Herman Buffie for sedation Pradip Torres RN 16:18:01 Heparin Bolus I.V. 4000 Herman Ferreira for rubin ified units Pradip Torres RN anticoagulation with dr moseley 16:19:17 Versed I.V. 2 mg Herman Ferreira for sedation Pradip Torres RN Procedure Log Time Note 15:33:10 Informed consent obtained and on chart 15:33:25 Diagnostic Cath Status : Urgent 15:34:07 Indication : CAD 15:34:18 Procedure Status Urgent Heart Cath (IP). 15:34:21 Kelly Rey RT(R) sent for patient. Start room use. 15:34:23 Time tracking: Regular hours (M-F 7:00 - 5:00) 15:34:29 Plan of Care:Hemodynamics will remain stable., Cardiac rhythm will remain stable., Comfort level will be maintained., Respiratory function will remain adequate., Patient/ family verbilizes understanding of procedure., Procedure tolerated without complication., Recovers from procedure without complications.. 15:34:34 ACC Patient presents with Stable Angina CCS Anginal Class 3--Marked limitation of physical activity, angina occurs with ordinary activity.. 15:35:32 ACCPatient has been prescribed/administered the following anti-anginal medication within the last 2 weeks: ROGERS-Inhibitor 15:39:32 Lab Result : eGFR NONAFRICAN 90 ml/min 15:39:32 Lab Result : Hemoglobin 16 g/dl 15:39:32 Lab Result : BUN 17 mg/dl 15:39:32 Lab Result : Creatinine 0.9 mg/dl 15:40:58 Arrival Date: 02/15/2019 12:00:00 AM 15:41:14 Insurance Payor : Medicaid 15:41:22 Patient Height : 77.17 inches 15:41:28 Patient Weight : 317.47 lbs 15:46:21 Patient received from Med II to CCL 1 Alert and oriented. Tansferred to table in Supine position. 15:46:23 Warm blankets applied, and ashley hugger turned on for patient comfort. 15:46:24 Correct patient and procedure confirmed by team. 15:46:25 ECG and BP/O2 sat monitors applied to patient. 15:50:36 H&P Date Dictated: 02/15/2019 Within 30 days and on chart.. 15:50:38 Pre-procedure instructions explained to patient. 15:50:39 Pre-op teaching completed and patient verbalized understanding. 15:50:41 Family in patients room. 15:50:44 Patient NPO since Midnight. 15:51:17 Patient allergic to Other allergycarvedilol 15:51:38 Is the patient allergic to Iodine/contrast media? No. 15:51:40 Was the patient premedicated? Yes 15:51:44 Is patient on blood thinner?Yes 15:51:49 ACC The patient was administered the following blood thiners within the last 24 hours: ACCPlavix 15:51:52 Patient diabetic? No. 15:51:54 ----Pre-sedation anethsthesia assessment.---- 15:51:59 Previous problem with sedation/anesthesia? No ? 15:52:04 Snore? Yes 15:52:09 Sleep apnea? No 15:52:13 Deviated septum? No 15:52:15 Opens mouth fully? Yes 15:52:18 Sticks out tongue? Yes 15:52:22 Airway obstruction? No ? 15:52:31 Dentures? Yes in tight 15:52:36 - 15:55:16 Vital chart was started 15:55:29 Pre procedure: right dorsailis pedis pulse 2+ Normal; easily identifiable; not easily obliterated 15:55:32 Oxygen 2 l/min etCO2 Nasal cannula was administered by Hanna Torres RN; used for procedure; Verbal order read back and verified. 15:55:35 Baseline sample Acquired. 15:55:38 Lidocaine 2% 20ml vial added to field was administered by Herman Moseley MD; for local anesthetic; Verbal order read back and verified. ::41 Rhythm: sinus rhythm 15:55:43 Full Disclosure recording started 15:55:44 Heparin Flush Bag (1000units/500ml NS) 2 bags added to field was administered by Herman Moseley MD; used for procedure; Verbal order read back and verified. 15:55:53 0.9% NaCl 100 ml/hr I.V. was administered by Hanna Torres RN; Per physician; Verbal order read back and verified. 15:55:55 Modified Leander's test Ulnar > 7 seconds. 15:56:04 Radial Cocktail (Verapamil 2mg/Nitro 400mcg/Heparin 1500units) 1 syring e I.A. was administered by Herman Moseley MD; for vasodilation; Verbal order read back and verified. 15:56:10 Patient pain scale 0/10 ?. 15:56:20 IV patent on arrival in left hand with 0.9% NaCl at [facility]. 15:56:26 Lab results completed and on chart. 15:56:32 Stress Test: no; N/A ? 15:56:38 Risk of Mortality: 0.1 15:56:47 Risk of blood transfusion: 0.1 15:56:54 Risk of LORENA: 0.3 15:57:15 Right Radial & Right Groin area was prepped with chlora-prep and draped in sterile fashion 15:59:00 Use device set Radial Dx or PCI 15:59:02 ACIST Syringe (54401) opened to sterile field. 15:59:02 Medline Cath Pack ([id number]) opened to sterile field. 15:59:03 Bag Decanter (2002) opened to sterile field. 15:59:05 ACIST Hand Control (25749) opened to sterile field. 15:59:05 ACIST Manifold (34133) opened to sterile field. 15:59:06 Tegaderm 4 x 4 (1626W) opened to sterile field. 15:59:07 MBrace Wrist Support ([id number]) opened to sterile field. 15:59:10 EMERALD Guide Wire (385-772) opened to sterile field. 15:59:12 SHEATH 6FR RAIN (5075583) opened to sterile field. 16:02:06 Zero performed for pressure channel P1 16:02:49 Alarms reviewed by R. N. 16:02:50 Sharps counted by scrub and verified by R.N. 16:02:58 --------ALL STOP TIME OUT------ 16:02:59 Final Timeout: patient, procedure, and site verified with staff and physician. All members of the team are in agreement. 16:03:00 Versed 2 mg I.V. was administered by Hanna Torres RN; for sedation; Verbal order read back and verified. 16:03:03 Right Radial & Right Groin site verified by team. 16:03:06 Fentanyl 100 mcg I.V. was administered by Hanna Torres RN; for sedation; Verbal order read back and verified. 16:03:10 Fire Safety Assessment: A--An alcohol-based skin anteseptic being used preoperatively., C--Open oxygen or nitrous oxide is being used., D--An ESU, laser, or fiber-optic light is being used. 16:03:16 Physical assessment completed. ASA score P 2 - A patient with mild systemic disease as per Herman Moseley MD. 16:03:20 1) 90+ Normal kidney functon but urine findings or structural abnormalities or genetic trait point to kidney disease. 16:03:28 Maximum allowable contrast dose (3.7 X eGFR X 0.75)250 ml. 16:03:35 Sedation plan: IV Moderate Sedation Medication:Versed, Fentanyl 16:03:59 Procedure started. 16:05:27 Local anesthetic to right radial artery with Lidocaine 2% by Herman Moseley MD.INITIAL ACCESS ONLY 16:06:11 Zero performed for pressure channel P1 16:06:25 Zero performed for pressure channel P1 16:06:50 A 6 Fr Short sheath was inserted into the Right Radial artery 16:07:21 A DIAGNOSTIC Thousandsticks 110cm 5 Fr catheter ([id number]) was advanced over the wire and used for Procedure. 16:08:17 LV gram done using DUVAL 16:08:29 Versed 2 mg I.V. was administered by Hanna Torres RN; for sedation; Verbal order read back and verified. 16:08:32 Fentanyl 100 mcg I.V. was administered by Hanna Torres RN; for sedation; Verbal order read back and verified. 16:09:50 EF : 35 % 16:11:09 RCA angiography performed. 16:12:02 Catheter exchanged over wire. 16:12:14 GUIDE 6FR XBLAD 3.5 catheter ([id number]) opened to sterile field. 16:12:37 [place]on Verrata Plus pressure wire (87727K) opened to sterile field. 16:13:17 6 Fr xblad3.5 guide catheter was inserted over the wire 16:13:32 LCA angiography performed. 16:13:47 INFLATOR Merit BasixCompak (DW3276) opened to sterile field. 16:14:27 Catheter removed. 16:14:35 GUIDE 6FR AR 2.0 catheter ([id number]) opened to sterile field. 16:14:45 Versed 2 mg I.V. was administered by Hanna Torres RN; for sedation; Verbal order read back and verified. 16:14:48 Fentanyl 100 mcg I.V. was administered by Hanna Torres RN; for sedation; Verbal order read back and verified. 16:15:42 6 Fr ar2 guide catheter was inserted over the wire 16:15:50 FFR/IFR wire advanced. 16:16:44 Wire advanced across lesion. 16:17:10 pRCA lesion measured at 0.80 with IFR 16:18:01 Heparin Bolus 4000 units I.V. was administered by Hanna Torres RN; for anticoagulation; verified with dr moseley Verbal order read back and verified. 16:18:06 Pre PCI Site: [place] pRCA has 80% stenosis. 16:19:17 Versed 2 mg I.V. was administered by Hanna Torres RN; for sedation; Verbal order read back and verified. 16:20:01 Place stent Inflation Number: 1 A ELSIE RX 3.0 x 12 stent ([id number]) was prepped and advanced across the Prox RCA . The stent was deployed at 13 TYREL for 0:00 (min:sec) . 16:20:24 Stent catheter was removed intact over wire. 16:20:27 Wire removed. 16:20:28 Guide catheter removed. 16:20:33 ACT drawn and resulted at 369 seconds. (normal therapeutic range 180-24 0 seconds). 16:21:29 TR BAND Large ([id number]) opened to sterile field. 16:21:37 Sheath removed intact; hemostasis achieved with Mechanical Compression to the Right Radial artery. 16:21:41 Procedure ended.(Physican Out) 16:22:01 Contrast amount:Isovue 300 96ml. 16:22:04 Maximum allowable dose exceeded? No. 16:22:16 Fluoroscopy time 05.50 minutes. 16:: Flurop Dose total: 1246 16:: Fluoroscopy dose: 1246 mGy 16:22:35 Dose Area Product 11199 mGy/cm. 16:22:38 Sharps counted by scrub and verified by R.N. 16:22:43 [place] band inflated with 0cc of air. 16:22:46 Insertion/operative site no bleeding no hematoma. 16:22:54 Post right radial artery:stable 16:22:56 Post Procedure Pulses reassessed and unchanged 16:23:01 Post-procedure physical assessment completed. ASA score P 2 - A patient with mild systemic disease as per Herman Moseley MD. 16:23:06 Post procedure rhythm: unchanged. 16:23:11 Estimated blood loss: 10 ml 16:23:14 Post procedure instruction explained to patient.Patient verbalizes understanding. 16:23:15 Patient needs reinforcement of post procedure teaching. 16:24:22 Procedure type changed to Cath procedure, Diagnostic procedure, LHC, C w/Coronaries, FFR/IVUS, FFR Initial, Sedation Charges, Moderate Sedation up to 15 minutes, PCI procedure, Coronary Stent, Coronary Stent Initial 16:24:24 Procedure and supply charges have been captured, reviewed, submitted an d are correct. 16:25:14 Procedure Complication : No complications 16:27:30 Vital chart was stopped 16:27:34 [facility] Findings: MVD- PCI performed (see procedure note) 16:28:25 Operative report dictated upon procedure completion. 16:28:26 See physician's report for complete and final results. 16:28:30 Report given to [facility]. 16:28:37 Patient transfered to [facility] with Bed. 16:28:41 Procedure ended. 16:28:41 Full Disclosure recording stopped 16::54 ACC-PCI Only Patient was given prescriptions, or instructed by Herman Moseley MD to start/continue the following medications upon discharge: Plavix 16:28:56 End room use (Document Last) Intervention Summary Intervention Notes Time ActionType Lesion and Equipment Used Action# Pressure Duration Attributes 16:20:[address] Place stent Prox RCA ELSIE RX 3.0 x 1 13 00:00 12 stent ([id number]) Device Usage Item Name Manufacture Quantity Catalog Hospital Part Current Minimal Lot# / Number Charge Number Stock Stock Serial# Code ACIST Syringe Acist 1 99030 678439 676788 871533 20 (55258) CommitChange Medline Cath Medline 1 [id number] 782705 47688 637296 5 Pack ([id number]) Bag Decanter Microtek 1 2001S 490979 49847 079903 5 (2001S) Medical Inc. ACIST Hand Acist 1 27021 704864 571844 096022 5 Control Medical (52290) Systems Inc ACIST Manifold Acist 1 97250 531391 727333 405878 5 (79438) Medical Systems Inc Tegaderm 4 x 4 3M 1 1626W 658872 105512 007754 5 (1626W) MBrace Wrist Advanced 1 140-0250-00 817898 42647 497607 5 Support Vascular ([id number]) Dynamics EMERALD Guide Cardinal 1 502-455 092754 066187 363985 5 Wire (502-455) Health SHEATH 6FR Cardinal 1 4412234 878236 6192188 174448 5 RAIN (3288479) Health DIAGNOSTIC Terumo 1 405013 573772 664171 964219 5 Thousandsticks 110cm 5 Fr catheter (906556) GUIDE 6FR Cardinal 1 [id number] 117189 865998 802129 10 XBLAD 3.5 Health catheter (70167574) Trenton Trenton 1 73598M 853156 748960234 935704 5 Verrata Plus pressure wire (25744X) INFLATOR Merit Merit 1 DO1857 534473 359730 936152 15 BasixBranded Onlinepak Medical (KG9085) GUIDE 6FR AR Medtronic 1 [id number] 163046 77117 696930 1 2.0 catheter (CO8FU19) ELSIE RX 3.0 x Medtronic 1 [id number] 878536 9462019 179981 5 [id number] 12 stent ([id number]) TR BAND Large Terumo 1 HCG66-RRP 945955 605993 175284 40 (AKI92QVF) Signature Audit [place] Stage Time Signature Unsigned Intra-Procedure 02/15/2019 Becca 4:29:28 PM Jermain RT(R) (CV) Intra-Procedure 02/15/2019 Hanna Torres RN 4:29:57 PM Intra-Procedure 02/15/2019 Herman Moseley 4:30:25 PM [facility] [address] [place] [address]
[2019-02-13 22:50] LABS: BASOPHILS 0.3 % (0-2); EOSINOPHILS 1.8 % (0-7); HEMATOCRIT 47.7 % (42.0-54.0); HEMOGLOBIN 16.1 g/dL (13.5-17.5); IMMATURE GRANULOCYTES 0.2 % (0-5); LYMPHOCYTES 34.9 % (15-50); MCH 32.2 pg (26.0-34.0); MCHC 33.8 g/dL (31.0-37.0); MCV 95.4 fL (80.0-100.0); MEAN PLATELET VOLUME 10.3 fL (7.4-10.4); NEUTROPHILS 51.8 % (40-80); PLATELET COUNT 201 10x3/uL (130-400); RDW 12.6 % (11.5-14.5)
[2019-02-13 22:58] LABS: CALC OSMOLALITY 282 mosm/kg (275-300); CALCIUM 8.5 mg/dL (8.5-10.1); CARBON DIOXIDE 25.1 mmol/L (21.0-32.0); CHLORIDE - SERUM 105 mmol/L (98-107); CREATININE - SERUM 1.1 mg/dL (0.6-1.3); GLUCOSE 102 mg/dL (74-106); SODIUM 141 mmol/L (136-145); UREA NITROGEN 17 mg/dL (7-18); eGFR NON AFRICAN AMERICAN 79 mL/min (90-120)
[2019-02-13 22:59] LABS: APTT 32.1 SECONDS (22.8-39.4); INR 1.04 (0.85-1.17); PROTIME 13.1 SECONDS (11.6-15.0)
--- NOTE | 2019-02-13 23:01 | NUR ---
PT C/O CP, PT RATES PAIN 8/10.
[2019-02-13 23:13] LABS: ALBUMIN 3.6 g/dL (3.4-5.0); ALKALINE PHOSPHATASE 128 U/L (46-116); ALT (SGPT) 123 U/L (10-68); BILIRUBIN - TOTAL 0.67 mg/dL (0.2-1.3); LIPASE 187 U/L (73-393); MAGNESIUM - SERUM 1.9 mg/dL (1.8-2.4); PRO BNP 495 pg/mL (0-125); PROTEIN - SERUM 7.3 g/dL (6.4-8.2); THYROID STIMULATING HORMONE 1.63 uIU/mL (0.36-3.74)
[2019-02-13 23:18] LABS: TROPONIN-I < 0.017 ng/mL (0.000-0.060)
[2019-02-14] VITALS (7 sets, daily range): BP systolic 92–108; BP diastolic 54–69; Ht 195.6 cm; Wt 144.1 kg
--- NOTE | 2019-02-14 01:02 | NUR ---
PT ARRIVED VIA W/C FROM ER WITH DX CP. NO DISTRESS NOTED. ADMISSION ASSESMENT, HISTORY AND HOME MED LIST COMPLETD. IV TO L HAND SL. SR PER CM HR 80. VSS. ALERT AND ORIENTED TO PERSON, PLACE AND TIME. ARIAS. LUNGS ESENTIALLY CTA. STATES CP NOW 6.10. FRIENDS AT BEDSIDE. CALL LIGHT WITHIN REACH.
--- NOTE | 2019-02-14 01:43 | NUR ---
PT RESTING WITH EYES CLOSED. RESP EVEN AND REGULAR. SR UP X2, CALL LIGHT WITHIN REACH.
--- NOTE | 2019-02-14 02:39 | NUR ---
MORPHINE 2MG SIVP GIVEN FOR C/O CP 09/21. CALL LIGHT WITHIN REACH.
--- NOTE | 2019-02-14 08:21 | NUR ---
AWAKE AND ALERT. TELEMERTY SHOWS SR 84. SL TO LEFT HAND, PATENT. DENIES ANY NEEDS. UP AB ZACHARY. WILL MONITOR
--- NOTE | 2019-02-14 17:08 | NUR ---
I have reviewed this patient and I concur with the Shift Assessment completed by the Licensed Practical Nurse today this shift.
--- NOTE | 2019-02-14 19:16 | NUR ---
RECIEVED BEDSIDE SHIFT REPORT. ALERT AND ORIENTED X4. UP AD ZACHARY. IV TO LEFT FA SL.. TELEMETRY IN PLACE. DENIES ANY NEEDS AT THIS TIME. REQUEST THAT MORPHINE BE GIVEN AT 2100. WILL CONT. POC.
[2019-02-14 21:22] LABS: COLOR YELLOW (YELLOW)
[2019-02-14 21:23] LABS: APPEARANCE CLEAR (CLEAR); BILIRUBIN NEGATIVE (NEGATIVE); GLUCOSE NEGATIVE (NEGATIVE); KETONE NEGATIVE (NEGATIVE); NITRITE NEGATIVE (NEGATIVE); PROTEIN NEGATIVE (NEGATIVE); UROBILINOGEN NORMAL (NORMAL)
[2019-02-14 21:28] LABS: UDS - AMPHET NEGATIVE QUAL (NEGATIVE); UDS - BARB NEGATIVE QUAL (NEGATIVE); UDS - BENZO NEGATIVE QUAL (NEGATIVE); UDS - COCAINE NEGATIVE QUAL (NEGATIVE); UDS - OPIATE POSITIVE QUAL (NEGATIVE); UDS - PCP NEGATIVE QUAL (NEGATIVE); UDS - THC NEGATIVE QUAL (NEGATIVE)
[2019-02-15 00:37] VITALS: BP 99/64
[2019-02-15 04:30] VITALS: BP 95/59
[2019-02-15 06:36] LABS: BASOPHILS 0.3 % (0-2); EOSINOPHILS 2.5 % (0-7); HEMATOCRIT 47.8 % (42.0-54.0); IMMATURE GRANULOCYTES 0.1 % (0-5); LYMPHOCYTES 37.8 % (15-50); MCH 31.7 pg (26.0-34.0); MCHC 33.5 g/dL (31.0-37.0); MCV 94.7 fL (80.0-100.0); MEAN PLATELET VOLUME 11.2 fL (7.4-10.4); MONOCYTES 7.7 % (2-11); NEUTROPHILS 51.6 % (40-80); PLATELET COUNT 182 10x3/uL (130-400); RBC 5.05 10x6/uL (4.20-6.10); RDW 12.4 % (11.5-14.5)
[2019-02-15 06:46] LABS: WBC 6.9 10x3/uL (4.8-10.8)
[2019-02-15 06:52] LABS: ALBUMIN 3.2 g/dL (3.4-5.0); ALKALINE PHOSPHATASE 88 U/L (46-116); ALT (SGPT) 106 U/L (10-68); BILIRUBIN - TOTAL 1.28 mg/dL (0.2-1.3); CALC OSMOLALITY 280 mosm/kg (275-300); CALCIUM 8.4 mg/dL (8.5-10.1); CARBON DIOXIDE 29.7 mmol/L (21.0-32.0); CHLORIDE - SERUM 105 mmol/L (98-107); CREATININE - SERUM 0.9 mg/dL (0.6-1.3); GLUCOSE 94 mg/dL (74-106); POTASSIUM - SERUM 4.1 mmol/L (3.5-5.1); PROTEIN - SERUM 6.7 g/dL (6.4-8.2); SODIUM 140 mmol/L (136-145); UREA NITROGEN 17 mg/dL (7-18); eGFR NON AFRICAN AMERICAN > 90 mL/min (90-120)
[2019-02-15 09:38] LABS: CHOL - HDL RATIO 4.4 ratio (2.3-4.9); LDL-HDL RATIO 2.1 ratio (1.5-3.5)
--- NOTE | 2019-02-15 09:48 | NUR ---
consents signed for [facility]. will cont. plan of care.
[2019-02-15 10:35] VITALS: BP 131/107
[2019-02-15 12:47] VITALS: BP 107/70
--- NOTE | 2019-02-15 15:45 | NUR ---
LEAVING FOR CANINE SERVICE TEACHER BY BED.
--- NOTE | 2019-02-15 16:47 | NUR ---
BACK FROM DATA PROCESSING EQUIPMENT REPAIRER. VS WNL. RIGHT WRIST STABLE WITH TR BAND INTACT. WILL MONITOR.
--- NOTE | 2019-02-15 20:00 | NUR ---
RELEASED 1 ML FROM TR BAND. NO SIGNS OF BLLEDING, SWELLING, OR BRUISING.
--- NOTE | 2019-02-15 20:30 | NUR ---
RELEASED 2 ML OF AIR FROM TR BAND. NO SIGNS OF BLEEDING, SWELLING, OR HEMATOMA.
[2019-02-15 20:41] VITALS: BP 102/57
--- NOTE | 2019-02-15 21:30 | NUR ---
RELEASED REMAINED OF AIR FROM TR BAND. NO SIGNS OF BLEEDING, SWELLING OR HEMATOMA. CLEANED AREA AND PLACED BAND AID ON AREA.
[2019-02-16 00:58] VITALS: BP 122/68
[2019-02-16 06:24] LABS: BASOPHILS 0.3 % (0-2); EOSINOPHILS 2.3 % (0-7); HEMATOCRIT 49.1 % (42.0-54.0); HEMOGLOBIN 16.6 g/dL (13.5-17.5); IMMATURE GRANULOCYTES 0.3 % (0-5); LYMPHOCYTES 34.9 % (15-50); MCH 31.7 pg (26.0-34.0); MCHC 33.8 g/dL (31.0-37.0); MCV 93.9 fL (80.0-100.0); MEAN PLATELET VOLUME 10.5 fL (7.4-10.4); MONOCYTES 7.2 % (2-11); PLATELET COUNT 188 10x3/uL (130-400); RBC 5.23 10x6/uL (4.20-6.10); RDW 12.1 % (11.5-14.5); WBC 6.9 10x3/uL (4.8-10.8)
[2019-02-16 06:46] LABS: ALBUMIN 3.3 g/dL (3.4-5.0); ALKALINE PHOSPHATASE 96 U/L (46-116); ALT (SGPT) 96 U/L (10-68); BILIRUBIN - TOTAL 0.91 mg/dL (0.2-1.3); CALC OSMOLALITY 278 mosm/kg (275-300); CALCIUM 8.4 mg/dL (8.5-10.1); CARBON DIOXIDE 28.9 mmol/L (21.0-32.0); CHLORIDE - SERUM 106 mmol/L (98-107); GLUCOSE 96 mg/dL (74-106); POTASSIUM - SERUM 4.6 mmol/L (3.5-5.1); SODIUM 139 mmol/L (136-145); UREA NITROGEN 16 mg/dL (7-18); eGFR NON AFRICAN AMERICAN 88 mL/min (90-120)
--- NOTE | 2019-02-16 09:12 | EC ---
PATIENT:HEMANTH JUDD DATE OF SERVICE: 02/14/19 SEX: M MEDICAL RECORD: [id number] DATE OF : [birth year] LOCATION:D.M2 D.211 AGE OF PATIENT: 38 ADMISSION DATE: 02/14/19 REFERRING PHYSICIAN: INTERPRETING PHYSICIAN: ADELIA MOSELEY MD ECHOCARDIOGRAM REPORT ECHO CHARGES 4 ECHO COMPLETE Date: 02/14/19 CLINICAL DIAGNOSIS: CHEST PAIN HX OF CAD,STENT CARDIOMYOPATHY ECHOCARDIOGRAPHIC MEASUREMENTS (adult normal given) AC root (d.<3.7cm) 3.7 cm LV Septum d (<1.2 cm> 1.3 cm Valve Excursion 1.9 cm LV Septum (systole) 1.4 cm Left Atria (s.<4.0cm> 4.4 cm LVPW d(<1.2cm) 1.5 cm RV (d.<2.3cm) 3.7 cm LVPW (sytole) 1.8 cm LV diastole(<5.6CM) 7.6 cm MV E-F(>70mm/sec) cm LV systole 6.3 cm LVOT Diameter 2.2 cm MV exc.(>10mm) 1.5 cm Est.ejection fraction (50-75%) % DOPPLER: LVIT cm/sec A 60.0 cm/sec E 103.0 cm/sec LA cm/sec RVSP 18 mmHg LVOT 94 cm/sec AOP1/2T m/s Asc. Ao 140 cm/sec RVOT 69 cm/sec RA cm/sec PA 105 cm/sec AV Gradient Peak 7.89 mmHg AV Mean 5.05 mmHg AV Area 2.4 cm MV Gradient Peak 6.63 mmHg MV Mean 2.42 mmHg MV Area cm COMMENTS: Flood Control Engineer: 2 DAGMAR GARCIA Manager Strategic Marketing: 1 Dr. Moseley TAPE# PACS Pericardial Effusion N DATE OF SERVICE: FINDINGS: 1. Left ventricular chamber size is dilated. Left ventricular systolic function is moderately depressed at 30% to 35%. 2. Left atrium is dilated at 4.4 cm. Right atrium and right ventricular chamber sizes are as well mildly dilated. 3. Valvular structures have normal structure and motion. 4. Doppler interrogation reveals mild mitral regurgitation, no other valvular insufficiency or stenosis. Pulmonary systolic pressure is estimated at 18 mmHg. ECHOCARDIOGRAM REPORT [id number] HEMANTH JUDD 5. No evidence of pericardial effusion or left ventricular thrombus. TRANSINT:[id number] Voice Confirmation ID: [id number] DOCUMENT ID: [id number] ADELIA MOSELEY MD at 0912 CC: [id number] DICTATION DATE: 02/15/19 153 RN DIALYSIS: 02/16/19 0049 ADM IN [facility] [address] [place] [id number]
[2019-02-16 09:14] VITALS: BP 128/88
[2019-02-16] MEDS ORDERED: NEURONTIN 300300 MG PO (10:20)
--- NOTE | 2019-02-16 11:55 | NUR ---
UPON ADMIT PATIENT HAS NOT HAD A FLU SHOT. WHEN ASKED, HE REFUSES ONE.
[2019-02-16] MEDS ORDERED: HYDROCODON-ACE1 EA10 PO (12:00)
--- NOTE | 2019-02-16 12:01 | NUR ---
WRITTEN SCRIPT OF NORDONNA GIVEN TO PATIENT. COPY PLACED TO CHART.
--- NOTE | 2019-02-16 13:04 | NUR ---
IV AND TELEMETRY DCD. DC PLANS GIVEN. UNDERSTANDING VOICED.
--- NOTE | 2019-02-16 16:23 | MORECARE ---
CASE MANAGEMENT DISCHARGE SUMMARY PATIENT: HEMANTH JUDD UNIT: [id number] ADM DATE: 02/14/19 AGE: 38 : [birth year] SEX: M ROOM/BED: D.2118 AUTHOR: GUDELIADOC PHYSICIAN: REFERRING PHYSICIAN: RODOLFO CHOI MD DATE OF SERVICE: 02/16/19 Discharge Plan Patient Name: HEMANTH JUDD Facility: [facility]:[place] : 1980 Planned Disposition: Home Anticipated Discharge Date: 02/16/19 Discharge Date: 02/16/2019 Expected LOS: 2 Initial Reviewer: [email or web address] Initial Review Date: 02/16/2019 Generated: 02/16/19 5:22 pm Comments DCP- Discharge Planning Updated by [email or web address]: Mookie Caro on 02/16/19 3:[address] Patient Name: HEMANTH JUDD Admission Status: ER Accout number: [id number] Admission Date: 02-14-2019 : 1980 Admission Diagnosis: Attending: RODOLFO CHOI Current LOS: 2 Anticipated DC Date: 02-16-2019 Planned Disposition: Home Primary Insurance: MEDICAID [place] Discharge Planning Comments: CM MET WITH PT IN ROOM TO DISCUSS DISCHARGE PLANNING AND NEEDS. PT REPORTS LIVING AT HOME INDEPENDENTLY AND ALONE. PT HAS NO MEDICAL EQUIPMENT AND NO OUTSIDE SERVICES ASSISTING IN THE HOME. CM DISCUSSED AVAILABILITY OF HOME HEALTH, REHAB SERVICES AND MEDICAL EQUIPMENT. PT DENIES DISCHARGE NEEDS, REPORTS A FRIEND WILL PICK HIM UP FOR DISCHARGE HOME. Respiratory Physician: Mookie Caro DCP- Discharge Planning Updated by [email or web address]: Cassandra Foy on 02/16/19 11:[address] Patient Name: HEMANTH JUDD Admission Status: ER Accout number: [id number] Admission Date: 02-14-2019 : 1980 Admission Diagnosis: Attending: RODOLFO CHOI Current LOS: 2 Anticipated DC Date: Planned Disposition: Primary Insurance: MEDICAID [place] Discharge Planning Comments: PATIENT STATES [facility] WILL NOT FILL HIS PRESCRIPTIONS. I CALLED [facility] FOR HIM AND PHARMACIST SAID THE GABAPENTIN WILL NEED A PA BEFORE THEY CAN FILL IT BUT HIS INSURANCE WILL COVER THE HYDROCODONE. STEPH AWARE OF THE PA FOR GABAPENTINE AND PATIENT'S PCP NEEDS TO PA THE GABAPENTINE. PATIENT AWARE. CM TO FOLLOW. Respiratory Physician: Cassandra Foy DCPIA - Discharge Planning Initial Assessment Updated by [email or web address]: Mookie Crao on 02/16/19 4:16 pm * Is the patient Alert and Oriented? Yes * How many steps to enter\exit or inside your home? NONE * PCP [facility] [place] * Pharmacy [facility] [address] * Preadmission Environment Home with Family * ADLs Independent * Equipment None * Other Equipment NO MEDICAL EQUIPMENT PROVIDER PREFERENCE * List name and contact numbers for known caregivers / representatives who currently or will assist patient after discharge: DANYELLE FIGUEROA, STEP FATHER, REMOVE ARIC JUDD * Verbal permission to speak to the caregivers and representatives has been obtained from the patient. N/A * Community resources currently utilized None * Please name any agencies selected above. NONE * Additional services required to return to the preadmission environment? No * Can the patient safely return to the preadmission environment? Yes * Has this patient been hospitalized within the prior 30 days at any hospital? No Patient Name: HEMANTH JUDD Page [id number] at 1623 All edits/amendments must be made on the electronic document DICTATION DATE: 02/16/191621 DIESEL INSTRUCTOR: JORGE 02/16/191621 RPT#: [id number] DC DATE:02/16/19 STATUS: DIS IN [facility] [address] [place] [address] END OF REPORT
--- NOTE | 2019-02-17 14:08 | OP ---
PATIENT NAME: HEMANTH JUDD MEDICAL RECORD: [id number] :[birth year] LOCATION:D.M2 D.2118 ADMISSION DATE:02/14/19 SURGEON: ADELIA BAEZA MD DATE OF OPERATION: 02/15/2019 PROCEDURES: 1. PTCA and stent of RCA. 2. IFR. 3. Left heart catheterization. 4. Selective coronary angiography. INDICATIONS: Unstable angina and coronary artery disease. PROCEDURE IN DETAIL: After informed consent was obtained and after a detailed explanation of the risks, benefits as well as alternative therapies, the patient elected to proceed with angiogram and angioplasty. The right radial area was prepped and draped in normal sterile fashion. Right radial artery was cannulated via modified Seldinger with placement of 6-Cymraes sheath. All catheters exchanged through this sheath. FINDINGS: Left ventriculogram was performed in standard 30-degree DUVAL view, reveals good cardiac wall motion throughout all segments. Overall ejection fraction is estimated at 60%. SELECTIVE CORONARY ANGIOGRAPHY: 1. Left main is with no significant angiographic disease. 2. Left anterior descending has previously placed stents. These are widely patent with no significant restenosis. No disease elsewise throughout the LAD or its branches. 3. Left circumflex has previously placed stents. These are widely patent with no significant restenosis. No disease elsewise throughout the circumflex or its branches. 4. The right coronary has a questionable stenosis in the proximal aspect that is possibly 70%. IFR is abnormal at 0.8. PTCA AND STENT OF THE RCA: The stent used was a 3.0 x 12-mm [place]. Result was 0% residual stenosis. OVERALL IMPRESSION: Successful PTCA and stent of the RCA going from 70% initial stenosis with an abnormal IFR to 0% residual. TRANSINT:[id number] Voice Confirmation ID: [id number] DOCUMENT ID: [id number] ADELIA BAEZA MD at 1408 CC: [id number] DICTATION DATE: 02/15/19 1624 RESTAURANT LINE COOK: 02/16/19 0100 DIS IN 02/16/19 [facility] [address] [place] [address]
== END 2019-02-16 13:05 | disposition home or self-care (01) | DRG 247 ==
LOC: D.ER 22:21 → D.M2 23:12 → OBSVTIME 23:12 → D.M2 02-14 15:13
PROVIDERS: Family Medicine; Internal Medicine Interventional Cardiology; ADMIT Internal Medicine Nephrology; ATTEND Internal Medicine Nephrology
PROC: 4A023N7 Measurement of Cardiac Sampling and Pressure, Left Heart, Percutaneous Approach (ICD-10-PCS; 2019-02-15)
PROC: B2111ZZ Fluoroscopy of Multiple Coronary Arteries using Low Osmolar Contrast (ICD-10-PCS; 2019-02-15)
PROC: B2151ZZ Fluoroscopy of Left Heart using Low Osmolar Contrast (ICD-10-PCS; 2019-02-15)
PROC: 027034Z Dilation of Coronary Artery, One Artery with Drug-eluting Intraluminal Device, Percutaneous Approach (ICD-10-PCS; principal; 2019-02-15 15:34)
PROC: 4A033BC Measurement of Arterial Pressure, Coronary, Percutaneous Approach (ICD-10-PCS; 2019-02-15 15:34)
DX: I25.110 Atherosclerotic heart disease of native coronary artery with unstable angina pectoris (principal); I50.22 Chronic systolic (congestive) heart failure; F17.213 Nicotine dependence, cigarettes, with withdrawal; E78.5 Hyperlipidemia, unspecified; I11.0 Hypertensive heart disease with heart failure; Z86.73 Personal history of transient ischemic attack (TIA), and cerebral infarction without residual deficits

== ENCOUNTER 2019-03-17 23:18 | Observation (INO) | payer MEDICAID ==
[~2019-03-17] VITALS: Ht 195.6 cm; Wt 100.0 kg
--- NOTE | ~2019-03-17 | HP ---
PATIENT: HEMANTH JUDD MEDICAL RECORD: [id number] ACCOUNT: [id number] LOCATION:[address] : [birth year] ADMISSION DATE: 03/18/19 PCP: SYLVAIN HAMMOND HISTORY AND PHYSICAL EXAMINATION ADMITTING DIAGNOSES: 1. Angina. 2. Coronary artery disease. 3. Previous multivessel percutaneous transluminal coronary angioplasty stent. 4. Hypertension. 5. Hyperlipidemia. HISTORY OF PRESENT ILLNESS: Mr. Judd is status post PTCA stent 2 weeks ago. No other lesions are present. He had an episode of angina that was relieved with 2 sublingual nitros by EMS. His troponin is negative. EKG is negative. He has had no further chest pain. PHYSICAL EXAMINATION: CONSTITUTIONAL/GENERAL APPEARANCE: Well nourished, well developed, appears stated age. EYES: Lids and conjunctivae noninjected. No discharge. No pallor. ENT: Lips within normal limit. No cyanosis. No pallor. NECK: Carotid arteries, bilateral normal upstroke. No bruits. No thrills. No jugular venous pressure or distention. CERVICAL LYMPH NODES: Nontender. Nonenlarged. THYROID: Not enlarged. No nodules. CARDIOVASCULAR: Precordial exam, nondisplaced. No heaves or pericardial thrills. Rate and rhythm, regular. Heart sounds, normal S1, normal S2. No S3, no gallop, no rub. Systolic murmur, not heard. Diastolic murmur, not heard. RESPIRATORY: Respiratory effort, unlabored. Normal curvature. No thoracic deformity. No chest wall tenderness. Percussion, resonant. Auscultation, clear. No wheezes, no rales, no rhonchi. ABDOMEN: Soft, nondistended, nontender. No abdominal pain, no vomiting and normal appetite. MUSCULOSKELETAL: No joint tenderness, normal gait, normal tone. SKIN: Warm and dry. REVIEW OF SYSTEMS: The patient reports easy bruising but reports no swollen glands. The patient reports no fever, no night sweats, no significant weight gain, no significant weight loss. No significant exercise tolerance. The patient reports no dry eyes, no irritation, no vision change. Patient reports no difficulty hearing and no ear pain. Patient reports no frequent nose bleeds or nose and sinus problems. Patient reports on arm pain on exertion. No shortness of breath while lying down. No history of heart murmur. Patient reports no cough, no wheezing or coughing up blood. Patient reports no abdominal pain, no vomiting. Normal appetite. No diarrhea and not vomiting blood. No nausea and no constipation. Patient reports no incontinence. No difficulty urinating. No hematuria. No increased frequency. Patient reports no muscle aches. No weakness, no arthralgias, no back pain. No swelling of the extremities. Patient reports no abnormal mole, no jaundice, no rashes. Reports no loss of consciousness. No weakness and no numbness. No seizures, dizziness, or headaches. The patient reports no depression, no sleep disturbance, feeling safe in a relationship and no alcohol abuse. Patient reports on fatigue. Reports no runny nose or sinus pressure. No itching, no hives, and no frequent sneezing. HISTORY AND PHYSICAL [id number] HEMANTH JUDD OVERALL IMPRESSION: Chest pain, recurrent angina. At this time, this is chronic stable angina. We will discharge home with the addition of Imdur and sublingual nitros p.r.n. to his medical regimen. TRANSINT:[id number] Voice Confirmation ID: [id number] DOCUMENT ID: [id number] ADELIA BAEZA MD CC: [id number] DICTATION DATE: 03/18/19 1031 DIRECTOR OF ENTERPRISE APPLICATIONS: 03/18/19 [address] [facility] [address] [place] [id number]
--- NOTE | ~2019-03-17 | DS ---
PATIENT:HEMANTH JUDD :[birth year] MEDICAL RECORD: [id number] DISCHARGE SUMMARY ADMISSION DATE: 03/18/19 DISCHARGE DATE: 03/18/19 DIAGNOSES: 1. Angina. 2. Coronary artery disease. 3. Hypertension. 4. Hyperlipidemia. HOSPITAL COURSE: Mrs. Judd presents with angina, relieved with sublingual nitro has chronic stable angina. Last cardiac intervention was 2 weeks ago and this time was discharged home with the addition of Imdur 30 mg a day and p.r.n. sublingual, his medical regimen. We will follow up with [facility] as previously scheduled. TRANSINT:[id number] Voice Confirmation ID: [id number] DOCUMENT ID: [id number] ADELIA BAEZA MD CC: [id number] DICTATION DATE: 03/18/19 103 CAR VARNISHER: 03/18/191901 DIS IN 03/18/19 [facility] [address] [place] [address]
[~2019-03-17 23:18] MED LIST changes: +HYDROCODON-ACE1 EA10 PO; +NEURONTIN 300300 MG PO
[2019-03-17 23:33] VITALS: BP 113/61
[2019-03-17 23:55] LABS: HEMATOCRIT 45.3 % (42.0-54.0); HEMOGLOBIN 15.6 g/dL (13.5-17.5); LYMPHOCYTES 24.9 % (15-50); MCH 31.3 pg (26.0-34.0); MCHC 34.4 g/dL (31.0-37.0); MEAN PLATELET VOLUME 10.1 fL (7.4-10.4); NEUTROPHILS 67.5 % (40-80); PLATELET COUNT 187 10x3/uL (130-400); RBC 4.98 10x6/uL (4.20-6.10); RDW 12.5 % (11.5-14.5); WBC 13.2 10x3/uL (4.8-10.8)
[2019-03-17 23:57] VITALS: BP 98/62
[2019-03-17 23:58] LABS: CALC OSMOLALITY 277 mosm/kg (275-300); CALCIUM 8.5 mg/dL (8.5-10.1); CARBON DIOXIDE 24.7 mmol/L (21.0-32.0); CHLORIDE - SERUM 102 mmol/L (98-107); GLUCOSE 136 mg/dL (74-106); POTASSIUM - SERUM 3.7 mmol/L (3.5-5.1); SODIUM 137 mmol/L (136-145); UREA NITROGEN 17 mg/dL (7-18); eGFR NON AFRICAN AMERICAN 88 mL/min (90-120)
[2019-03-17 23:59] LABS: APTT 29.6 SECONDS (22.8-39.4); INR 1.08 (0.85-1.17); PROTIME 13.5 SECONDS (11.6-15.0)
[2019-03-18 00:14] LABS: ALBUMIN 3.6 g/dL (3.4-5.0); ALKALINE PHOSPHATASE 95 U/L (46-116); ALT (SGPT) 176 U/L (10-68); BILIRUBIN - TOTAL 0.92 mg/dL (0.2-1.3); CKMB 1.8 U/L (0.0-3.6); CREATINE KINASE 273 UL (21-232); MAGNESIUM - SERUM 1.7 mg/dL (1.8-2.4); PROTEIN - SERUM 7.5 g/dL (6.4-8.2); TROPONIN-I < 0.017 ng/mL (0.000-0.060)
[2019-03-18 00:28] VITALS: BP 98/58
[2019-03-18] MEDS ORDERED: PROTONIX40 MG PO (02:15)
[2019-03-18] MEDS ORDERED: PREDNISONE20 MG PO (02:15)
[2019-03-18 02:22] VITALS: BP 99/58; BMI 26.1
[2019-03-18 04:00] VITALS: BP 99/58
[2019-03-18 06:19] LABS: HEMOGLOBIN 15.3 g/dL (13.5-17.5); LYMPHOCYTES 35.6 % (15-50); MCH 31.7 pg (26.0-34.0); MCHC 34.8 g/dL (31.0-37.0); MCV 91.1 fL (80.0-100.0); MEAN PLATELET VOLUME 10.5 fL (7.4-10.4); NEUTROPHILS 57.4 % (40-80); PLATELET COUNT 177 10x3/uL (130-400); RBC 4.83 10x6/uL (4.20-6.10); RDW 12.6 % (11.5-14.5); WBC 11.1 10x3/uL (4.8-10.8)
[2019-03-18 06:31] LABS: ALBUMIN 3.4 g/dL (3.4-5.0); ALKALINE PHOSPHATASE 80 U/L (46-116); ALT (SGPT) 157 U/L (10-68); BILIRUBIN - TOTAL 1.24 mg/dL (0.2-1.3); CALC OSMOLALITY 278 mosm/kg (275-300); CALCIUM 8.3 mg/dL (8.5-10.1); CHLORIDE - SERUM 103 mmol/L (98-107); CKMB 1.5 U/L (0.0-3.6); CREATINE KINASE 232 UL (21-232); CREATININE - SERUM 0.8 mg/dL (0.6-1.3); GLUCOSE 100 mg/dL (74-106); POTASSIUM - SERUM 3.8 mmol/L (3.5-5.1); PROTEIN - SERUM 7.1 g/dL (6.4-8.2); SODIUM 139 mmol/L (136-145); TROPONIN-I < 0.017 ng/mL (0.000-0.060); UREA NITROGEN 15 mg/dL (7-18); eGFR NON AFRICAN AMERICAN > 90 mL/min (90-120)
--- NOTE | 2019-03-18 06:45 | NUR ---
ORDERS RECEIVED FOR DC. PATIENT IS STABLE AND VSS. PATIENT DENIES ANY NEEDS OR PAIN. WRITTEN AND VERBAL INSTRUCTIONS GIVEN TO PATIENT. PATIENT VERBALIZED UNDERSTANDING AND SIGNED DC INSTRUCTIONS. IV DCD WITHOUT DIFFICULTY WITH ENTIRE CATHETER INTACT. PRESSURE DRESG APPLIED. PATIENT IS DCD HOME FOR SELF CARE. PATIENT TO FRONT DOOR VIA WC ACCOMPANIED BY HOSPITAL PERSONNEL TO PRIVATE VEHICLE DRIVEN BY FRIEND.
--- NOTE | 2019-03-18 07:10 | NUR ---
REPORT RECEIVED FROM POWDER EXPERT AND PATIENT CARE ASSUMED. PATIENT LAYING IN BED ON RT SIDE AWAKE, ALERT AND ORIENTED X 4 . PATIENT IS STABLE AND VSS. PATIENT DENIES ANY NEEDS OR PAIN. WILL CONTINUE WITH PLAN OF CARE. SR UP X 2 BED IN LOW POSITION AND CALL LIGHT IN REACH.
[2019-03-18 08:31] VITALS: Ht 195.6 cm; Wt 100.0 kg
[2019-03-18] MEDS ORDERED: NITROSTAT0.4 MG SL (09:00)
[2019-03-18] MEDS ORDERED: ISOSORBIDE MONO30 M1 PO (09:01)
--- NOTE | 2019-03-19 09:40 | MORECARE ---
CASE MANAGEMENT DISCHARGE SUMMARY PATIENT: HEMANTH JUDD UNIT: [id number] ADM DATE: 03/18/19 AGE: 38 : [birth year] SEX: M ROOM/BED: D.2120 AUTHOR: MALLIKA GALEAS PHYSICIAN: REFERRING PHYSICIAN: ADELIA BAEZA MD DATE OF SERVICE: 03/19/19 Discharge Plan Patient Name: HEMANTH JUDD [facility] [facility] 1980 Planned Disposition: Home Anticipated Discharge Date: 03/18/19 Discharge Date: 03/18/2019 Expected LOS: 1 Initial Reviewer: [email or web address] Initial Review Date: 03/19/2019 Generated: 03/19/19 10:40 am Patient Name: HEMANTH JUDD Page [id number] at 0940 All edits/amendments must be made on the electronic document DICTATION DATE: 03/19/19939 TELEMARKETING FUNDRAISER: JORGE 03/19/19939 RPT#: [id number] DC DATE:03/18/19 STATUS: DIS IN [facility] [address] [place] [address] END OF REPORT
== END 2019-03-18 11:25 | disposition home or self-care (01) ==
LOC: D.ER 23:18 → D.M2 03-18 00:32 → OBSVTIME 03-18 00:32 → D.M2 03-18 11:25
PROVIDERS: Family Medicine; ADMIT Internal Medicine Interventional Cardiology; ATTEND Internal Medicine Interventional Cardiology
DX: I25.119 Atherosclerotic heart disease of native coronary artery with unspecified angina pectoris (principal); I10 Essential (primary) hypertension; E78.5 Hyperlipidemia, unspecified

== ENCOUNTER 2019-05-01 18:59 | Observation (INO) | payer MEDICAID ==
[~2019-05-01] VITALS: Ht 195.6 cm; Wt 150.3 kg
--- NOTE | ~2019-05-01 | HEMODYNAMI ---
PATIENT:HEMANTH JUDD MEDICAL RECORD: [id number] : 76 LOCATION[facility] [id number] ADMISSION DATE: 05/01/19 Generatedon:05/03/20199:34 Patient name: HEMANTH JUDD Patient #: [id number] : 1980 Date of study: 05/03/2019 Page: Of Hemodynamic Procedure Report Patient Data Patient Demographics Procedure consent was obtained First Name: HEMANTH Gender: Male Last Name: DUTCH : 1980 [facility] Initial: J Age: 38 year(s) Patient #: [id number] Race: SSN: [id number] Additional ID: [id number] Contact details Address: [address] [place] [address] State: [place] City: [facility] Zip code: [address] Past Medical History Allergies Allergen Reaction Date Comments Reported Other allergy 01/02/2018 Other allergy 04/04/2018 cOREG Other allergy 08/05/2018 Coreg Other allergy 02/15/2019 carvedilol Admission Admission Data Admission Date: 05/01/2019 Admission Time: 20:02 Arrival Date: 04/26/2019 Arrival Time: 20:02 Admit Source: Other Insurance Payor: Medicaid Room #: D.2[address] [facility] #: [id number] Height (in.): 77.17 BSA: 2.77 (m2) Height (cm.): 196 BMI: 39.05 (kg/m2) Weight (lbs.): 330.7 Weight (kg.): 150 Lab Results Lab Result Date: 05/03/2019 Lab Result Time: 0:00 Biochemistry Name Units Result Min Max BUN mg/dl 16 --(---*)-- 7 18 Creatinine mg/dl 0.9 --(-*--)-- 0.6 1.3 eGFR ml/min 90 --(*---)-- 90 120 NONAFRICAN CBC Name Units Result Min Max Hemoglobin g/dl 15.5 --(-*--)-- 13.5 17.5 Procedure Procedure Types Cath Procedure Diagnostic Procedure [facility] w/Coronaries Sedation Charges Moderate Sedation up to 30 minutes Procedure Description Procedure Date Procedure Date: 05/03/2019 Procedure Start Time: 9:11 Procedure End Time: 9:27 Procedure Staff Name Function Rohan Collins MD Performing Physician Jocelin Fall RT Monitor Eliceo Javier RN Nurse Marine Vazquez RT Scrub Indication Angina Procedure Data Cath Procedure Fluoroscopy Diagnostic fluoroscopy Total fluoroscopy Time: 4.8 time: 4.8 min min Diagnostic fluoroscopy Total fluoroscopy dose: dose: 1266 mGy 1266 mGy Contrast Material Contrast Material Type Amount (ml) Isovue 300 72 Entry Location Entry Primary Successful Side Size Upsize Upsize Entry Closure Padron ccessful Closure Location (Fr) 1 (Fr) 2 (Fr) Remarks Device Remarks Radial Right 6 Fr Mechanical artery Short Compression Estimated blood loss: 5 ml Diagnostic catheters Device Type Used For End Catheter Placement DIAGNOSTIC Bimal 110cm Multi-vessel 5Fr catheter ([id number]) Angiography DIAGNOSTIC Lovell 110cm 5 Multi-vessel Fr catheter (389370) Angiography Procedure Complications No complications Procedure Medications Medication Administration Route Dosage 0.9% NaCl I.V. 100 ml/hr Oxygen etCO2 Nasal cannula 2 l/min Heparin Flush Bag added to field 2 bags (1000units/500ml NS) Lidocaine 2% added to field 20 Radial Cocktail added to field 1 syringe (Verapamil 2mg/Nitro 400mcg/Heparin 1500units) Versed I.V. 2 mg Fentanyl I.V. 100 mcg Versed I.V. 2 mg Fentanyl I.V. 100 mcg Radial Cocktail I.A. 1 syringe (Verapamil 2mg/Nitro 400mcg/Heparin 1500units) Hemodynamics Rest BSA: 2.77 (m2) HGB: 15.5 (g/dl) O2 Consumption: Estimated: 360.64 (ml/min) O2 Co nsumption indexed: Estimated:130.19 (ml/min/m) Heart Rate: 91 (bpm) Pressure Samples Time Site Value (mmHg) Purpose Heart Use Rate(bpm) 9:17 LV 91/30,20 Snapshot 110 Gradients Valve Time Site Site Mean SEP/DFP Peak To Heart Use 1 2 (mmHg) (sec/min) Peak Rate (mmHg) (bpm) Aortic 9:18 LV AO 39 Snapshots Pre Cath Intra NCS Post Cath Vital Signs Time Heart Resp SPO2 etCO2 NIBP (mmHg) Rhythm Pain Sedation Rate (ipm) (%) (mmHg) Status Level (bpm) 8:43:41 90 18 98 37.4 128/91(106) NSR 0 (11) 10(A) , No pain 8:47:53 82 14 88 39.8 118/80(97) NSR 0 (11) 10(A) , No pain 8:52:01 81 15 95 21.4 123/81(101) NSR 0 (11) 10(A) , No pain 8:56:05 78 19 96 38.2 119/83(102) NSR 0 (11) 10(A) , No pain 9:00:13 84 11 94 41.2 124/78(104) NSR 0 (11) 10(A) , No pain 9:04:21 81 11 95 37.5 116/76(94) NSR 0 (11) 10(A) , No pain 9:08:29 81 15 92 37.4 117/76(94) NSR 0 (11) 10(A) , No pain 9:12:34 81 14 91 40.5 123/86(102) NSR 0 (11) 10(A) , No pain 9:16:38 84 11 89 21.4 110/69(86) NSR 0 (11) 9(A) , No pain 9:20:44 85 12 86 4.5 103/73(93) NSR 0 (11) 9(A) , No pain 9:24:45 87 11 94 45.8 109/78(90) NSR 0 (11) 9(A) , No pain Medications Time Medication Route Dose Verified Delivered Reason Notes Effectiveness by by 8:38:29 0.9% NaCl I.V. 100 Eliceo Eliceo Per ml/hr Concepcion Javier physician RN RN 8:38:39 Oxygen etCO2 2 l/min Eliceo Eliceo for low 02 Nasal Lorigan Lorigan sats cannula RN RN 8:38:48 Heparin Flush added 2 bags Eliceo Eliceo used for Bag to Concepcion Javier procedure (1000units/500ml field RN RN NS) 8:38:58 Lidocaine 2% added 20ml Eliceo Eliceo for local to vial Lorigan Lorigan anesthetic field RN RN 8:39:11 Radial Cocktail added 1 Eliceo Eliceo used for (Verapamil to syringe Lorigan Lorigan procedure 2mg/Nitro field RN RN 400mcg/Heparin 1500units) 8:52:57 Versed I.V. 2 mg Eliceo Eliceo for sedation Concepcion Javier RN RN 8:53:06 Fentanyl I.V. 100 mcg Eliceo Eliceo for sedation Concepcion Javier RN RN 9:10:41 Versed I.V. 2 mg Eliceo Eliceo for sedation Concepcion Javier RN RN 9:10:48 Fentanyl I.V. 100 mcg Eliceo Eliceo for sedation Concepcion Javier RN RN 9:14:37 Radial Cocktail I.A. 1 Eliceo Rohan for (Verapamil syringe Concepcion Collins MD vasodilation 2mg/Nitro RN 400mcg/Heparin 1500units) Procedure Log Time Note 8:03:44 Diagnostic Cath Status : Elective 8:04:17 Indication : Angina 8:04:49 Informed consent obtained and on chart 8:06:29 Arrival Date: 04/26/2019 8:02:00 PM 8:06:53 Insurance Payor : Medicaid 8:06:54 Admit Source: Other 8:07:00 Patient Height : 77.17 inches 8:07:07 Patient Weight : 330.7 lbs 8:08:17 Lab Result : eGFR NONAFRICAN 90 ml/min 8:08:17 Lab Result : Hemoglobin 15.5 g/dl 8:08:17 Lab Result : BUN 16 mg/dl 8:08:17 Lab Result : Creatinine 0.9 mg/dl 8:08:41 Procedure Status Urgent Heart Cath (IP). 8:08:43 Marine CHUNG(R) sent for patient. Start room use. 8:08:45 Time tracking: Regular hours (M-F 7:00 - 5:00) 8:08:50 Plan of Care:Hemodynamics will remain stable., Cardiac rhythm will remain stable., Comfort level will be maintained., Respiratory function will remain adequate., Patient/ family verbilizes understanding of procedure., Procedure tolerated without complication., Recovers from procedure without complications.. 8:11:34 1) 90+ Normal kidney functon but urine findings or structural abnormalities or genetic trait point to kidney disease. 8:11:37 Maximum allowable contrast dose (3.7 X eGFR X 0.75)249 ml. 8:38:29 0.9% NaCl 100 ml/hr I.V. was administered by Eliceo Javier RN; Per physician; Verbal order read back and verified. 8:38:39 Oxygen 2 l/min etCO2 Nasal cannula was administered by Eliceo Javier RN; for low 02 sats; Verbal order read back and verified. 8:38:48 Heparin Flush Bag (1000units/500ml NS) 2 bags added to field was administered by Eliceo Javier RN; used for procedure; Verbal order read back and verified. 8:38:58 Lidocaine 2% 20ml vial added to field was administered by Eliceo Javier RN; for local anesthetic; Verbal order read back and verified. 8:39:11 Radial Cocktail (Verapamil 2mg/Nitro 400mcg/Heparin 1500units) 1 syringe added to field was administered by Eliceo Javier RN; used for procedure; Verbal order read back and verified. 8:42:43 Patient received from Med II to CCL 2 Alert and oriented. Tansferred to table in Supine position. 8:42:44 Warm blankets applied, and ashley hugger turned on for patient comfort. 8:42:44 Correct patient and procedure confirmed by team. 8:42:45 ECG and BP/O2 sat monitors applied to patient. 8:42:46 Vital chart was started 8:42:47 Baseline sample Acquired. 8:42:56 Rhythm: sinus tachycardia 8:42:57 Full Disclosure recording started 8:43:05 H&P Date Dictated: 05/03/2019 ER History on chart., New H&P dictated by physician.. 8:43:07 Pre-procedure instructions explained to patient. 8:43:07 Pre-op teaching completed and patient verbalized understanding. 8:43:09 Family unavailable. 8:43:11 Patient NPO since Midnight. 8:43:13 Is the patient allergic to Iodine/contrast media? No. 8:43:14 Was the patient premedicated? Yes 8:43:15 Is patient on blood thinner?Yes 8:43:17 ACC The patient was administered the following blood thiners within the last 24 hours: ACCPlavix 8:43:19 Patient diabetic? No. 8:43:22 Previous problem with sedation/anesthesia? No ? 8:43:58 Snore? Yes 8:44:00 Sleep apnea? No 8:44:05 Deviated septum? No 8:44:06 Opens mouth fully? Yes 8:44:07 Sticks out tongue? Yes 8:44:08 Airway obstruction? No ? 8:44:11 Dentures? No ? 8:44:15 Pre procedure: right dorsailis pedis pulse 2+ Normal; easily identifiable; not easily obliterated 8:44:17 Pre procedure: left dorsailis pedis pulse 2+ Normal; easily identifiable; not easily obliterated 8:44:20 Patient pain scale 0/10 ?. 8:44:27 IV patent on arrival in left forearm with 0.9% NaCl at [facility]. 8:44:30 Lab results completed and on chart. 8:44:36 Stress Test: no; N/A ? 8:44:41 Risk of Mortality: 3.0 8:44:44 Risk of blood transfusion: 2.4 8:44:48 Risk of LORENA: 3.4 8:44:54 Right Radial & Right Groin area was prepped with chlora-prep and draped in sterile fashion 8:44:55 Alarms reviewed by R. N. 8:44:56 Sharps counted by scrub and verified by R.N. 8:52:33 Physician arrived 8:52:33 --------ALL STOP TIME OUT------ 8:52:34 Final Timeout: patient, procedure, and site verified with staff and physician. All members of the team are in agreement. 8:52:37 Right Radial & Right Groin site verified by team. 8:52:42 Fire Safety Assessment: A--An alcohol-based skin anteseptic being used preoperatively., C--Open oxygen or nitrous oxide is being used., D--An ESU, laser, or fiber-optic light is being used. 8:52:46 Physical assessment completed. ASA score P 2 - A patient with mild systemic disease as per Rohan Collins MD. 8:52:51 Sedation plan: IV Moderate Sedation Medication:Versed, Fentanyl 8:52:57 Versed 2 mg I.V. was administered by Eliceo Javier RN; for sedation; Verbal order read back and verified. 8:53:06 Fentanyl 100 mcg I.V. was administered by Eliceo Javier RN; for sedation; Verbal order read back and verified. 8:55:08 Zero performed for pressure channel P1 8:55:23 Use device set Radial Dx or PCI 8:55:24 ACIST Syringe (13962) opened to sterile field. 8:55:24 Medline Cath Pack ([id number]) opened to sterile field. 8:55:25 Bag Decanter (2002S) opened to sterile field. 8:55:25 ACIST Hand Control (68923) opened to sterile field. 8:55:25 ACIST Manifold (02293) opened to sterile field. 8:55:26 Tegaderm 4 x 4 (1626W) opened to sterile field. 8:55:27 MBrace Wrist Support ([id number]) opened to sterile field. 8:55:28 NEEDLE Cook 21G 4cm Radial (S40500) opened to sterile field. 8:55:32 SHEATH 6FR RAIN (1212783) opened to sterile field. 8:55:32 EMERALD Guide Wire (534-978) opened to sterile field. 9:10:41 Versed 2 mg I.V. was administered by Eliceo Javier RN; for sedation; Verbal order read back and verified. 9:10:48 Fentanyl 100 mcg I.V. was administered by Eliceo Javier RN; for sedation; Verbal order read back and verified. 9:11:02 Procedure started. 9:11:06 Local anesthetic to right radial artery with Lidocaine 2% by Rohan Collins MD.INITIAL ACCESS ONLY 9:13:42 A 6 Fr Short sheath was inserted into the Right Radial artery 9:14:18 A DIAGNOSTIC Bimal 110cm 5Fr catheter (274236) was advanced over the wire and used for Multi-vessel Angiography. 9:14:37 Radial Cocktail (Verapamil 2mg/Nitro 400mcg/Heparin 1500units) 1 syringe I.A. was administered by Rohan Collins MD; for vasodilation; Verbal order read back and verified. 9:16:47 RCA angiography performed. 9:16:50 Injector settings: Ml/sec: 3, Volume: 6, 9:17:42 LV hemodynamics recorded. 9:17:43 LV gram done using DUVAL 9:17:46 Injector settings: Ml/sec: 5, Volume: 15, 9:18:17 EF : 35 % 9:19:08 Catheter removed. 9:21:49 A DIAGNOSTIC Lovell 110cm 5 Fr catheter (622679) was advanced over the wire and used for Multi-vessel Angiography. 9:22:21 LCA angiography performed. 9::24 Injector settings: Ml/sec: 3, Volume: 6, 9:24:51 Catheter removed. 9:25:21 Sheath removed intact; hemostasis achieved with Mechanical Compression to the Right Radial artery. 9:25:23 Procedure ended.(Physican Out) 9:25:39 Fluoroscopy time 04.80 minutes. 9:25:45 Flurop Dose total: 1266 9:25:45 Fluoroscopy dose: 1266 mGy 9:25:53 Dose Area Product 48039 mGy/cm. 9:25:56 Contrast amount:Isovue 300 72ml. 9:25:58 Maximum allowable dose exceeded? No. 9:26:14 TR BAND Large ([id number]) opened to sterile field. 9:26:16 Sharps counted by scrub and verified by R.N. 9:26:20 [place] band inflated with 10cc of air. 9:26:23 Insertion/operative site no bleeding no hematoma. 9:26:27 Post right radial artery:stable 9:26:28 Post Procedure Pulses reassessed and unchanged 9:26:31 Post procedure rhythm: unchanged. 9:26:34 Estimated blood loss: 5 ml 9:26:35 Post procedure instruction explained to patient.Patient verbalizes understanding. 9:26:36 Patient needs reinforcement of post procedure teaching. 9:27:19 Procedure type changed to Cath procedure, Diagnostic procedure, C, [facility] w/Coronaries, Sedation Charges, Moderate Sedation up to 30 minutes 9:27:20 Procedure and supply charges have been captured, reviewed, submitted and are correct. 9:27:25 Procedure Complication : No complications 9:27:29 Vital chart was stopped 9:27:35 [facility] Findings: mild to moderate CAD (<70%) 9:27:37 Operative report dictated upon procedure completion. 9:27:37 See physician's report for complete and final results. 9:27:39 Report given to [facility]. 9:27:43 Patient transfered to [facility] with Stretcher. 9:27:46 Procedure ended. 9:27:46 Full Disclosure recording stopped 9:27:52 End room use (Document Last) Device Usage Item Name Manufacture Quantity Catalog Hospital Part Current Minima l Lot# / Number Charge Number Stock Stock Serial# Code ACIST Acist 1 36997 [id number] 485072 723848 20 Syringe Medical (54986) Systems Inc Medline Medline 1 [id number] 822509 96496 574970 5 Cath Pack ([id number]) Bag Microtek 1 2001S 601164 87579 922811 5 Decanter Medical Inc. (2001S) ACIST Hand Acist 1 49088 810122 885854 871034 5 Control Medical (45347) Systems Inc ACIST Acist 1 67117 660104 125104 708681 5 Manifold Medical (26215) Systems Inc Tegaderm 4 3M 1 1626W 595042 495976 797138 5 x 4 (1626W) MBrace Advanced 1 140-0250-00 656737 40427 805223 5 Wrist Vascular Support Dynamics ([id number]) NEEDLE CS Products Medical 1 B41256 564619 685769 129494 5 21G 4cm Radial (U17127) SHEATH 6FR Cardinal 1 2994615 281121 6347778 971807 5 [facility] Health (5648008) EMERALD Cardinal 1 502-455 100991 351326 761281 5 Guide Wire Health (502-667) DIAGNOSTIC Terumo 1 40-5023 572619 214754 350231 5 Bimal 110cm 5Fr catheter (074319) DIAGNOSTIC Terumo 1 40-5013 027021 869132 293440 5 Lovell 110cm 5 Fr catheter (670274) TR BAND Terumo 1 [id number] 223130 851987 953035 40 Large ([id number]) Signature Audit [place] Stage Time Signature Unsigned Intra-Procedure 05/03/2019 Jocelin Fall 9:32:50 AM RT(R) Intra-Procedure 05/03/2019 Eliceo 9:33:24 AM Concepcion NORTH Intra-Procedure 05/03/2019 Rohan Collins MD 9:34:02 AM Signatures Performing Physician : Signature : Rohan Collins MD Date : Time : Monitor : Jocelin Juan David RT Signature : Date : Time : Nurse : Eliceo Lorigan Signature : RN Date : Time : [address] [place] [address]
[~2019-05-01 18:59] MED LIST changes: +NITROSTAT0.4 MG SL; +PREDNISONE20 MG PO
[2019-05-01] MEDS ORDERED: ZESTORETIC 20-1 EACH PO (19:06)
[2019-05-01] MEDS ORDERED: ATIVAN1 MG PO (19:11)
[2019-05-01 19:21] LABS: BASOPHILS 0.3 % (0-2); EOSINOPHILS 1.9 % (0-7); HEMATOCRIT 49.5 % (42.0-54.0); HEMOGLOBIN 17.6 g/dL (13.5-17.5); IMMATURE GRANULOCYTES 0.1 % (0-5); LYMPHOCYTES 37.9 % (15-50); MCH 32.8 pg (26.0-34.0); MCHC 35.6 g/dL (31.0-37.0); MCV 92.4 fL (80.0-100.0); MEAN PLATELET VOLUME 10.4 fL (7.4-10.4); MONOCYTES 7.5 % (2-11); NEUTROPHILS 52.3 % (40-80); PLATELET COUNT 216 10x3/uL (130-400); RBC 5.36 10x6/uL (4.20-6.10); RDW 12.7 % (11.5-14.5); WBC 9.6 10x3/uL (4.8-10.8)
[2019-05-01 19:30] VITALS: BP 144/84
--- NOTE | 2019-05-01 19:30 | NUR ---
REPORT RECIEVED. PT NOT IN ROOM ON INITIAL ROUNDS AND HAD UNCAPPED HIS IV ON HIS OWN TO GO OUTSIDE WITH HIS FRIENDS. WHEN HE RETURNED TO ROOM, HE WENT TO RESECURE HIS IV TO HIS SALINE LOCK AND THIS NURSE INSTRUCTED HIM THAT WE WILL LEAVE HIS IVF SALINE LOCKED AND HE CAN INCREASE HIS FLUIDS. INSTRUCTED THAT PT SHOULD NOT BE UNDOING THE IV AT HIS DISCRETION FOR HIM TO GO OUTSIDE.
[2019-05-01 19:31] LABS: APTT 29.4 SECONDS (22.8-39.4); INR 0.97 (0.85-1.17); PROTIME 12.9 SECONDS (11.6-15.0)
[2019-05-01 20:00] VITALS: BP 125/77
[2019-05-01 20:04] LABS: CREATININE - SERUM 0.8 mg/dL (0.6-1.3); GLUCOSE 109 mg/dL (74-106); MAGNESIUM - SERUM 1.8 mg/dL (1.8-2.4); UREA NITROGEN 19 mg/dL (7-18); eGFR NON AFRICAN AMERICAN > 90 mL/min (90-120)
[2019-05-01 20:05] LABS: CARBON DIOXIDE 20.4 mmol/L (21.0-32.0); POTASSIUM - SERUM 3.2 mmol/L (3.5-5.1)
[2019-05-01 20:06] LABS: ALKALINE PHOSPHATASE 96 U/L (46-116); ALT (SGPT) 352 U/L (10-68)
[2019-05-01 20:07] LABS: ALBUMIN 3.6 g/dL (3.4-5.0); BILIRUBIN - TOTAL 0.66 mg/dL (0.2-1.3); CKMB 49.8 U/L (0.0-3.6); CREATINE KINASE 175 UL (21-232); PROTEIN - SERUM 4.8 g/dL (6.4-8.2)
[2019-05-01 20:09] LABS: CALC OSMOLALITY 213 mosm/kg (275-300); SODIUM 103 mmol/L (136-145)
[2019-05-01 20:10] LABS: CALCIUM 6.8 mg/dL (8.5-10.1); CHLORIDE - SERUM 76 mmol/L (98-107); TROPONIN-I 0.121 ng/mL (0.000-0.060)
[2019-05-01 20:12] LABS: TROPONIN-I 0.121 ng/mL (0.000-0.060)
--- NOTE | 2019-05-01 20:54 | NUR ---
URINE SPECIMEN SENT TO LAB
[2019-05-01 20:59] LABS: APPEARANCE CLEAR (CLEAR); BILIRUBIN NEGATIVE (NEGATIVE); COLOR YELLOW (YELLOW); GLUCOSE NEGATIVE (NEGATIVE); KETONE NEGATIVE (NEGATIVE); NITRITE NEGATIVE (NEGATIVE); PROTEIN NEGATIVE (NEGATIVE); SPECIFIC GRAVITY 1.015 (1.005-1.020); UROBILINOGEN NORMAL (NORMAL)
[2019-05-01 21:00] VITALS: BP 113/69
[2019-05-01 21:09] LABS: UDS - AMPHET NEGATIVE QUAL (NEGATIVE); UDS - BARB NEGATIVE QUAL (NEGATIVE); UDS - BENZO NEGATIVE QUAL (NEGATIVE); UDS - COCAINE NEGATIVE QUAL (NEGATIVE); UDS - OPIATE NEGATIVE QUAL (NEGATIVE); UDS - PCP NEGATIVE QUAL (NEGATIVE); UDS - THC NEGATIVE QUAL (NEGATIVE)
[2019-05-01 21:30] VITALS: BP 114/67
[2019-05-01 22:00] VITALS: BP 98/71
--- NOTE | 2019-05-01 22:20 | NUR ---
LAB AT BEDSIDE FOR REDRAW
[2019-05-01 22:44] LABS: ALBUMIN 3.5 g/dL (3.4-5.0); ALKALINE PHOSPHATASE 107 U/L (46-116); BILIRUBIN - TOTAL 0.54 mg/dL (0.2-1.3); CALCIUM 8.4 mg/dL (8.5-10.1); CREATININE - SERUM 0.9 mg/dL (0.6-1.3); GLUCOSE 99 mg/dL (74-106); TROPONIN-I < 0.017 ng/mL (0.000-0.060); UREA NITROGEN 20 mg/dL (7-18); eGFR NON AFRICAN AMERICAN > 90 mL/min (90-120)
[2019-05-01 22:45] LABS: ALT (SGPT) 503 U/L (10-68); CALC OSMOLALITY 281 mosm/kg (275-300); CARBON DIOXIDE 25.7 mmol/L (21.0-32.0); CHLORIDE - SERUM 105 mmol/L (98-107); POTASSIUM - SERUM 4.2 mmol/L (3.5-5.1); PROTEIN - SERUM 7.2 g/dL (6.4-8.2); SODIUM 140 mmol/L (136-145)
[2019-05-01 23:00] VITALS: BP 98/54
--- NOTE | 2019-05-01 23:00 | NUR ---
PT SLEEPING ON BED. NO S/S OF ACUTE DISTRESS NOTED.
[2019-05-02] VITALS (9 sets, daily range): BP systolic 97–110; BP diastolic 56–73; Ht 195.6 cm; Wt 150.3 kg
--- NOTE | 2019-05-02 00:15 | NUR ---
RECEIVED REPORT FROM ER, PT IS A&Ox4, HISTORY AND MEDS COMPLETE, EXPLAINED WILL BE NPO UNTIL SEEN BY , COMPLAINS OF HEADACHE, WILL GIVE TYLENOL ORDER, PT ALSO ASKING FOR MORPHINE FOR CHEST PAIN, BED IS LOW, SRX2, CALL LIGHT IN REACH, WILL CONTINUE PLAN OF CARE
[2019-05-02 06:52] LABS: BASOPHILS 0.5 % (0-2); EOSINOPHILS 2.5 % (0-7); HEMATOCRIT 46.1 % (42.0-54.0); HEMOGLOBIN 15.5 g/dL (13.5-17.5); IMMATURE GRANULOCYTES 0.2 % (0-5); LYMPHOCYTES 41.5 % (15-50); MCH 31.1 pg (26.0-34.0); MCHC 33.6 g/dL (31.0-37.0); MCV 92.6 fL (80.0-100.0); MONOCYTES 9.2 % (2-11); NEUTROPHILS 46.1 % (40-80); PLATELET COUNT 194 10x3/uL (130-400); RBC 4.98 10x6/uL (4.20-6.10); RDW 12.8 % (11.5-14.5)
[2019-05-02 07:08] LABS: ALBUMIN 3.2 g/dL (3.4-5.0); ALKALINE PHOSPHATASE 96 U/L (46-116); ALT (SGPT) 498 U/L (10-68); BILIRUBIN - TOTAL 0.86 mg/dL (0.2-1.3); CALC OSMOLALITY 281 mosm/kg (275-300); CARBON DIOXIDE 27.2 mmol/L (21.0-32.0); CHLORIDE - SERUM 106 mmol/L (98-107); CREATININE - SERUM 0.9 mg/dL (0.6-1.3); GLUCOSE 93 mg/dL (74-106); MAGNESIUM - SERUM 2.1 mg/dL (1.8-2.4); PHOSPHOROUS 3.6 mg/dL (2.5-4.9); POTASSIUM - SERUM 4.1 mmol/L (3.5-5.1); PROTEIN - SERUM 6.7 g/dL (6.4-8.2); SODIUM 140 mmol/L (136-145); UREA NITROGEN 20 mg/dL (7-18); eGFR NON AFRICAN AMERICAN > 90 mL/min (90-120)
[2019-05-02 07:09] LABS: TROPONIN-I < 0.017 ng/mL (0.000-0.060); WBC 6.3 10x3/uL (4.8-10.8)
[2019-05-02] MEDS ORDERED: LISINOPRIL-HCT1 EAC4 PO (12:24)
--- NOTE | 2019-05-02 22:15 | NUR ---
PROVIDED REQUESTED IV MORPINE AT APPROPRIATE TIME. PT HAD TO BE ROUSED UP, BUT HAD COMPLAINED THAT HE SHOULD NOT HAVE TO COME OUT AT THE TIME HE SHOULD BE GETTING MEDICATION, WHEN HE ALREADY ASKED FOR IT BACK AT SHIFT CHANGE.
[2019-05-03 04:00] VITALS: BP 114/77
--- NOTE | 2019-05-03 05:12 | NUR ---
PT GIVEN REQUESTED DOSE OF IV MORPHINE AFTER HE WAS AWAKENED FOR VITAL SIGNS. HE STATES HE WILL BE HAVING A HEART CATH TODAY, EVEN THOUGH THERE ARE NO SPECIFIC ORDERS ON THE CHART. INSTRUCTED PT TO CONTINUE TO BE NPO NOW THAT HE IS AWAKE AND WE WILL SEE WHAT HIS PLANNED INTERVENTIONS ARE.
[2019-05-03 06:10] LABS: BASOPHILS 0.4 % (0-2); EOSINOPHILS 2.8 % (0-7); HEMATOCRIT 45.1 % (42.0-54.0); HEMOGLOBIN 15.1 g/dL (13.5-17.5); LYMPHOCYTES 40.5 % (15-50); MCH 31.3 pg (26.0-34.0); MCHC 33.5 g/dL (31.0-37.0); MCV 93.4 fL (80.0-100.0); MEAN PLATELET VOLUME 10.9 fL (7.4-10.4); MONOCYTES 9.6 % (2-11); NEUTROPHILS 46.7 % (40-80); PLATELET COUNT 169 10x3/uL (130-400); RBC 4.83 10x6/uL (4.20-6.10); RDW 12.6 % (11.5-14.5); WBC 5.4 10x3/uL (4.8-10.8)
[2019-05-03 06:32] LABS: CALC OSMOLALITY 283 mosm/kg (275-300); CARBON DIOXIDE 27.2 mmol/L (21.0-32.0); CHLORIDE - SERUM 106 mmol/L (98-107); CREATININE - SERUM 0.9 mg/dL (0.6-1.3); POTASSIUM - SERUM 4.2 mmol/L (3.5-5.1); SODIUM 141 mmol/L (136-145); UREA NITROGEN 16 mg/dL (7-18); eGFR NON AFRICAN AMERICAN > 90 mL/min (90-120)
[2019-05-03 06:33] LABS: GLUCOSE 141 mg/dL (74-106)
--- NOTE | 2019-05-03 07:14 | NUR ---
ALERT AND ORIENTED. TELEMERTY SHOWS SR. SL TO LEFT HAND. NPO FOR TEST. DENIES ANY NEEDS AT PRESENT TIME. SR UP WITH CALL LIGHT IN REACH
[2019-05-03 08:14] LABS: CHOL - HDL RATIO 5.8 ratio (2.3-4.9); LDL-HDL RATIO 3.2 ratio (1.5-3.5)
--- NOTE | 2019-05-03 09:56 | NUR ---
BACK FROM [facility]. PT HAD A NORMAL CATH. TR BAND TO LEFT WRIST.. FINGERS WARM. SLEEPING BUT AROUSES EASILY. V/S STABLE.TELEMERTY SHOWS SR.
--- NOTE | 2019-05-03 10:47 | NUR ---
LYING QUIETLY WITH EYES CLOSED. TR BAND IN PLACE WITH FINGER WARM, NO SLELLING OR BLEEDING
--- NOTE | 2019-05-03 10:54 | NUR ---
I have reviewed this patient and I concur with the Shift Assessment completed by the Licensed Practical Nurse today this shift.
[2019-05-03 12:01] VITALS: BP 117/76
--- NOTE | 2019-05-03 12:51 | NUR ---
TR BAND DCD AND DRSG APPLIED. NO BLEEDING OR SWELLING TO SITE. TELEMERTY SHOWS SR. NO C/O OF CHEST PAIN
[2019-05-03] MEDS ORDERED: ATIVAN1 MG PO (12:58)
--- NOTE | 2019-05-03 14:16 | NUR ---
PT DISCHARGED. IV DCD WITH TIP INTACT. CATH SITE WITH DRSG DRY AND INTACT. INSTRUCTIONS GIVEN.TO PRIVATE CAR PER WHEELCHAIR
--- NOTE | 2019-05-04 08:02 | MORECARE ---
CASE MANAGEMENT DISCHARGE SUMMARY PATIENT: HEMANTH JUDD UNIT: [id number] ADM DATE: 05/01/19 AGE: 38 : [birth year] SEX: M ROOM/BED: D.2121 AUTHOR: MALLIKA GALEAS PHYSICIAN: REFERRING PHYSICIAN: RODOLFO CHOI MD DATE OF SERVICE: 05/04/19 Discharge Plan Patient Name: [facility]EMANTH UJDD [facility] 1980 Planned Disposition: Home Anticipated Discharge Date: 05/03/19 Discharge Date: 05/03/2019 Expected LOS: 2 Initial Reviewer: [email or web address] Initial Review Date: 05/04/2019 Generated: 05/04/19 9:01 am Patient Name: HEMANTH JUDD Page 10402 at 0802 All edits/amendments must be made on the electronic document DICTATION DATE: 05/04/19 08 PREPARER SAMPLES AND REPAIRS: JORGE 05/04/19 08 RPT#: [id number] DC DATE:05/03/19 STATUS: DIS IN [facility] [address] [facility] [place] [address] END OF REPORT
== END 2019-05-03 14:28 | disposition home or self-care (01) ==
LOC: D.ER 18:59 → D.M2 20:02 → OBSVTIME 20:03 → D.M2 05-03 14:28
PROVIDERS: Family Medicine; Internal Medicine Cardiovascular Disease; ADMIT Internal Medicine Nephrology; ATTEND Internal Medicine Nephrology
DX: I25.110 Atherosclerotic heart disease of native coronary artery with unstable angina pectoris (principal); I11.0 Hypertensive heart disease with heart failure; I50.23 Acute on chronic systolic (congestive) heart failure; N17.9 Acute kidney failure, unspecified; F17.203 Nicotine dependence unspecified, with withdrawal; E78.5 Hyperlipidemia, unspecified

== ENCOUNTER 2019-06-08 16:59 | Emergency (ER) | payer MEDICAID ==
[~2019-06-08] VITALS: Ht 195.6 cm; Wt 140.9 kg
[~2019-06-08 16:59] MED LIST changes: +LISINOPRIL-HCT1 EAC4 PO; +ZESTORETIC 20-1 EACH PO
[2019-06-08 17:51] LABS: APTT 30.3 SECONDS (22.8-39.4); INR 1.02 (0.85-1.17); PROTIME 13.3 SECONDS (11.6-15.0)
[2019-06-08 17:52] LABS: BASOPHILS 0.2 % (0-2); EOSINOPHILS 1.3 % (0-7); HEMATOCRIT 49.8 % (42.0-54.0); HEMOGLOBIN 17.4 g/dL (13.5-17.5); IMMATURE GRANULOCYTES 0.2 % (0-5); LYMPHOCYTES 20.6 % (15-50); MCH 32.3 pg (26.0-34.0); MCHC 34.9 g/dL (31.0-37.0); MCV 92.6 fL (80.0-100.0); MEAN PLATELET VOLUME 11.1 fL (7.4-10.4); MONOCYTES 9.3 % (2-11); NEUTROPHILS 68.4 % (40-80); PLATELET COUNT 212 10x3/uL (130-400); RBC 5.38 10x6/uL (4.20-6.10); WBC 8.3 10x3/uL (4.8-10.8)
[2019-06-08 17:53] LABS: CALC OSMOLALITY 271 mosm/kg (275-300); CALCIUM 9.2 mg/dL (8.5-10.1); CARBON DIOXIDE 25.7 mmol/L (21.0-32.0); CHLORIDE - SERUM 102 mmol/L (98-107); GLUCOSE 98 mg/dL (74-106); POTASSIUM - SERUM 3.8 mmol/L (3.5-5.1); SODIUM 135 mmol/L (136-145); UREA NITROGEN 17 mg/dL (7-18); eGFR NON AFRICAN AMERICAN 88 mL/min (90-120)
[2019-06-08 18:06] LABS: ALBUMIN 3.6 g/dL (3.4-5.0); ALKALINE PHOSPHATASE 87 U/L (30-120); ALT (SGPT) 211 U/L (10-68); BILIRUBIN - TOTAL 0.71 mg/dL (0.2-1.3); CKMB 0.8 U/L (0.0-3.6); CREATINE KINASE 140 UL (21-232); MAGNESIUM - SERUM 1.9 mg/dL (1.8-2.4); PROTEIN - SERUM 7.5 g/dL (6.4-8.2); TROPONIN-I 0.039 ng/mL (0.000-0.060)
[2019-06-08 18:46] LABS: BILIRUBIN NEGATIVE (NEGATIVE); GLUCOSE NEGATIVE (NEGATIVE); KETONE NEGATIVE (NEGATIVE); NITRITE NEGATIVE (NEGATIVE); SPECIFIC GRAVITY 1.015 (1.005-1.020); UROBILINOGEN NORMAL (NORMAL)
[2019-06-08 18:53] VITALS: Ht 195.6 cm; Wt 140.9 kg
[2019-06-08 18:54] LABS: UDS - AMPHET NEGATIVE QUAL (NEGATIVE); UDS - BARB NEGATIVE QUAL (NEGATIVE); UDS - BENZO POSITIVE QUAL (NEGATIVE); UDS - COCAINE NEGATIVE QUAL (NEGATIVE); UDS - OPIATE POSITIVE QUAL (NEGATIVE); UDS - PCP NEGATIVE QUAL (NEGATIVE); UDS - THC NEGATIVE QUAL (NEGATIVE)
[2019-06-08] MEDS ORDERED: MEDROL DOSE PACK4 MG PO (20:32)
[2019-06-08 21:00] VITALS: BP 121/80
--- NOTE | 2019-06-10 16:48 | CN ---
PATIENT NAME:HEMANTH LOVE MEDICAL RECORD: [id number] : [birth year] LOCATION:.ER ADMIT DATE: ACCOUNT: [id number] CONSULTING PHYSICIAN: ADELIA BAEZA MD REFERRING PHYSICIAN: ROSALIE RAMIREZ MD DATE OF CONSULTATION: 06/08/2019 ADMITTING DIAGNOSES: 1. Angina. 2. Coronary artery disease. 3. Multivessel percutaneous transluminal coronary angioplasty stent. 4. Hypertension. 5. Hyperlipidemia. 6. Gastroesophageal reflux disease. 7. Shortness of breath, dyspnea on exertion. 8. Tachycardia. HISTORY OF PRESENT ILLNESS: Mr. Love was just discharged yesterday after 2-vessel PTCA stent. He presents with shortness of breath, palpitations and recurrent chest pain. He is noted to have a heart rate in the 110 range. He has been tried on beta-blockers in the past and has not tolerated them secondary to hypotension. He is currently on lisinopril for blood pressure control and his systolic blood pressures in the 110 range. He is as well on Imdur. He has been tried on Ranexa in the past with no relief of his chest pain. He as well has many other issues for which he is on Ativan and Neurontin. His EKG is with no changes. On cardiac catheterization, there was nothing else that needed a dressing. PHYSICAL EXAMINATION: CONSTITUTIONAL/GENERAL APPEARANCE: Well nourished, well developed, appears stated age. EYES: Lids and conjunctivae noninjected. No discharge. No pallor. ENT: Lips within normal limit. No cyanosis. No pallor. NECK: Carotid arteries, bilateral normal upstroke. No bruits. No thrills. No jugular venous pressure or distention. CERVICAL LYMPH NODES: Nontender. Nonenlarged. THYROID: Not enlarged. No nodules. CARDIOVASCULAR: Precordial exam, nondisplaced. No heaves or pericardial thrills. Rate and rhythm, regular. Heart sounds, normal S1, normal S2. No S3, no gallop, no rub. Systolic murmur, not heard. Diastolic murmur, not heard. RESPIRATORY: Respiratory effort, unlabored. Normal curvature. No thoracic deformity. No chest wall tenderness. Percussion, resonant. Auscultation, clear. No wheezes, no rales, no rhonchi. ABDOMEN: Soft, nondistended, nontender. No abdominal pain, no vomiting and normal appetite. MUSCULOSKELETAL: No joint tenderness, normal gait, normal tone. SKIN: Warm and dry. OVERALL IMPRESSION: Angina. At this time, this is chronic stable angina. We can try a different beta-jonathan at followup. At this time, continue his current medications. No other cardiac workup or treatment is necessary. TRANSINT:[id number] Voice Confirmation ID: [id number] DOCUMENT ID: [id number] CONSULT REPORT [id number] HEMANTH LOVE, ADELIA LEMOS at 1648 CC: [id number] DICTATION DATE: 06/08/19 185 WORKERS COMPENSATION ADJUSTER: 06/09/19 0616 DEP ER 06/08/19 [id number] [place] [address]
== END 2019-06-08 22:35 | disposition home or self-care (01) ==
LOC: D.ER 16:59
PROVIDERS: Family Medicine
DX: R06.02 Shortness of breath (principal); E04.9 Nontoxic goiter, unspecified; R07.9 Chest pain, unspecified; G89.18 Other acute postprocedural pain; Z98.890 Other specified postprocedural states; Z86.73 Personal history of transient ischemic attack (TIA), and cerebral infarction without residual deficits; G62.9 Polyneuropathy, unspecified; I10 Essential (primary) hypertension; I25.2 Old myocardial infarction; E78.5 Hyperlipidemia, unspecified; Z72.0 Tobacco use

== ENCOUNTER 2019-09-04 19:24 | Emergency (ER) | payer MEDICAID ==
[~2019-09-04] VITALS: Ht 195.6 cm; Wt 136.4 kg
[2019-09-04 19:31] VITALS: Ht 195.6 cm; Wt 136.4 kg
[2019-09-04] MEDS ORDERED: LANOXIN125 MCG PO (19:34)
[2019-09-04] MEDS ORDERED: PLAVIX75 MG PO (19:56)
[2019-09-04] MEDS ORDERED: ATIVAN1 MG PO (19:56)
[2019-09-04 20:30] VITALS: BP 118/76
== END 2019-09-04 20:30 | disposition home or self-care (01) ==
LOC: D.ER 19:24
DX: F15.93 Other stimulant use, unspecified with withdrawal (principal); I25.2 Old myocardial infarction; I10 Essential (primary) hypertension; Z72.0 Tobacco use

== ENCOUNTER 2019-12-08 01:19 | Observation (INO) | payer MEDICAID ==
[~2019-12-08] VITALS: Ht 195.6 cm; Wt 149.1 kg
--- NOTE | ~2019-12-08 | HEMODYNAMI ---
PATIENT:HEMANTH JUDD MEDICAL RECORD: [id number] : 76 LOCATION:[facility], [place] D.[address]121 ADMISSION DATE: 12/08/19 Generatedon:12/10/20199:43 Patient name: HEMANTH JUDD Patient #: [id number] : 1980 Date of study: 12/10/2019 Page: Of Hemodynamic Procedure Report Patient Data Patient Demographics Procedure consent was obtained First Name: HEMANTH Gender: Male Last Name: DUTCH : 1980 [facility] Initial: J Age: 39 year(s) Patient #: [id number] Race: SSN: [id number] Additional ID: [id number] Contact details Address: [address] [place] [address] State: [place] City: [facility] Zip code: [address] Past Medical History Allergies Allergen Reaction Date Comments Reported Other allergy 01/02/2018 Other allergy 04/04/2018 cOREG Other allergy 08/05/2018 Coreg Other allergy 02/15/2019 carvedilol Other allergy 06/07/2019 coreg Other allergy 12/10/2019 CARVEDILOL Admission Admission Data Admission Date: 12/08/2019 Admission Time: 4:02 Room #: 2121 Lab Results Lab Result Date: 12/10/2019 Lab Result Time: 0:00 Biochemistry Name Units Result Min Max BUN mg/dl 13 --(--*-)-- 7 18 Creatinine mg/dl 1 --(--*-)-- 0.6 1.3 eGFR ml/min 87 -*(----)-- 90 120 NONAFRICAN CBC Name Units Result Min Max Hematocrit % 55.6 --(----)*- 42 54 Hemoglobin g/dl 18.8 --(----)-* 13.5 17.5 Procedure Procedure Types Cath Procedure Diagnostic Procedure LHC LHC w/Coronaries Sedation Charges Moderate Sedation up to 15 minutes Procedure Description Procedure Date Procedure Date: 12/10/2019 Procedure Start Time: 9:27 Procedure End Time: 9:41 Procedure Staff Name Function Rohan Collins MD Performing Physician Hanna Torres RN Nurse Kelly Rey RT Owner Operator Tanker Truck Driver Nikkie Colón RT Scrub Becca Aly RT Monitor Procedure Data Cath Procedure Fluoroscopy Diagnostic fluoroscopy Total fluoroscopy Time: 4.7 time: 4.7 min min Diagnostic fluoroscopy Total fluoroscopy dose: dose: 1107 mGy 1107 mGy Contrast Material Contrast Material Type Amount (ml) Isovue 300 70 Entry Location Entry Primary Successful Side Size Upsize Upsize Entry Closure Padron ccessful Closure Location (Fr) 1 (Fr) 2 (Fr) Remarks Device Remarks Radial Right 6 Fr Manual artery Short Compression Estimated blood loss: 5 ml Diagnostic catheters Device Type Used For End Catheter Placement DIAGNOSTIC [place] 4.5 5Fr Procedure catheter ([id number]) DIAGNOSTIC [place] 110cm 5 Procedure Fr catheter ([id number]) Procedure Complications No complications Procedure Medications Medication Administration Route Dosage Oxygen etCO2 Nasal cannula 2 l/min Lidocaine 2% added to field 20 Heparin Flush Bag added to field 2 bags (1000units/500ml NS) 0.9% NaCl I.V. 100 ml/hr Radial Cocktail I.A. 1 syringe (Verapamil 2mg/Nitro 400mcg/Heparin 1500units) Versed I.V. 2 mg Fentanyl I.V. 100 mcg Versed I.V. 2 mg Fentanyl I.V. 100 mcg Versed I.V. 1 mg Fentanyl I.V. 50 mcg Hemodynamics Rest HGB: 18.8 (g/dl) Heart Rate: 87 (bpm) Pressure Samples Time Site Value (mmHg) Purpose Heart Use Rate(bpm) 9:29 LV 57/-3,57 Snapshot 65 9:30 AO 99/68(79) Pullback 89 9:30 LV 108/6,14 Pullback 89 Gradients Valve Time Site 1 Site 2 Mean SEP/DFP Peak To Heart Use (mmHg) (sec/min) Peak Rate (mmHg) (bpm) Aortic 9:30 LV AO 6 8 9 89 108/6,14 99/68(79) Calculations Valve P-P Mean Valve Index Valve Source Name Gradient Area Flow (cm2) Aortic 9 6 9 6 Snapshots Pre Cath Intra NCS Post Cath Vital Signs Time Heart Resp SPO2 etCO2 NIBP (mmHg) Rhythm Pain Sedation Rate (ipm) (%) (mmHg) Status Level (bpm) 9:09:01 91 15 93 0 125/90(103) NSR 0 (11) 10(A) , No pain 9:13:21 82 16 92 28.3 116/79(102) NSR 0 (11) 10(A) , No pain 9:17:39 78 17 94 35 115/68(101) NSR 0 (11) 10(A) , No pain 9:23:01 82 12 95 43.2 113/74(103) NSR 0 (11) 10(A) , No pain 9:27:23 81 16 94 42.4 114/65(86) NSR 0 (11) 9(A) , No pain 9:31:43 87 18 93 33.5 110/68(84) NSR 0 (11) 9(A) , No pain 9:38:06 84 17 94 50.6 Time NSR 0 (11) 10(A) Exceeded , No pain 9:42:30 86 9 91 46.9 110/65(82) NSR 0 (11) 10(A) , No pain Medications Time Medication Route Dose Verified Delivered Reason Notes Effectiveness by by 9:14:26 Oxygen etCO2 2 l/min Rohan Buffie used for Nasal Dennis Torres RN procedure cannula 9:14:32 Lidocaine 2% added 20ml Rohan Rohan for local to vial Dennis Collins MD anesthetic field 9:14:39 Heparin Flush added 2 bags Rohan Rohan used for Bag to Dennis Collins MD procedure (1000units/500ml field NS) 9:14:47 0.9% NaCl I.V. 100 Rohan Buffie Per ml/hr Dennis Torres RN physician 9:20:19 Versed I.V. 2 mg Rohan Buffie for sedation Dennis Torres RN 9:20:25 Fentanyl I.V. 100 mcg Rohan Buffie for sedation Dennis Torres RN 9:25:49 Versed I.V. 2 mg Rohan Buffie for sedation Dennis Torres RN 9:25:52 Fentanyl I.V. 100 mcg Rohan Buffie for sedation Dennis Torres RN 9:28:29 Radial Cocktail I.A. 1 Rohan Rohan for (Verapamil syringe Dennis Collins MD vasodilation 2mg/Nitro 400mcg/Heparin 1500units) 9:31:07 Versed I.V. 1 mg Rohan Rohan for sedation Dennis Collins MD 9:31:12 Fentanyl I.V. 50 mcg Rohan Rohan for sedation Dennis Collins MD Procedure Log Time Note 8:21:19 Informed consent obtained and on chart 8:22:38 Procedure Status Urgent Heart Cath (IP). 8:22:39 Time tracking: Regular hours (M-F 7:00 - 5:00) 8:22:43 Plan of Care:Hemodynamics will remain stable., Cardiac rhythm will remain stable., Comfort level will be maintained., Respiratory function will remain adequate., Patient/ family verbilizes understanding of procedure., Procedure tolerated without complication., Recovers from procedure without complications.. 8:23:52 H&P Date Dictated: 12/09/2019 ER History on chart.. 8:41:12 Hanna Torres RN sent for patient. Start room use. 9:07:46 Patient received from Med II to CCL 1 Alert and oriented. Tansferred to table in Supine position. 9:07:47 Warm blankets applied, and ashley hugger turned on for patient comfort. 9:07:48 Correct patient and procedure confirmed by team. 9:07:49 ECG and BP/O2 sat monitors applied to patient. 9:07:50 Vital chart was started 9:08:08 Baseline sample Acquired. 9:08:15 Rhythm: sinus rhythm 9:08:18 Full Disclosure recording started 9:08:20 Pre-procedure instructions explained to patient. 9:08:21 Pre-op teaching completed and patient verbalized understanding. 9:08:23 Family unavailable. 9:08:32 Patient NPO since Midnight. 9:13:03 Patient allergic to Other allergyCARVEDILOL 9:13:09 Is the patient allergic to Iodine/contrast media? No. 9:13:12 Was the patient premedicated? Yes 9:13:17 Is patient on blood thinner?Yes 9:13:21 ACC The patient was administered the following blood thiners within the last 24 hours: ACCPlavix 9:13:25 Patient diabetic? No. 9:13:27 ----Pre-sedation anethsthesia assessment.---- 9:13:31 Previous problem with sedation/anesthesia? No ? 9:13:33 Snore? Yes 9:13:37 Sleep apnea? No 9:13:40 Deviated septum? Unknown 9:13:42 Opens mouth fully? Yes 9:13:44 Sticks out tongue? Yes 9:13:58 Airway obstruction? No ? 9:14:02 Dentures? No ? 9:14:04 9:14:08 Pre procedure: right dorsailis pedis pulse 1+ Palpable, but thready & weak; easily obliterated 9:14:21 IV patent on arrival in left hand with 0.9% NaCl at [facility]. 9:14:26 Oxygen 2 l/min etCO2 Nasal cannula was administered by Hanna Torres RN; used for procedure; Verbal order read back and verified. 9:14:32 Lidocaine 2% 20ml vial added to field was administered by Rohan Collins MD; for local anesthetic; Verbal order read back and verified. 9:14:35 Right Radial & Right Groin area was prepped with chlora-prep and draped in sterile fashion 9:14:39 Heparin Flush Bag (1000units/500ml NS) 2 bags added to field was administered by Rohan Collins MD; used for procedure; Verbal order read back and verified. 9:14:45 Alarms reviewed by R. N. 9:14:46 Sharps counted by scrub and verified by R.N. 9:14:47 0.9% NaCl 100 ml/hr I.V. was administered by Hanna Torres RN; Per physician; Verbal order read back and verified. 9:14:51 Use device set Radial Dx or PCI 9:14:53 ACIST Syringe (25432) opened to sterile field. 9:14:53 Medline Cath Pack ([id number]) opened to sterile field. 9:14:55 Bag Decanter () opened to sterile field. 9:14:56 ACIST Hand Control (01273) opened to sterile field. 9:14:57 ACIST Manifold (44353) opened to sterile field. 9:14:58 MBrace Wrist Support ([id number]) opened to sterile field. 9:14:59 NEEDLE Cook 21G 4cm Radial ([id number]) opened to sterile field. 9:15:02 EMERALD Guide Wire (467-366) opened to sterile field. 9:15:03 SHEATH 6FR RAIN ([id number]) opened to sterile field. 9:17:55 Lab Result : eGFR NONAFRICAN 87 ml/min 9:17:55 Lab Result : Hemoglobin 18.8 g/dl 9:17:55 Lab Result : BUN 13 mg/dl 9:17:55 Lab Result : Creatinine 1 mg/dl 9:17:55 Lab Result : Hematocrit 55.6 % 9:19:43 Lab results completed and on chart. 9:19:47 Physician arrived 9:19:48 --------ALL STOP TIME OUT------ 9:19:49 Final Timeout: patient, procedure, and site verified with staff and physician. All members of the team are in agreement. 9:19:53 Right Radial & Right Groin site verified by team. 9:20:00 Fire Safety Assessment: A--An alcohol-based skin anteseptic being used preoperatively., C--Open oxygen or nitrous oxide is being used., D--An ESU, laser, or fiber-optic light is being used. 9:20:05 Physical assessment completed. ASA score P 2 - A patient with mild systemic disease as per Rohan Collins MD. 9:20:13 2) 60-89 Mildly reduced kidney function, and other findings (as for stage 1) point to kidney disease. 9:20:19 Versed 2 mg I.V. was administered by Hanna Torres RN; for sedation; Verbal order read back and verified. 9:20:19 Maximum allowable contrast dose (3.7 X eGFR X 0.75)241 ml. 9:20:25 Fentanyl 100 mcg I.V. was administered by Hanna Torres RN; for sedation; Verbal order read back and verified. 9:20:26 Sedation plan: IV Moderate Sedation Medication:Versed, Fentanyl 9:25:30 Zero performed for pressure channel P1 9:25:49 Versed 2 mg I.V. was administered by Hanna Torres RN; for sedation; Verbal order read back and verified. 9:25:52 Fentanyl 100 mcg I.V. was administered by Hanna Torres RN; for sedation; Verbal order read back and verified. 9:27:22 Procedure started. 9:27:30 Local anesthetic to right radial artery with Lidocaine 2% by Rohan Collins MD.INITIAL ACCESS ONLY 9:27:48 A 6 Fr Short sheath was inserted into the Right Radial artery 9:28:20 A DIAGNOSTIC [place] 4.5 5Fr catheter ([id number]) was advanced over the wire and used for Procedure. 9:28:29 Radial Cocktail (Verapamil 2mg/Nitro 400mcg/Heparin 1500units) 1 syringe I.A. was administered by Rohan Collins MD; for vasodilation; Verbal order read back and verified. 9:29:36 Injector settings: Ml/sec: 5, Volume: 15, 9:29:40 LV gram done using DUVAL 9:30:18 EF : 35 % 9:30:39 LV hemodynamics recorded. 9:31:07 Versed 1 mg I.V. was administered by Rohan Collins MD; for sedation; Verbal order read back and verified. 9:31:12 Fentanyl 50 mcg I.V. was administered by Rohan Collins MD; for sedation; Verbal order read back and verified. 9:31:15 LCA angiography performed. 9:31:24 Injector settings: Ml/sec: 3, Volume: 6, 9:32:46 RCA angiography performed. 9:33:04 Injector settings: Ml/sec: 3, Volume: 6, 9:33:10 Catheter removed. 9:33:48 A DIAGNOSTIC [place] 110cm 5 Fr catheter (016369) was advanced over the wire and used for Procedure. 9:35:46 LCA angiography performed. 9:35:49 Injector settings: Ml/sec: 3, Volume: 6, 9:36:50 Catheter removed. 9:37:02 ZEPHYR LARGE TR BAND (686259) opened to sterile field. 9:37:29 Sheath removed intact; hemostasis achieved with Manual Compression to the Right Radial artery. 9:37:32 Procedure ended.(Physican Out) 9:38:23 Contrast amount:Isovue 300 70ml. 9:38:31 Fluoroscopy time 04.70 minutes. 9:38:37 Flurop Dose total: 1107 9:38:37 Fluoroscopy dose: 1107 mGy 9:38:50 Dose Area Product 97038 mGy/cm. 9:38:55 Maximum allowable dose exceeded? No. 9:38:57 Sharps counted by scrub and verified by R.N. 9:39:01 [place] band inflated with 10cc of air. 9:39:04 Insertion/operative site no bleeding no hematoma. 9:39:21 Post right radial artery:stable 9:39:33 Post-procedure physical assessment completed. ASA score P 2 - A patient with mild systemic disease as per Rohan Collins MD. 9:39:54 Post procedure rhythm: unchanged. 9:39:58 Estimated blood loss: 5 ml 9:40:00 Post procedure instruction explained to patient.Patient verbalizes understanding. 9:40:02 Patient needs reinforcement of post procedure teaching. 9:40:43 Procedure type changed to Cath procedure, Diagnostic procedure, LHC, C w/Coronaries, Sedation Charges, Moderate Sedation up to 15 minutes 9:40:48 Procedure and supply charges have been captured, reviewed, submitted and are correct. 9:41:25 Procedure Complication : No complications 9:41:29 Vital chart was stopped 9:41:32 [facility] Findings: mild to moderate CAD (<70%) 9:41:37 See physician's report for complete and final results. 9:41:40 Report given to [facility]. 9:41:46 Patient transfered to [facility] with Bed. 9:41:49 Procedure ended. 9:41:49 Full Disclosure recording stopped 9:42:03 End room use (Document Last) Device Usage Item Name Manufacture Quantity Catalog Hospital Part Current Minima l Lot# / Number Charge Number Stock Stock Serial# Code ACIST Acist 1 98340 [id number] [id number] 20 Syringe Medical (83334) Systems Inc Medline Medline 1 [id number] [id number] 96825 337287 5 Cath Pack ([id number]) Bag Microtek 1 725042 14434 436835 5 Decanter Medical Inc. () ACIST Hand Acist 1 75867 786064 026763 358968 5 Control Medical (45213) Systems Inc ACIST Acist 1 81167 886461 291855 440054 5 Manifold Medical (88955) Systems Inc MBrace Advanced 1 140-0250-00 694337 91016 216368 5 Wrist Vascular Support Dynamics ([id number]) NEEDLE Cook Cook Medical 1 [id number] 054849 553449 786977 5 21G 4cm Radial (W82917) EMERALD Cardinal 1 502-093 229995 502331 213571 5 Guide Wire Health (502-546) SHEATH 6FR Cardinal 1 [id number] 240991 5492000 849505 5 [facility] Health (5273247) DIAGNOSTIC Terumo 1 40-5012 631696 262862 603818 5 [place] 4.5 5Fr catheter (776993) DIAGNOSTIC Terumo 1 40-5013 257782 265020 958167 5 [place] 110cm 5 Fr catheter (771092) ZEPHYR Cardinal 1 495615 421779 5738692 070046 5 LARGE TR Health BAND (693450) Signature Audit [place] Stage Time Signature Unsigned Intra-Procedure 12/10/2019 Becca 9:42:29 AM Jermain RT(R) (CV) Intra-Procedure 12/10/2019 Hanna Torres RN 9:43:09 AM Intra-Procedure 12/10/2019 Rohan Collins MD 9:43:38 AM [facility] [address] [place] [address]
[~2019-12-08 01:19] MED LIST changes: +LANOXIN125 MCG PO
[2019-12-08 01:58] LABS: BASOPHILS 0.5 % (0-2); EOSINOPHILS 2.5 % (0-7); HEMATOCRIT 50.4 % (42.0-54.0); HEMOGLOBIN 17.5 g/dL (13.5-17.5); IMMATURE GRANULOCYTES 0.3 % (0-5); LYMPHOCYTES 39.3 % (15-50); MCH 32.6 pg (26.0-34.0); MCHC 34.7 g/dL (31.0-37.0); MONOCYTES 7.6 % (2-11); NEUTROPHILS 49.8 % (40-80); PLATELET COUNT 185 10x3/uL (130-400); RBC 5.36 10x6/uL (4.20-6.10); RDW 13.5 % (11.5-14.5); WBC 7.9 10x3/uL (4.8-10.8)
[2019-12-08 02:05] LABS: CALC OSMOLALITY 274 mosm/kg (275-300); CALCIUM 8.5 mg/dL (8.5-10.1); CARBON DIOXIDE 23.4 mmol/L (21.0-32.0); CHLORIDE - SERUM 103 mmol/L (98-107); CREATININE - SERUM 1.1 mg/dL (0.6-1.3); POTASSIUM - SERUM 3.7 mmol/L (3.5-5.1); SODIUM 134 mmol/L (136-145); UREA NITROGEN 13 mg/dL (7-18); eGFR NON AFRICAN AMERICAN 78 mL/min (90-120)
[2019-12-08 02:06] LABS: APTT 30.5 SECONDS (22.8-39.4); GLUCOSE 222 mg/dL (74-106); INR 1.02 (0.85-1.17); PROTIME 13.4 SECONDS (11.6-15.0)
[2019-12-08 02:08] LABS: D-DIMER-QUANTITATIVE 0.3 ug/mLFEU (0.20-0.54)
[2019-12-08 02:19] LABS: ALBUMIN 3.7 g/dL (3.4-5.0); ALKALINE PHOSPHATASE 107 U/L (30-120); ALT (SGPT) 228 U/L (10-68); BILIRUBIN - TOTAL 0.51 mg/dL (0.2-1.3); C-REACTIVE PROTEIN 0.2 mg/dL (0.0-0.9); LIPASE 186 U/L (73-393); MAGNESIUM - SERUM 1.8 mg/dL (1.8-2.4); PRO BNP 144 pg/mL (0-125); PROTEIN - SERUM 7.3 g/dL (6.4-8.2); TROPONIN-I < 0.017 ng/mL (0.000-0.060)
[2019-12-08 05:28] VITALS: BP 110/56; BMI 38.6
[2019-12-08 10:30] VITALS: BP 104/66
[2019-12-08 13:52] VITALS: Ht 195.6 cm; Wt 149.1 kg
[2019-12-08 14:41] VITALS: BP 98/68
[2019-12-08 17:36] VITALS: BP 114/67
--- NOTE | 2019-12-08 19:44 | NUR ---
RECEIVED BEDSIDE REPORT. ROUNDING COMPLETE. PATIENT IS ALERT AND ORIENTED, RESTING COMFORTABLY IN BED. RESPIRATIONS ARE EVEN AND UNLABORED. NO S/S OF DISTRESS. NO C/O PAIN. CALL LIGHT WITHIN REACH. WILL CPOC.
[2019-12-08 23:20] VITALS: BP 108/68
[2019-12-09 04:00] VITALS: BP 94/64
[2019-12-09 07:06] LABS: BASOPHILS 0.3 % (0-2); HEMATOCRIT 50.7 % (42.0-54.0); HEMOGLOBIN 17.2 g/dL (13.5-17.5); IMMATURE GRANULOCYTES 0.1 % (0-5); LYMPHOCYTES 40.8 % (15-50); MCHC 33.9 g/dL (31.0-37.0); MCV 94.2 fL (80.0-100.0); MEAN PLATELET VOLUME 11.4 fL (7.4-10.4); MONOCYTES 9.4 % (2-11); NEUTROPHILS 46.4 % (40-80); PLATELET COUNT 195 10x3/uL (130-400); RBC 5.38 10x6/uL (4.20-6.10); RDW 13.6 % (11.5-14.5); WBC 6.7 10x3/uL (4.8-10.8)
[2019-12-09 07:23] LABS: CALCIUM 8.7 mg/dL (8.5-10.1); CARBON DIOXIDE 28.7 mmol/L (21.0-32.0); CHLORIDE - SERUM 103 mmol/L (98-107); CREATININE - SERUM 0.9 mg/dL (0.6-1.3); MAGNESIUM - SERUM 1.9 mg/dL (1.8-2.4); PHOSPHOROUS 4.1 mg/dL (2.5-4.9); POTASSIUM - SERUM 4.1 mmol/L (3.5-5.1); SODIUM 137 mmol/L (136-145); UREA NITROGEN 12 mg/dL (7-18); eGFR NON AFRICAN AMERICAN > 90 mL/min (90-120)
[2019-12-09 07:28] LABS: CALC OSMOLALITY 274 mosm/kg (275-300); GLUCOSE 113 mg/dL (74-106); TROPONIN-I < 0.017 ng/mL (0.000-0.060)
[2019-12-09 08:10] VITALS: BP 118/71
[2019-12-09 12:00] VITALS: BP 93/53
[2019-12-09 15:29] VITALS: BP 145/61
[2019-12-09 16:07] LABS: BASOPHILS 0.3 % (0-2); HEMATOCRIT 52.9 % (42.0-54.0); IMMATURE GRANULOCYTES 0.3 % (0-5); LYMPHOCYTES 37.9 % (15-50); MCH 32.1 pg (26.0-34.0); MCV 94.5 fL (80.0-100.0); MEAN PLATELET VOLUME 10.7 fL (7.4-10.4); MONOCYTES 9.1 % (2-11); NEUTROPHILS 50.4 % (40-80); PLATELET COUNT 190 10x3/uL (130-400); RDW 13.3 % (11.5-14.5); WBC 9.2 10x3/uL (4.8-10.8)
[2019-12-09 16:21] LABS: ALT (SGPT) 233 U/L (10-68); CALC OSMOLALITY 265 mosm/kg (275-300); CALCIUM 8.6 mg/dL (8.5-10.1); CARBON DIOXIDE 28.9 mmol/L (21.0-32.0); CHLORIDE - SERUM 100 mmol/L (98-107); CHOL - HDL RATIO 6.8 ratio (2.3-4.9); CHOLESTEROL, TOTAL 196 mg/dL (0-200); CREATININE - SERUM 1.1 mg/dL (0.6-1.3); GLUCOSE 86 mg/dL (74-106); HDL CHOLESTEROL 29 mg/dL (32-96); LDL CHOLESTEROL 111 mg/dL (0-100); LDL-HDL RATIO 3.8 ratio (1.5-3.5); POTASSIUM - SERUM 4.2 mmol/L (3.5-5.1); SODIUM 134 mmol/L (136-145); TRIGLYCERIDE 284 mg/dL (30-200); UREA NITROGEN 11 mg/dL (7-18); eGFR NON AFRICAN AMERICAN 78 mL/min (90-120)
--- NOTE | 2019-12-09 19:30 | NUR ---
RECEIVED BEDSIDE REPORT. ROUNDING COMPLETE. PATIENT IS AAO X 4. RESPIRATIONS ARE EVEN AND UNLABORED. NO S/S OF DISTRESS. NO C/O PAIN. NEEDS MET. CALL LIGHT WITHIN REACH. WILL CPOC.
[2019-12-09 21:35] VITALS: BP 118/70
[2019-12-10] VITALS: BP 98/62
[2019-12-10 04:00] VITALS: BP 116/78
[2019-12-10 06:34] LABS: BASOPHILS 0.4 % (0-2); EOSINOPHILS 2.1 % (0-7); HEMATOCRIT 55.6 % (42.0-54.0); HEMOGLOBIN 18.8 g/dL (13.5-17.5); IMMATURE GRANULOCYTES 0.2 % (0-5); LYMPHOCYTES 41.1 % (15-50); MCH 32.1 pg (26.0-34.0); MCHC 33.8 g/dL (31.0-37.0); MONOCYTES 8.6 % (2-11); NEUTROPHILS 47.6 % (40-80); PLATELET COUNT 197 10x3/uL (130-400); RBC 5.85 10x6/uL (4.20-6.10); RDW 13.4 % (11.5-14.5); WBC 8.4 10x3/uL (4.8-10.8)
[2019-12-10 06:54] LABS: CALC OSMOLALITY 273 mosm/kg (275-300); CALCIUM 9.1 mg/dL (8.5-10.1); CHLORIDE - SERUM 99 mmol/L (98-107); MAGNESIUM - SERUM 2.1 mg/dL (1.8-2.4); PHOSPHOROUS 4.1 mg/dL (2.5-4.9); POTASSIUM - SERUM 4.5 mmol/L (3.5-5.1); SODIUM 136 mmol/L (136-145); UREA NITROGEN 13 mg/dL (7-18); eGFR NON AFRICAN AMERICAN 87 mL/min (90-120)
[2019-12-10 06:55] LABS: GLUCOSE 132 mg/dL (74-106)
[2019-12-10 08:00] VITALS: BP 127/90
--- NOTE | 2019-12-10 10:00 | NUR ---
PT RETURN FROM SENIOR ADVISOR. R.RADIAL IS C/D/I WITH NO S/S OF HEMATOMA PRESENT. ZEPHER BAND IN PLACE. NO S/S OF DISTRESS NOTED. NS INFUSING @100ML/HR VIA L.HAND PIV. PT DENIES ANY NEEDS AT THIS TIME. TELEMETRY ON. WILL CTM.
[2019-12-10] MEDS ORDERED: ENTRESTO 24 MG1 EACH PO (11:08)
[2019-12-10 12:00] VITALS: BP 103/61
--- NOTE | 2019-12-10 15:01 | NUR ---
PT DISCHARGED HOME WITH MOTHER, QASIM. HE REFUSED A WHEELCHAIR STATING HE IS JUST GOING TO WALK OUT. PIV REMOVED WITH CATHETER TIP FULLY INTACT. TELEMETRY REMOVED AND RETURNED. PT SIGNED PROPER DISCHARGE INSTRUCTIONS AND REMOVED ALL VALUABLES FROM THE ROOM. ATTEMPTED TO WALK PT OUT BUT HE CONTINUED TO REFUSE.
== END 2019-12-10 15:06 | disposition home or self-care (01) ==
LOC: D.ER 01:19 → OBSVTIME 04:02 → D.M2 04:02
PROVIDERS: Family Medicine; Internal Medicine Cardiovascular Disease; ADMIT Family Medicine; ATTEND Family Medicine
DX: I25.110 Atherosclerotic heart disease of native coronary artery with unstable angina pectoris (principal); R07.9 Chest pain, unspecified; R79.89 Other specified abnormal findings of blood chemistry; I42.9 Cardiomyopathy, unspecified; I11.0 Hypertensive heart disease with heart failure; I50.9 Heart failure, unspecified

== ENCOUNTER 2020-01-11 11:53 | Emergency (ER) | payer MEDICAID ==
[~2020-01-11] VITALS: Ht 195.6 cm; Wt 136.4 kg
[~2020-01-11 11:53] MED LIST changes: +ENTRESTO 24 MG1 EACH PO
[2020-01-11 12:21] VITALS: BP 135/86; Ht 195.6 cm; Wt 136.4 kg
== END 2020-01-11 19:02 | disposition home or self-care (01) ==
LOC: D.ER 11:53
DX: Z76.0 Encounter for issue of repeat prescription (principal); I10 Essential (primary) hypertension; E78.5 Hyperlipidemia, unspecified; I25.2 Old myocardial infarction; Z72.0 Tobacco use

== ENCOUNTER 2020-08-25 15:49 | Emergency (ER) | payer MEDICAID ==
[2020-04-25 13:21] VITALS: Ht 195.6 cm; Wt 140.9 kg
[~2020-08-25] VITALS: Ht 195.6 cm; Wt 140.9 kg
[2020-08-25 15:54] VITALS: BP 123/86
[2020-08-25 16:27] LABS: BASOPHILS 0.5 % (0-2); EOSINOPHILS 1.9 % (0-7); HEMATOCRIT 53.8 % (42.0-54.0); HEMOGLOBIN 18.5 g/dL (13.5-17.5); IMMATURE GRANULOCYTES 0.2 % (0-5); LYMPHOCYTE ABS# 2.85 10x3/uL (1.32-3.57); LYMPHOCYTES 32.3 % (15-50); MCH 32.1 pg (26.0-34.0); MCHC 34.4 g/dL (31.0-37.0); MCV 93.4 fL (80.0-100.0); MEAN PLATELET VOLUME 11.5 fL (7.4-10.4); MONOCYTES 8.4 % (2-11); NEUTROPHIL ABS# 4.99 10x3/uL (1.78-5.38); NEUTROPHILS 56.7 % (40-80); PLATELET COUNT 192 10x3/uL (130-400); RBC 5.76 10x6/uL (4.20-6.10); RDW 12.8 % (11.5-14.5); WBC 8.8 10x3/uL (4.8-10.8)
[2020-08-25 16:36] LABS: APTT 31.4 SECONDS (22.8-39.4); INR 1.12 (0.85-1.17); PROTIME 13.3 SECONDS (11.6-15.0)
[2020-08-25 16:39] LABS: CALC OSMOLALITY 274 mosm/kg (275-300); CALCIUM 9.4 mg/dL (8.5-10.1); CHLORIDE - SERUM 102 mmol/L (98-107); CREATININE - SERUM 0.8 mg/dL (0.6-1.3); GLUCOSE 159 mg/dL (74-106); POTASSIUM - SERUM 4.1 mmol/L (3.5-5.1); SODIUM 136 mmol/L (136-145); UREA NITROGEN 12 mg/dL (7-18); eGFR NON AFRICAN AMERICAN > 90 mL/min (90-120)
[2020-08-25 17:04] LABS: ALBUMIN 3.5 g/dL (3.4-5.0); ALKALINE PHOSPHATASE 92 U/L (30-120); ALT (SGPT) 355 U/L (10-68); BILIRUBIN - TOTAL 1.13 mg/dL (0.2-1.3); CKMB 1.7 U/L (0.0-3.6); CREATINE KINASE 153 UL (21-232); MAGNESIUM - SERUM 1.9 mg/dL (1.8-2.4); PROTEIN - SERUM 7.5 g/dL (6.4-8.2)
[2020-08-25 17:06] LABS: TROPONIN-I < 0.017 ng/mL (0.000-0.060)
== END 2020-08-25 18:25 | disposition home or self-care (01) ==
LOC: D.ER 15:49
PROVIDERS: Family Medicine
DX: F41.9 Anxiety disorder, unspecified (principal); R07.89 Other chest pain; I10 Essential (primary) hypertension; E78.5 Hyperlipidemia, unspecified; Z72.0 Tobacco use